=== PATIENT | male | born 1935 | race Hispanic/Latino ===

== ENCOUNTER 2018-12-02 20:23 | Emergency (ER) | payer OTHER ==
[~2018-12-02] VITALS: Ht 172.7 cm; Wt 72.6 kg
[~2018-12-02 20:23] MED LIST: Z.0.FINASTERIDE5 MG PO; Z.0.HYDROCHLOROTHIA2 PO; Z.0.LISINOPRIL20 MG PO; Z.0.LOVASTATIN20 MG PO; Z.0.OMEPRAZOLE20 M1 PO; Z.0.TAMSULOSIN HCL0. PO; Z.2.METFORMIN HCL500 PO
[2018-12-02 21:39] LABS: BASOPHILS % 0.4 % (0.0-1.0); EOSINOPHILS % 0.4 % (0.0-6.0); HEMOGLOBIN 8.7 g/dL (14.0-18.0); LYMPHOCYTES # (AUTO) 0.9 (1.0-3.2); LYMPHOCYTES % 16.1 % (18.0-39.1); MEAN CORPUSCULAR HEMOGLOBIN 31.1 pg (28-32); MEAN CORPUSCULAR HGB CONC 33.5 g/dL (31-35); MEAN CORPUSCULAR VOLUME 92.9 fL (81-99); MONOCYTES # (AUTO) 0.8 (0.2-0.8); MONOCYTES % 15.7 % (4.4-11.3); NEUTROPHILS # (AUTO) 3.5 (2.1-6.9); NEUTROPHILS % 66.5 % (38.7-80.0); PLATELET COUNT 117 x10e3/uL (140-360); RED CELL DISTRIBUTION WIDTH 13.6 % (11.7-14.4)
[2018-12-02 21:40] LABS: BILIRUBIN,URINE NEGATIVE (NEGATIVE); CLARITY,URINE CLOUDY (CLEAR); COLOR,URINE RED (YELLOW); KETONES,URINE NEGATIVE (NEGATIVE); LEUKOCYTE ESTERASE ,URINE TRACE (NEGATIVE); NITRITE,URINE NEGATIVE (NEGATIVE); PROTEIN,URINE DIPSTICK 2+ (NEGATIVE); URINE UROBILINOGEN 0.2 mg/dL (0.2 - 1)
[2018-12-02 21:51] LABS: BACTERIA,URINE FEW /HPF; EPITHELIAL CELLS,URINE RARE /LPF; RBC,URINE >50 /HPF (0-5); WBC,URINE (MAN) 0-5 /HPF (0-5)
[2018-12-02 21:56] LABS: ALBUMIN 3.8 g/dL (3.5-5.0); ALBUMIN/GLOBULIN RATIO 1.5 (0.8-2.0); ANION GAP 14.9 mmol/L (8-16); CALCIUM 8.4 mg/dL (8.4-10.2); CREATININE, SERUM 1.64 mg/dL (0.72-1.25); POTASSIUM 3.9 mmol/L (3.5-5.1)
[2018-12-02] MEDS ORDERED: SODIUM CHLORIDE 0.9% 1000ML 1,000 ML IV STA (22:19)
[2018-12-02] MEDS ORDERED: SODIUM CHLORIDE 0.9% 50ML 50 ML ONE (23:06)
[2018-12-02] MEDS ORDERED: IOPAMIDOL 370 MG/ML 200 ML INFUS..BTL INJ ONE (23:06)
[2018-12-03] MEDS ORDERED: SODIUM CHLORIDE 0.9% 100 ML ONE (00:44)
[2018-12-03] MEDS ORDERED: IOPAMIDOL 370 MG/ML 200 ML INFUS..BTL INJ ONE (00:45)
--- NOTE | 2018-12-03 00:49 | Diagnostic Imaging Report ---
EXAM: CT Abdomen and Pelvis WITHOUT and WITH contrast INDICATION: painless hematuria COMPARISON: None. TECHNIQUE: Abdomen and pelvis were scanned utilizing a multidetector helical scanner from the lung base to the pubic symphysis before and after administration of IV contrast. Coronal and sagittal reformations were obtained. CT Urogram protocol was performed. Scan was performed pre- and nephrogenic/excretory phase with a 10 minute split bolus in prone position. Excretory phase CT was repeated with patient in prone position to delineate anterior bladder wall. IV CONTRAST: 100 mL of Isovue 370 ORAL CONTRAST: Water COMPLICATIONS: None RADIATION DOSE: Total DLP: 1349 mGy*cm Estimated effective dose: (DLP x 0.015 x size factor) mSv CTDIvol has been reviewed. It is below the limits set by the Radiation Protocol Committee (RPC). Dose modulation, iterative reconstruction, and/or weight based adjustment of the mA/kV was utilized to reduce the radiation dose to as low as reasonably achievable. FINDINGS: LINES and TUBES: None. LOWER THORAX: Mild cardiomegaly with coronary artery calcifications/stones. Mild bronchial wall thickening in the lower lungs with some mucus plugging. HEPATOBILIARY: No focal hepatic lesions. No biliary ductal dilation. GALLBLADDER: Cholecystectomy clips in the gallbladder fossa. SPLEEN: No splenomegaly. PANCREAS: No focal masses or ductal dilatation. ADRENALS: No adrenal nodules KIDNEYS/URETERS: Mild bilateral perinephric fat stranding can be seen in the setting of renal insufficiency or senescence. Kidneys enhance symmetrically. No hydronephrosis. Small bilateral simple renal cysts. No solid mass lesions. No stones. GI TRACT: No abnormal distention, wall thickening, or evidence of bowel obstruction. Appendix is normal. PELVIC ORGANS/BLADDER: A 3.2 x 2 x 2.4 cm lobular endoluminal mucosal based nonmobile mass arising from/adherent to the right posterior urinary bladder wall. No obvious perivesicular extension. Enlarged lobular prostate measures up to 5.1 cm and indents the bladder floor. Fatty spermatic cords. LYMPH NODES: No lymphadenopathy. VESSELS: There is moderate atherosclerotic disease in the aorta and major arterial branches. PERITONEUM / RETROPERITONEUM: No free air or fluid. BONES: Right partial laminectomy at L5. Advanced degenerative changes in the spine with the anchylosis of the lower lumbar spine facets. Scalloped well-circumscribed sclerotic irregularity of the left iliac consistent with bone harvesting donor site SOFT TISSUES: Unremarkable. IMPRESSION: A 3.2 cm nonmobile nodular mucosal-based endoluminal mass along the right posterior bladder wall is concerning for malignancy. Recommend urology referral. Enlarged prostate indents the bladder floor. Findings in the lower lungs may reflect bronchitis. Signed by: Emiliano Maier DO on 12/03/2018 12:45 AM
[2018-12-03 02:18] VITALS: BP 136/56
== END 2018-12-03 01:53 | disposition home or self-care (01) ==
LOC: ER 20:23
DX: N30.01 Acute cystitis with hematuria (principal); N42.9 Disorder of prostate, unspecified
CPT/HCPCS: 36415; 74178; 80053; 81001; 85025; 87086; 99283; J7030; J7050; Q9967 ×2

== ENCOUNTER → 2019-09-13 | Outpatient (CLI) | payer OTHER ==
--- NOTE | 2019-09-13 12:53 | Diagnostic Imaging Report ---
EXAM: Renal Ultrasound INDICATION: ^[id number] ^1201 ^CYST OF KIDNEY COMPARISON: CT abdomen and pelvis of 12/07/2018 TECHNIQUE: Transverse and longitudinal images of the kidneys and bladder were obtained. FINDINGS: Right Kidney: Length: 10.9 cm Appearance: Normal echogenicity. Collecting system: No hydronephrosis Stones: None Cyst/Mass: None Left Kidney: Length: 12.2 cm Appearance: Normal echogenicity. Collecting system: No hydronephrosis Stones: None Cyst/Mass: Lower pole 1.5 x 1.1 x 1.2 cm anechoic simple cyst. Bladder: No mass or calculi. Bilateral ureteral jets visualized. Prevoid volume estimate of 306 cc. The prostate measures up to 5.1 x 4.1 x 4.8 cm with volume estimate of 53 cc. IMPRESSION: No hydronephrosis or renal calculus. Left lower pole simple cyst. Prostatomegaly. Signed by: Ray Watts MD on 09/13/2019 12:50 PM
== END ==
LOC: US 11:35
PROVIDERS: ATTEND Urology
DX: N28.1 Cyst of kidney, acquired (principal)
CPT/HCPCS: 76770

== ENCOUNTER → 2019-11-13 | Day surgery (SDC) | payer OTHER ==
[2019-11-08 14:50] LABS: BASOPHILS % 0.4 % (0.0-1.0); EOSINOPHILS # (AUTO) 0.1 (0.0-0.4); HEMATOCRIT 27.5 % (38.2-49.6); HEMOGLOBIN 9.2 g/dL (14.0-18.0); LYMPHOCYTES # (AUTO) 0.8 (1.0-3.2); MEAN CORPUSCULAR HEMOGLOBIN 31.8 pg (28-32); MEAN CORPUSCULAR HGB CONC 33.5 g/dL (31-35); MEAN CORPUSCULAR VOLUME 95.2 fL (81-99); MONOCYTES # (AUTO) 1.3 (0.2-0.8); MONOCYTES % 18.1 % (4.4-11.3); NEUTROPHILS % 68.4 % (38.7-80.0); PLATELET COUNT 131 x10e3/uL (140-360); RED BLOOD COUNT 2.89 x10e6/uL (4.3-5.7); RED CELL DISTRIBUTION WIDTH 14.4 % (11.7-14.4)
[2019-11-08 15:06] LABS: ANION GAP 12.5 mmol/L (8-16); CREATININE, SERUM 1.54 mg/dL (0.72-1.25); POTASSIUM 3.5 mmol/L (3.5-5.1)
[~2019-11-13] MED LIST changes: +AMLODIPINE BESYL5 MG PO; +ARTIFICIAL TEAR15 ML OU; +ASPIRIN81 MG PO; +AZITHROMYCIN250 MG PO; +B&O 60MG R/S 60 MG SUPP PR ONE; +BACITRACIN-POL3.5 GM OD; +BENEFIBER1 EAC1 PO; +CEFDINIR300 MG PO; +CEFTRIAXONE SOD 1 GM/NS 50 ML 50 ML IV ONE; +CENTRUM SILVER1 EAC3 PO; +FENOFIBRATE145 MG PO; +FENOFIBRATE160 MG PO; +GENTLE TEARS OU; +HYDRALAZINE HCL25 MG PO; +IOPAMIDOL 300MG/ML 50ML INFUS..BTL IV ONE; +LASIX20 MG PO; +LATANOPROST2.5 ML OS; +LIDOCAINE HCL 2% LOCAL INJ 5 ML SDV VIAL INJ ONE; +METOPROLOL TART25 MG PO; +ONDANSETRON HCL INJ 2MG/ML 2ML 2 MG/ML VIAL ONE; +OXYBUTYNIN CHLOR5 MG PO; +PROPOFOL IV EMULSION 10 MG/ML 20 ML VIAL ONE; +SEVOFLURANE INHAL SOLN 250 ML PEN BTL ONE
[2019-11-13 14:30] VITALS: BP 150/57
== END | disposition home or self-care (01) ==
LOC: OR 09:51
PROVIDERS: ATTEND Urology
DX: C67.1 Malignant neoplasm of dome of bladder (principal); E11.22 Type 2 diabetes mellitus with diabetic chronic kidney disease; I12.9 Hypertensive chronic kidney disease with stage 1 through stage 4 chronic kidney disease, or unspecified chronic kidney disease; N18.9 Chronic kidney disease, unspecified; N39.0 Urinary tract infection, site not specified; N13.70 Vesicoureteral-reflux, unspecified; N40.1 Benign prostatic hyperplasia with lower urinary tract symptoms; R39.14 Feeling of incomplete bladder emptying; R35.1 Nocturia; R80.9 Proteinuria, unspecified; N45.1 Epididymitis; H91.90 Unspecified hearing loss, unspecified ear; K21.9 Gastro-esophageal reflux disease without esophagitis; I44.4 Left anterior fascicular block; I45.10 Unspecified right bundle-branch block; Z01.810 Encounter for preprocedural cardiovascular examination; Z01.812 Encounter for preprocedural laboratory examination; Z11.59 Encounter for screening for other viral diseases
CPT/HCPCS: 36415; 71046; 74420; 80048; 82948; 85025; 88304; 88307; 93005; C1758; J0696; J2001; J2405; U0002

== ENCOUNTER 2019-11-16 21:17 | Emergency (ER) | payer OTHER ==
[~2019-11-16] VITALS: Ht 170.2 cm; Wt 70.3 kg
[~2019-11-16 21:17] MED LIST changes: -ARTIFICIAL TEAR15 ML OU; -ASPIRIN81 MG PO; -B&O 60MG R/S 60 MG SUPP PR ONE; -CEFDINIR300 MG PO; -CEFTRIAXONE SOD 1 GM/NS 50 ML 50 ML IV ONE; -FENOFIBRATE160 MG PO; -IOPAMIDOL 300MG/ML 50ML INFUS..BTL IV ONE; -LASIX20 MG PO; -LIDOCAINE HCL 2% LOCAL INJ 5 ML SDV VIAL INJ ONE; -ONDANSETRON HCL INJ 2MG/ML 2ML 2 MG/ML VIAL ONE; -OXYBUTYNIN CHLOR5 MG PO; -PROPOFOL IV EMULSION 10 MG/ML 20 ML VIAL ONE; -SEVOFLURANE INHAL SOLN 250 ML PEN BTL ONE
[2019-11-16] MEDS ORDERED: LIDOCAINE JELLY 2% 10ML URO-JET TOP ONE (21:45)
[2019-11-16] MEDS ORDERED: LIDOCAINE JELLY 2% 10ML URO-JET ONE (21:46)
[2019-11-16 22:27] VITALS: BP 149/57
== END 2019-11-16 22:41 | disposition home or self-care (01) ==
LOC: ER 21:22
DX: T83.091A Other mechanical complication of indwelling urethral catheter, initial encounter (principal); I10 Essential (primary) hypertension; E11.9 Type 2 diabetes mellitus without complications; E78.5 Hyperlipidemia, unspecified; K21.9 Gastro-esophageal reflux disease without esophagitis
CPT/HCPCS: 51700; 87086; 99283

== ENCOUNTER → 2019-12-26 | Outpatient (CLI) | payer OTHER ==
[~2019-12-26] MED LIST changes: +ARTIFICIAL TEAR15 ML OU; +FENOFIBRATE160 MG PO; +IOPAMIDOL 370 MG/ML 200 ML INFUS..BTL INJ ONE; +OXYBUTYNIN CHLOR5 MG PO; +SODIUM CHLORIDE 0.9% 50ML 50 ML ONE
[2019-12-26 08:22] LABS: CREATININE, SERUM 1.41 mg/dL (0.72-1.25)
--- NOTE | 2019-12-26 09:34 | Diagnostic Imaging Report ---
CT of the abdomen and pelvis with contrast TECHNIQUE: CT of the abdomen and pelvis WITH intravenous contrast and WITHOUT oral contrast. Dose modulation, iterative reconstruction, and/or weight-based adjustment of the mA/kV was utilized to reduce the radiation dose to as low as reasonably achievable. IV CONTRAST: 100 mL of Isovue 370 ORAL CONTRAST: None RADIATION DOSE: Total DLP: 324 mGy*cm COMPLICATIONS: None INDICATION: ^[id number] ^0820 ^MALIG NEOP OF BLADDER. COMPARISON: 12/07/2018. FINDINGS: LOWER THORAX: Moderate bilateral pleural effusions are noted. HEPATOBILIARY: Liver is diffusely hypoattenuating. No suspicious mass. Gallbladder is surgically absent. No biliary ductal dilatation. SPLEEN: No splenomegaly. PANCREAS: No focal masses or ductal dilatation. ADRENALS: No adrenal nodules. KIDNEYS/URETERS: Symmetric enhancement without hydronephrosis or suspicious mass. Ureters are not dilated. Left inferior pole hyperdense cyst is stable. PELVIC ORGANS/BLADDER: Previously identified enhancing mass in the posterior right urinary bladder is not well visualized on today's examination. Prostate measures 4.5 x 4.2 x 23.0 with a volume of 30 cc. PERITONEUM/RETROPERITONEUM: No free air or fluid. LYMPH NODES: No lymphadenopathy. VESSELS: Mild ectasia of the infrarenal abdominal aorta is noted measuring up to 2.8 cm in AP diameter. GI TRACT: Bowel loops are not dilated. Stomach and portions of colon are decompressed limiting evaluation. Normal appendix is noted. Mild retained stool burden is noted throughout the colon. No surrounding inflammatory changes are noted. BONES AND SOFT TISSUES: No acute osseous abnormality. Advanced degenerative changes of the lumbar spine are noted from L3 through S1 with significant posterior fusion and multilevel disc space narrowing. No suspicious blastic lesion is identified. Soft tissues are unremarkable IMPRESSION: 1. Previously identified bladder mass is not well visualized on this examination. No suspicious renal mass. Negative for hydronephrosis. 2. Stable hepatic steatosis and prostatomegaly. 3. Moderate bilateral pleural effusions. 4. Mildly ectatic infrarenal abdominal aorta measuring up to 2.8 cm. Signed by: Teodoro Silva MD on 12/26/2019 9:31 AM
== END ==
LOC: CT 07:33
PROVIDERS: ATTEND Urology
DX: C67.9 Malignant neoplasm of bladder, unspecified (principal)
CPT/HCPCS: 36415; 74177; 82565; 84520; Q9967

== ENCOUNTER 2019-12-27 11:37 | Observation (INO) | payer OTHER ==
[~2019-12-27] VITALS: Ht 170.2 cm; Wt 70.8 kg
[~2019-12-27 11:37] MED LIST changes: -ARTIFICIAL TEAR15 ML OU; -FENOFIBRATE160 MG PO; -IOPAMIDOL 370 MG/ML 200 ML INFUS..BTL INJ ONE; -OXYBUTYNIN CHLOR5 MG PO; -SODIUM CHLORIDE 0.9% 50ML 50 ML ONE
[2019-12-27] MEDS ORDERED: ASPIRIN 81 MG CHEW TAB PO ONE (12:15)
[2019-12-27 12:16] LABS: BASOPHILS % 0.4 % (0.0-1.0); EOSINOPHILS # (AUTO) 0.1 (0.0-0.4); EOSINOPHILS % 1.1 % (0.0-6.0); HEMOGLOBIN 9.4 g/dL (14.0-18.0); LYMPHOCYTES # (AUTO) 0.5 (1.0-3.2); LYMPHOCYTES % 9.2 % (18.0-39.1); MEAN CORPUSCULAR HEMOGLOBIN 30.4 pg (28-32); MEAN CORPUSCULAR HGB CONC 33.6 g/dL (31-35); MEAN CORPUSCULAR VOLUME 90.6 fL (81-99); MONOCYTES # (AUTO) 0.9 (0.2-0.8); MONOCYTES % 17.4 % (4.4-11.3); NEUTROPHILS # (AUTO) 3.7 (2.1-6.9); PLATELET COUNT 143 x10e3/uL (140-360); RED BLOOD COUNT 3.09 x10e6/uL (4.3-5.7); RED CELL DISTRIBUTION WIDTH 14.4 % (11.7-14.4)
[2019-12-27 12:29] LABS: ALBUMIN 3.8 g/dL (3.5-5.0); ALBUMIN/GLOBULIN RATIO 1.4 (0.8-2.0); ANION GAP 10.1 mmol/L (8-16); CALCIUM 8.6 mg/dL (8.4-10.2); CREATININE, SERUM 1.38 mg/dL (0.72-1.25); MAGNESIUM 1.7 MG/DL (1.3-2.1); POTASSIUM 3.1 mmol/L (3.5-5.1)
--- NOTE | 2019-12-27 12:29 | Diagnostic Imaging Report ---
X-ray chest frontal view History: Chest pressure Comparison: 11/08/2019 Findings: Lines and tubes: Not applicable Central airways: Unremarkable Cardiac silhouette: Likely cardiomegaly Mediastinal silhouettes: Atherosclerotic aorta Pleura: No pleural effusion, pneumothorax or thickening Diaphragms: Unremarkable Lungs: Opacity in both lower lung zones left more than right that could represent atelectasis/pneumonia. Skeletal structures: Unremarkable Extrathoracic soft tissues: Unremarkable Impression: Bilateral lower lobe opacities suggestive of atelectasis/pneumonia. Clinical correlation is requested. Signed by: Peewee Wei MD on 12/27/2019 12:25 PM
[2019-12-27] MEDS ORDERED: PANTOPRAZOLE 40 MG 10ML VIAL IV ONE (12:30)
[2019-12-27 12:31] LABS: INR 1.09; PROTHROMBIN TIME 14.7 seconds (11.9-14.5)
[2019-12-27 12:32] LABS: PARTIAL THROMBOPLASTIN TIME 37.3 seconds (23.8-35.5)
[2019-12-27 12:36] LABS: CREATINE KINASE MB 1.5 ng/mL (0-5.0)
[2019-12-27] MEDS ORDERED: POTASSIUM CHLORIDE 20 MEQ TAB CR PO STA (12:36)
--- NOTE | 2019-12-27 12:43 | Emergency Department Note ---
History of Present Illnes History of Present Illness Chief Complaint: Chest Pain History of Present Illness This is a 84 year old male Patient in from home with complaints of chest pressure and pain that woke him up last night at about 0300. Patient denies pain at this time but states that the pain when it was there was r adiating from his mid sternum to the left side of his chest. Patient reports that he was sweating when the pain started as well. Denies previous heart attack and denies previous stenting. No distress at this time. IV placed to left AC and blood drawn for lab analysis. EKG obtained. distress at this time. IV placed to left AC and blood drawn for lab analysis. EKG obtained. Historian: Patient Arrival Mode: Car Front Desk Admin Required: No Onset (how long ago): hour(s) Location: [facility] Quality: PRESSURE Radiation: Reports extremity (LEFT SHOULDER/ARM) Severity: moderate Onset quality: sudden Timing of current episode: intermittent Progression: waxing and waning Chronicity: new Context: Denies recent illness Relieving factors: none Exacerbating factors: none Associated symptoms: Reports chest pain, Reports diaphoresis, Reports shortness of breath (WITH CP); Denies cough, Denies fever/chills Past Medical/Family History Physician Review I have reviewed the patient's past medical and family history. Any updates have been documented here. Past Medical History Recent Fever: No Clinical Suspicion of Infectio: No New/Unexplained Change in Ment: No Past Medical History: Hypertension, Diabetes, GERD, Hyperlipedemia Other Medical History: BPH Past Surgical History: Back Surgery Other Surgery: TURP Social History Smoking Cessation: Never Smoker Counseling Performed: No Alcohol Use: None Any Illegal Drug Use: No TB Exposure/Symptoms: No Physically hurt or threatened: No Family History Family history of heart diseas: No Other Last Tetanus: UTD Any Pre-Existing Lines (PICC,: No Review of Systems Review of Systems Constitutional: Reports no symptoms EENTM: Reports no symptoms Cardiovascular: Reports as per HPI Respiratory: Reports no symptoms Gastrointestinal: Reports no symptoms Genitourinary: Reports no symptoms Musculoskeletal: Reports no symptoms Integumentary: Reports no symptoms Neurological: Reports no symptoms Psychological: Reports no symptoms Endocrine: Reports no symptoms Hematological/Lymphatic: Reports no symptoms Physical Exam Related Data Allergies: Coded Allergies: No Known Allergies (Unverified , 10/02/10) Triage Vital Signs Vital Signs Date Time Temp Pulse Resp B/P (MAP) Pulse Ox O2 Delivery O2 Flow Rate FiO2 12/27/19 11:53 98.2 76 24 178/68 97 Room Air Vital signs reviewed: Yes Physical Exam CONSTITUTIONAL Constitutional: Present well-developed, Present well-nourished HENT HENT: Present normocephalic, Present atraumatic, Present oropharynx clear/moist, Present nose normal HENT L/R: Present left ext ear normal, Present right ext ear normal EYES Eyes: Reports PERRL, Reports conjunctivae normal NECK Neck: Present ROM normal PULMONARY Pulmonary: Present effort normal, Present breath sounds normal CARDIOVASCULAR Cardiovascular: Present regular rhythm, Present heart sounds normal, Present capillary refill normal, Present normal rate GASTROINTESTINAL Abdominal: Present soft, Present nontender, Present bowel sounds normal GENITOURINARY Genitourinary: Present exam deferred SKIN Skin: Present warm, Present dry MUSCULOSKELETAL Musculoskeletal: Present ROM normal NEUROLOGICAL Neurological: Present alert, Present oriented x 3, Present no gross motor or sensory deficits PSYCHOLOGICAL Psychological: Present mood/affect normal, Present judgement normal Results Laboratory Result Diagram: 12/27/19 1200 12/27/19 1200 Laboratory Laboratory Tests Test 12/27/19 12:00 White Blood Count 5.30 x10e3/uL (4.8-10.8) Red Blood Count 3.09 x10e6/uL (4.3-5.7) Hemoglobin 9.4 g/dL (14.0-18.0) Hematocrit 28.0 % (38.2-49.6) Mean Corpuscular Volume 90.6 fL (81-99) Mean Corpuscular Hemoglobin 30.4 pg (28-32) Mean Corpuscular Hemoglobin Concent 33.6 g/dL (31-35) Red Cell Distribution Width 14.4 % (11.7-14.4) Platelet Count 143 x10e3/uL (140-360) Neutrophils (%) (Auto) 70.0 % (38.7-80.0) Lymphocytes (%) (Auto) 9.2 % (18.0-39.1) Monocytes (%) (Auto) 17.4 % (4.4-11.3) Eosinophils (%) (Auto) 1.1 % (0.0-6.0) Basophils (%) (Auto) 0.4 % (0.0-1.0) Neutrophils # (Auto) 3.7 (2.1-6.9) Lymphocytes # (Auto) 0.5 (1.0-3.2) Monocytes # (Auto) 0.9 (0.2-0.8) Eosinophils # (Auto) 0.1 (0.0-0.4) Basophils # (Auto) 0.0 (0.0-0.1) Absolute Immature Granulocyte (auto 0.10 x10e3/uL (0-0.1) Prothrombin Time 14.7 seconds (11.9-14.5) Prothromb Time International Ratio 1.09 Activated Partial Thromboplast Time 37.3 seconds (23.8-35.5) Sodium Level 137 mmol/L (136-145) Potassium Level 3.1 mmol/L (3.5-5.1) Chloride Level 102 mmol/L (98-107) Carbon Dioxide Level 28 mmol/L (22-29) Anion Gap 10.1 mmol/L (8-16) Blood Urea Nitrogen 26 mg/dL (7-26) Creatinine 1.38 mg/dL (0.72-1.25) Estimat Glomerular Filtration Rate 49 ML/MIN (60-) BUN/Creatinine Ratio 19 (6-25) Glucose Level 168 mg/dL (74-118) Calcium Level 8.6 mg/dL (8.4-10.2) Magnesium Level 1.7 MG/DL (1.3-2.1) Total Bilirubin 0.7 mg/dL (0.2-1.2) Aspartate Amino Transf (AST/SGOT) 19 IU/L (5-34) Alanine Aminotransferase (ALT/SGPT) 12 IU/L (0-55) Alkaline Phosphatase 30 IU/L (40-150) Creatine Kinase 41 IU/L (30-200) Total Protein 6.5 g/dL (6.5-8.1) Albumin 3.8 g/dL (3.5-5.0) Globulin 2.7 g/dL (2.3-3.5) Albumin/Globulin Ratio 1.4 (0.8-2.0) Lipase 38 U/L (8-78) Lab results reviewed: Yes Imaging Imaging results reviewed: Yes Impressions X-ray chest frontal view History: Chest pressure Comparison: 11/08/2019 Findings: Lines and tubes: Not applicable Central airways: Unremarkable Cardiac silhouette: Likely cardiomegaly Mediastinal silhouettes: Atherosclerotic aorta Pleura: No pleural effusion, pneumothorax or thickening Diaphragms: Unremarkable Lungs: Opacity in both lower lung zones left more than right that could represent atelectasis/pneumonia. Skeletal structures: Unremarkable Extrathoracic soft tissues: Unremarkable Impression: Bilateral lower lobe opacities suggestive of atelectasis/pneumonia. Clinical correlation is requested. Signed by: Peewee Wei MD on 12/27/2019 12:25 PM Procedures 12 Lead ECG Interpretation ECG Interpretation : ECG: ECG 1 Front Desk Admin: Interpreted by ED physician Date: Dec 27, 2019 Time: 12:00 Prior ECG tracings: reviewed Rhythm: sinus rhythm (WITH 1ST DEGREE AVB) Rate: normal BPM: 76 Conduction: bifascicular block (RBBB & LAFB) T wave inversion: aVR, aVL, V1, V2, V3 Other findings: LVH with strain Clinical Impression: abnormal ECG Assessment & Plan Medical Decision Making MDM CP WITH TYPICAL SX'S, NONE CURRENTLY - CBC, CHEM, ECG, CARDIACS, CXR - R/O STEMI/NSTEMI, ADMIT R/O ACS Reassessment Reassessment ADMIT TO DR BUNN (COVERING FOR Ya DEL CASTILLO) Assessment & Plan Final Impression: (1) Chest pain Depart Disposition: ADMITTED Last Vital Signs Date Time Temp Pulse Resp B/P (MAP) Pulse Ox O2 Delivery O2 Flow Rate FiO2 12/27/19 11:53 98.2 76 24 178/68 97 Room Air Home Meds Reported Medications Wheat Dextrin (BENEFIBER) 1 Each Powd.pack, 1 TAB PO DAILY 11/12/19 Bacitracin/Polymyxin B Sulfate (BACITRACIN-POLYMYXIN EYE OINT) 3.5 Gm Oint...g., 1 PUMP OD TID 11/12/19 Latanoprost (LATANOPROST) 2.5 Ml Drops, 1 DROP OS HS, BOTTLE 11/12/19 [Gentle Tears] No Conflict Check, 1 DROP OU DAILY 11/12/19 Azithromycin (Z-ISIAH) 250 Mg Tablet, 250 MG PO UD, #1 UDPKT Z-Pack 11/12/19 Metoprolol Tartrate (METOPROLOL TARTRATE) 25 Mg Tablet, 25 MG PO BID, TAB 10/6/20 Amlodipine Besylate (AMLODIPINE BESYLATE) 5 Mg Tablet, 5 MG PO DAILY, #30 TAB 11/12/19 Hydralazine Hcl (HYDRALAZINE HCL) 25 Mg Tab, 25 MG PO TID, TAB 11/12/19 Fenofibrate Nanocrystallized (FENOFIBRATE) 145 Mg Tablet, 160 MG PO DAILY 11/12/19 Mu-Vits-Min Th/Lycopene/Lutein (CENTRUM SILVER TABLET) 1 Each Tablet, 1 TAB PO DAILY 11/12/19 Omeprazole (Omeprazole) 20 Mg Tablet.dr, 20 MG PO DAILY 09/26/11 Lovastatin (Lovastatin) 20 Mg Tablet, 20 MG PO DAILY 09/26/11 Lisinopril (Lisinopril) 20 Mg Tablet, 40 MG PO DAILY 09/26/11 Hydrochlorothiazide (Hydrochlorothiazide) 25 Mg Tablet, 12.5 MG PO DAILY 09/26/11 Medications in the ED Pantoprazole Sodium 40 mg ONCE ONCE IV Last administered on 12/27/19at 12:14; Admin Dose 40 MG; Start 12/27/19 at 12:30; Stop 12/27/19 at 12:31; Status DC Aspirin 324 mg ONCE ONCE PO Last administered on 12/27/19at 12:14; Admin Dose 324 MG; Start 12/27/19 at 12:15; Stop 12/27/19 at 12:16; Status DC JIM MOREIRA MD Dec 27, 2019 12:43
[2019-12-27] MEDS ORDERED: MORPHINE SULFATE 2 MG/ML SYR 1ML IV PRN (14:15)
[2019-12-27] MEDS ORDERED: ONDANSETRON HCL INJ 2MG/ML 2ML 2 MG/ML VIAL IV PRN ×2 (14:15→21:45)
[2019-12-27] MEDS ORDERED: FENOFIBRATE160 MG PO (14:58)
[2019-12-27] MEDS ORDERED: OXYBUTYNIN CHLOR5 MG PO (14:59)
[2019-12-27] MEDS ORDERED: ARTIFICIAL TEAR15 ML OU (15:44)
[2019-12-27 15:51] VITALS: BP 166/70
[2019-12-27 15:54] VITALS: BP 166/70
[2019-12-27 16:23] VITALS: BP 166/70
[2019-12-27] MEDS: FAMOTIDINE 20 MG/2 ML VIAL IV SCH ×2 (16:23→21:03)
[2019-12-27 19:21] LABS: CREATINE KINASE MB 1.6 ng/mL (0-5.0)
[2019-12-27 20:00] VITALS: BP 173/53
[2019-12-27 20:53] VITALS: BP 173/53
[2019-12-27] MEDS ORDERED: DEXTROSE 50% SYRINGE 50 ML IV PRN (21:45)
[2019-12-27] MEDS ORDERED: POTASSIUM CHLORIDE 20 MEQ TAB CR PO PRN (21:45)
[2019-12-27] MEDS ORDERED: TRAMADOL HCL 50 MG TAB PO PRN (21:45)
[2019-12-27] MEDS ORDERED: HYDRALAZINE HCL 20 MG/ML VIAL IV PRN (21:45)
[2019-12-27] MEDS ORDERED: ACETAMINOPHEN 325 MG TAB PO PRN (21:45)
[2019-12-27] MEDS ORDERED: POLYETHYLENE GLYCOL 3350 17 GM PACK PO PRN (21:45)
[2019-12-27] MEDS ORDERED: BENZONATATE 100 MG CAP PO PRN (21:45)
[2019-12-27] MEDS ORDERED: ALBUTEROL/IPRATROPIUM 3 ML NEB NEB PRN (21:45)
[2019-12-27] MEDS ORDERED: DOCUSATE SODIUM 100 MG CAP PO PRN (21:45)
[2019-12-27] MEDS ORDERED: MELATONIN 5 MG TABLET PO PRN (21:45)
[2019-12-27] MEDS ORDERED: HYDRALAZINE HCL 25 MG TAB PO ONE (22:00)
[2019-12-27 23:40] LABS: CREATINE KINASE MB 1.6 ng/mL (0-5.0)
[2019-12-28] VITALS: BP 165/62
--- NOTE | 2019-12-28 00:35 | Consultation ---
DATE OF CONSULTATION: 12/27/2019 Cardiology Consultation Note REASON FOR THE CONSULTATION: Chest pain and shortness of breath. HISTORY OF PRESENT ILLNESS: The patient is an 84-year-old man with history of hypertension, diabetes mellitus type 2, hyperlipidemia, anemia, myelodysplastic syndrome (MDS) admitted with a 4-week history of fatigue, leg edema, and decreased appetite. The patient also gives a 3-day history of dry cough and shortness of breath. The patient's noticed he was wheezing at night the last three days. hot dipper on the day of admission, the patient developed retrosternal chest pressure/pain with radiation to the left arm and shoulder and associated with shortness of breath and diaphoresis. The patient denies palpitations, presyncope, syncope, or PND. The patient has stable one-pillow orthopnea. He denies fever, chills, sputum production, abdominal pain, nausea, vomiting or bleeding. His symptoms lasted about 1 to 2 hours and resolved spontaneously. When I saw the patient, he denied chest pain or shortness of breath. The patient has no history of coronary artery disease, VA, congestive heart failure, arrhythmias. He has history of myelodysplastic syndrome with severe anemia. He has received blood transfusion; most recently, 2 units of packed red blood cells on 12/04/2019 at [facility]. The patient's daughter told me that his pretransfusion hemoglobin was 7.5, and posttransfusion hemoglobin was 10.5 g. His hemoglobin on admission was 9 g. The patient also has history of bladder cancer and has had two surgical procedures to resect the tumors. Last surgery was September 2019; he had Resendiz catheter for two weeks after surgery. Subsequently, he developed an urinary tract infection that was treated. MEDICAL HISTORY: 1. Hypertension. 2. Diabetes type 2, controlled with diet. 3. Hyperlipidemia. 4. Bladder cancer. 5. Myelodysplastic syndrome. 6. Anemia. SURGICAL HISTORY: 1. Bladder tumor resection. 2. Back surgery. Home medications reviewed. REVIEW OF SYSTEMS: As noted above and hearing loss, otherwise 12- organ review of system was negative. PHYSICAL EXAMINATION: GENERAL: The patient is awake, alert, oriented to self and place. He is able to give some of the history. The patient is hard of hearing, so it is difficult for him to hear the questions. VITAL SIGNS: His blood pressure was 166/70, with a heart rate of 72, his oxygen saturation was 98% at room air and he was afebrile with a temperature of 98.2. HEAD AND NECK: Anicteric conjunctiva, supple neck; unable to assess jugular venous pressure. LUNGS: Mild crackles at both bases. CARDIAC: Regular rate, normal S1, S2, S3. No S4 heard. Very soft systolic murmur in the aortic area without radiation to the carotids. He has a soft bruit in the left carotid area. ABDOMEN: Soft, obese, nontender. EXTREMITIES: 1+ edema, left leg; trace edema, right leg. Electrocardiogram showed normal sinus rhythm with a 1st degree AV block, right bundle-branch block, left anterior fascicular block, voltage criteria for LVH and mild repolarization abnormalities; septal VA cannot be excluded. His chest x-ray showed infiltrates in both lung bases. LABORATORY DATA: Show a white blood cell count of 5.3, hemoglobin 9, hematocrit 28, platelet count 143,000. His basic metabolic profile shows a sodium of 137, potassium 3.1, chloride 102, bicarb 28, BUN is 26, creatinine 1.38, glucose 168, calcium 8.6, albumin of 3.8. His magnesium is 1.7; troponin level not elevated. His BNP is elevated at 885. ASSESSMENT AND PLAN: 1. Retrosternal chest pressure and shortness of breath with findings suggestive of congestive heart failure: Control blood pressure; echocardiogram ordered. Adjust medications after review of echocardiogram. 2. Abnormal CXR: Findings not suggestive of CHF; may represent atelectasis or infection. 3. Hypertension: Resume metoprolol tartrate 25 mg two times a day. The patient was taking lisinopril 40 mg a day at home. I have decreased it to 20 mg a day because of mildly elevated creatinine.; baseline creatinine is not known. Hydralazine 50 mg BID also ordered, first dose tonight. Add low dose furosemide (20 mg) daily and discontinue hydrochlorothiazide. Monitor blood pressure and heart rate closely and adjust medications based on level of blood pressure and echocardiographic findings. 4. Acute ischemia: There is no significant ST elevation or depression. First set of troponin is within reference range; monitor troponin levels. Continue aspirin, statin, BB. 5. Hyperlipidemia: Atorvastatin 20 mg at bedtime ordered. 6. 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 7. CKD vs DARRYL: Mildly elevated creatinine, may be his baseline; monitor creatinine and renal function closely. 8. DM2: Diet-controlled as outpatient; ADA diet; monitor POC glucose. 9. Mild hypokalemia: Potassium chloride 40 mEq x1 dose given. AM labs. Thank you for this consultation. MD VENTURA Cazares/MODL /[id number] MTDD
[2019-12-28 04:00] VITALS: BP 168/58
[2019-12-28 06:36] LABS: BASOPHILS % 0.4 % (0.0-1.0); EOSINOPHILS # (AUTO) 0.1 (0.0-0.4); EOSINOPHILS % 1.1 % (0.0-6.0); HEMATOCRIT 24.9 % (38.2-49.6); HEMOGLOBIN 8.4 g/dL (14.0-18.0); LYMPHOCYTES # (AUTO) 0.6 (1.0-3.2); LYMPHOCYTES % 11.1 % (18.0-39.1); MEAN CORPUSCULAR HEMOGLOBIN 30.9 pg (28-32); MEAN CORPUSCULAR HGB CONC 33.7 g/dL (31-35); MEAN CORPUSCULAR VOLUME 91.5 fL (81-99); MONOCYTES # (AUTO) 1.1 (0.2-0.8); MONOCYTES % 19.1 % (4.4-11.3); NEUTROPHILS # (AUTO) 3.7 (2.1-6.9); NEUTROPHILS % 66.9 % (38.7-80.0); PLATELET COUNT 120 x10e3/uL (140-360); RED BLOOD COUNT 2.72 x10e6/uL (4.3-5.7); RED CELL DISTRIBUTION WIDTH 14.5 % (11.7-14.4)
[2019-12-28 06:56] LABS: MAGNESIUM 1.7 MG/DL (1.3-2.1); PHOSPHORUS 3.2 MG/DL (2.3-4.7)
[2019-12-28 07:08] LABS: ALBUMIN 3.3 g/dL (3.5-5.0); ALBUMIN/GLOBULIN RATIO 1.4 (0.8-2.0); ANION GAP 10.2 mmol/L (8-16); CALCIUM 8.2 mg/dL (8.4-10.2); CHOL/HDL RATIO 3.4 (3.9-4.7); CREATININE, SERUM 1.19 mg/dL (0.72-1.25); POTASSIUM 3.2 mmol/L (3.5-5.1)
[2019-12-28 07:17] LABS: THYROID STIMULATING HORMONE 0.7 uIU/mL (0.350-4.940)
[2019-12-28 07:24] LABS: CREATINE KINASE MB 1.6 ng/mL (0-5.0)
--- NOTE | 2019-12-28 07:55 | NUR ---
RECEIVED PT RESTING IN BED. PT IN STABLE CONDITION. TELE APPLIED. NON-SKID SOCKS APPLIED. PT IS HARD OF HEARING. CALL LIGHT WITHIN REACH. WILL CONTINUE TO MONITOR.
[2019-12-28 08:40] VITALS: BP 166/58
[2019-12-28 08:46] VITALS: BP 166/58
[2019-12-28] MEDS: HYDRALAZINE HCL 25 MG TAB PO SCH ×2 (08:47→15:41)
[2019-12-28] MEDS: FAMOTIDINE 20 MG/2 ML VIAL IV SCH (08:51)
[2019-12-28] MEDS ORDERED: HYDRALAZINE HCL 25 MG TAB PO SCH (09:00)
[2019-12-28] MEDS ORDERED: ISOSORBIDE MONONITRATE 30 MG TAB CR PO SCH (09:00)
[2019-12-28] MEDS ORDERED: LISINOPRIL 20 MG TAB PO SCH ×2 (09:00)
[2019-12-28] MEDS ORDERED: ASPIRIN 81 MG ENTERIC COATED PO SCH (09:00)
[2019-12-28] MEDS ORDERED: AMLODIPINE BESYLATE 5 MG TAB PO SCH (09:00)
[2019-12-28] MEDS ORDERED: METOPROLOL TARTRATE 25 MG TAB PO SCH ×3 (09:00→17:00)
[2019-12-28] MEDS ORDERED: FUROSEMIDE 20 MG TAB PO SCH (09:00)
--- OUTSIDE RECORDS SUMMARY | 2019-12-28 10:04 | XMS REPORT | Continuity of Care Document ---
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 Name Role Phone mPowa Information Datical Unavailable Un available Problems Problem Status Onset Date Classification Date Reported Comments Source Thrombocytopenia, unspecified 11/24/2017 06/05/2018 [facility] ANEMIA Active 11/03/2017 [facility] R19.5 - OTHER FECAL ABNORMALITIES Active 06/08/2017 [facility] [place] Anemia, unspecified 06/05/2018 [facility] Hypertensive chronic kidney disease with stage 1 through stage 4 chronic kidney disease, or unspecified chronic kidney disease 06/05/2018 [facility] Chronic kidney disease, unspecified 06/05/2018 [facility] Type 2 diabetes mellitus with diabetic c hronic kidney disease 06/05/2018 [facility] Alzheimer's disease, unspecified 06/05/2018 [facility] 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 without behavioral disturbance 06/05/2018 [facility] Medications Medication Details Route Status Patient Instructions Ordering Provider Order Date Source Fenofibrate 160 MG Oral Tablet 160 mg = 1 tab, PO, Daily, # 90 tab, 0 Refill(s) Active 11/16/2017 [facility] amLODIPine 10 mg oral tablet 1 0 mg = 1 tab, PO, Daily, # 90 tab, 0 Refill(s) Active 11/16/2017 [facility] glimepiride 2 mg oral tablet 3 mg = 1.5 tab, PO, Breakfast, # 30 tab, 0 Refill(s) Active 11/16/2017 [facility] lovastatin 40 mg oral tablet 4 0 mg = 1 tab, PO, Bedtime, # 30 tab, 0 Refill(s) Active 11/16/2017 [facility] Allergies, Adverse Reactions, Alerts Substance Category Reaction Severity Reaction type Status Date Reported Comments Source No Known Medication Allergies Assertion Drug aller gy [facility] Immunizations No Data Provided for This Section Results Order Name Results Value Reference Range Date Interpretation Comments Source HEMATOLOGY MPV 11.7 7.4 - 10.4 11/16/2017 [facility] HEMATOLOGY RDW 14.2 11.5 - 14.5 11/16/2017 [facility] MCHC 34.5 32.0 - 36.0 11/16/2017 [facility] HEMATOLOGY WBC 4.9 3.7 - 10.4 11/16/2017 [facility] HEMATOLOGY Hgb 10.5 14.0 - 18.0 11/16/2017 [facility] RBC 3.29 4.70 - 6.10 11/16/2017 [facility] HEMATOLOGY Hct 30.4 42.0 - 54.0 11/16/2017 [facility] HEMATOLOGY MCV 92.4 80.0 - 94.0 11/16/2017 [facility] MCH 31.9 27.0 - 31.0 11/16/2017 [facility] Platelet 112 133 - 450 11/16/2017 [facility] Macrocyte 1+ *ABN* (11/16/17 10:18 AM) None Seen 11/16/2017 [facility] Bands 2.0 0.0 - 11.0 11/16/2017 [facility] Lymphocytes 31.0 20.0 - 40.0 11/16/2017 [facility] Monocytes 0.0 2.0 - 12.0 11/16/2017 [facility] Eosinophils 1.0 0.0 - 4.0 11/16/2017 [facility] Basophils 1.0 0.0 - 1.0 11/16/2017 [facility] RBC Morph Opal l (11/16/17 10:18 AM) 11/16/2017 [facility] Atypical Lymphs 0.0 <=0.0 % 11/16/2017 [facility] Monocytes # 0.0 0.0 - 0.8 11/16/2017 [facility] Lymphocytes # 1.5 1.0 - 5.5 11/16/2017 [facility] Eosinophils # 0.0 0.0 - 0.5 11/16/2017 [facility] Basophils # 0.0 0.0 - 0.2 11/16/2017 [facility] Segs 65.0 45.0 - 75.0 11/16/2017 [facility] Anisocyte 1+ *ABN* (11/16/17 10:18 AM) None Seen 11/16/2017 [facility] Tot Cell Ct 100 11/16/2017 [facility] Plt Morph Opal l (11/16/17 10:18 AM) 11/16/2017 [facility] Neutrophils # 3.3 1.5 - 8.1 11/16/2017 [facility] HEMATOLOGY Retic Auto 2.1 0.5 - 1.5 11/16/2017 [facility] REFERENCE LAB RESULTS Misc Lab See Comment 11/16/2017 Result Comment: Reference lab results sc anned in [facility]. Results displayed in [id number] Lab Documents (Imaged) under date/time results were scanned. Report sent for scanning on 01/01/2018 16:03. [facility] REFERENCE LAB RESULTS Test Name Chrom BM Genoptix 11/16/2017 [facility] Pathology Reports No Data Provided for This Section Diagnostic Reports Report Value Date Source Bone Marrow Biopsy or Trocar (VR) Patient Name: BRIAN COLBERT : 1935; Age: 82 years y/o Male MR: [id number] Study: Bone Marrow Biopsy or Trocar (VR) 11/16/2017 9:42 AM CDT Ordering Physician: Andrei Canales MD Clinical Indication: - thrombocytopenia; Comparison: None Timeout performed prior to the procedure. Total fluoroscopy time 25 seconds. Fluoroscopy dose 8mGy air kerma Patient prepped and draped in a sterile fashion. Lidocaine was used for local anesthesia. Versed and fentanyl used for conscious sedation. Total physician- patient [id number] sedation monitoring was 5 minutes. 11-gauge needle was advanced left shirt trimmer ior iliac crest marrow space. Hard copy fluoroscopic image recorded in PACS. 10 mL of marrow were aspirated. 11-gauge left iliac bone core biopsy obtained. Procedure well-tolerated clinically. SL: [id number] 11/16/2017 [facility] Upper GI w small bowel series DX Exam: Upper GI swallow exam with small bowel follow-through Reason for Exam: Positive fecal matter chemical test (R 19.5) Comparison Exam: CT scan 03/01/2007 Discussion: Crime Data Specialist view is unremarkable without evidence for dilated loops of bowel or abnormal air-fluid level patterns. Degenerative changes seen within the lumbar spine. Patient ingested barium and air crystals without incident. The esophagus is normal in appearance without evidence for mucosal irregularities or abnormal filling defects. No tertiary contraction waves or hiatal hernia. During the exam, there was no evidence seen for gastroesophageal reflux. The stomach and duodenum are unremarkable in appearance. After approximately 60 minutes, oral contrast material is seen within the ascending colon. The distribution of small bowel is unremarkable. The mucosal pattern of the small bowel is also unremarkable. There are no fixed intraluminal filling defects. No obstructing or constricting lesions. Fluoro time 1 minute, 57 seconds. Total exam DLP = 2713 mGy-cm. Impression: 1. Unremarkable upper GI swallow exam a nd small bowel follow-through. 07/11/2017 [facility] [place] Barium enema air contrast DX E xam: Barium enema with air contrast Reason for Exam: Z12.11 Encounter for screening for malignant neoplasm of colon - R19.5 Other fecal abnormalities Comparison Exam: CT scan 03/01/2007 Discussion: On digital designer view, there are no dilated loops of bowel or abnormal air-fluid level patterns. Multiple abraham are seen overlying the right upper quadrant of the abdomen. Air and barium were instilled into the rectum in a retrograde fashion up to the level of the cecum. No obstructing or constricting lesions identified. No fixed intraluminal masses can be identified. Fluoro time: 2 minutes, 30 seconds. Total exam DLP = 2632 mGy-cm. Impression: 1. Unremarkable barium enema with air contrast exam. 06/23/2017 [facility] [place] Consultation Notes No Data Provided for This Section Discharge Summaries No Data Provided for This Section History and Physicals No Data Provided for This Section Vital Signs Vital Sign Value Date Comments Source Height 172.72 cm 11/16/2017 [facility] BMI Calculated 25.6 11/16/2017 [facility] Weight 76.364 11/16/2017 [facility] Encounters Location Location Details Encounter Type Encounter Number Reason For Visit Attending Provider ADM Date DC Date Status Source [facility] [place] [facility] [id number] Devang Segovia 06/23/2017 06/24/2017 [facility] [place] [facility] [place] [facility] [id number] 00 Devang Vallecathalia 07/11/2017 07/12/2017 [facility] [place] [facility] Outpatient [id number] Andrei Canales 11/16/2017 11/17/2017 [facility] Procedures Procedure Code Date Perfomer Comments Source Bone marrow biopsy [id number] 02/06/2010 [facility] Cholecystectomy [id number] 02/06/1969 [facility] Lumbar discectomy<sup>1</sup> [id number] 02/06/1969 lumbar surgery [facility] Assessment and Plan No Data Provided for This Section Plan of Care No Data Provided for This Section Social History Social History Date Source Social History TypeResponse Alcohol Past, Type Beer. Last use: quit 1999. Previous treatment: None. Alcohol use interferes with work or home: No. Drinks more than intended: No. Others hurt by drinking: No. Ready to change: No. Household alcohol concerns: No. Smoking Status Former smoker; Type: Cigarettes; Previous treatment: None; Ready to change: No; Concerns about tobacco use in household: No; Exposure to Tobacco Smoke None; Cigarette Smoking Last 365 Days No; Reg Smoking Cessation Counseling No; Started at age: 20.0; Stopped at age: 40; Other Tobacco Frequency quit 1959's; entered on: 11/16/17 11/16/2017 [facility] No data available for this section 07/12/2017 [facility] [place] Family History No Data Provided for This Section Advance Directives No Data Provided for This Section Functional Status No Data Provided for This Section
--- OUTSIDE RECORDS SUMMARY | 2019-12-28 10:04 | XMS REPORT | Continuity of Care Document ---
Author Author [facility] t Organization [facility] Address [address] [place] [address] Phone Unavailable Care Team Providers Care Ham Pumper Name Role Phone MD JONES CALLE PCP Catalina MOREIRA Attphys Unavailable NGOC NAVARRETE Attphys Unavailable ANNIA DEL CASTILLO Attphys Unavailable Fernando ARRIAGA Attphys Unavailable Andrei Canales Attphys Devang Segovia Attphys ABNER DEL CASTILLO Admphys Unavailable Payers Payer Name Policy Type Policy Number Effective Date Expiration Date Fernando Santoro [id number] 2018 00:00:00 [facility] Problems Condition Name Condition Details Condition Category Status Onset Date Resolution Date Last Treatment Date Treating Clinician Comments Source ANEMIA ANEM IA Active 11/03/2017 [facility] Active 2017-11-03 00:00:00 2017-11-16 08:39:00 Titus Wan R19.5 - OTHER FECAL ABNORMALITIES R19.5 - OTHER FECAL ABNORMALITIES Active 06/08/2017 [facility] [place] [facility] Active 2017-06-08 00:01:00 2017-06-23 08:24:00 Titus Wan Malfunction of Resendiz catheter Problem Active [facility] Anemia, unspecified Anem ia, unspecified 06/05/2018 [facility] Problem 2018-06-05 12:09:58 Me agustin Wan Hypertensive chronic kidney disease with stage 1 through stage 4 chronic kidney disease, or unspecified chronic kidney disease Hypertensive chronic kidney disease with stage 1 through stage 4 chronic kidney disease, or unspecified chronic kidney disease 06/05/2018 [facility] Problem 2018-06-05 12:09:58 Malachisharon brown [place] Chronic kidney disease, unspecified Chronic kidney disease, unspecified 06/05/2018 [facility] Problem 2018-06-05 12:09:58 Titus Wan Type 2 diabetes mellitus with diabetic chronic kidney disease Type 2 diabetes mellitus with diabetic chronic kidney disease 06/05/2018 [facility] Problem 2018-06-05 12:09:58 agustin Wan Alzheimer's disease, unspecified Alzheimer's disease, unspecified 06/05/2018 [facility] Problem 2018-06-05 1 2:09:58 Titus Wan 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sewhere withou t behavioral disturbance 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sewhere without behavioral disturbance 06/05/2018 [facility] Problem 2018-06-05 12:09:58 Titus Wan Thrombocytopenia, unspecified Thrombocytopenia, unspecified 11/24/2017 06/05/2018 [facility] Problem 23-11-18 03:52:43 2018-06-05 12:09:58 2018-06-05 12:09:58 Titus Wan Allergies, Adverse Reactions, Alerts Allergy Name Allergy Type Status Severity Reaction(s) Onset Date Inacti ve Date Treating Clinician Comments Source No Known Allergies DA Active U 2019-12-04 00:00:00 [facility] No Known Allergies DA Active U 2013-04-12 00:00:00 [facility] No Known Medication Allergies No Known Medication Allergies Active Titus Wan Social History Social Habit Start Date Stop Date Quantity Comments Source Social History 2017-07-12 04:59:00 2017-07-12 04:59:00 Titus Wan Sex Assigned At 1935 00:00:00 1935 00:00:00 Male [facility] Medications Ordered Medication Name Filled Medication Name Start Date Stop Da te Current Medication? Ordering Clinician Indication Dosage Frequency Signature (SIG) Comments Components Source Fenofibrate 160 MG Oral Tablet 2017-11-16 13:59:00 Yes 160 mg = 1 tab, PO, Daily, # 90 tab, 0 Refill(s) Me agustin Wan amLODIPine 10 mg oral tablet 2017-11-16 13:59:00 Yes 10 mg = 1 tab, PO, Daily, # 90 tab, 0 Refill(s) Albina Wan glimepiride 2 mg oral tablet 2017-11-16 13:59:00 Yes 3 mg = 1.5 tab, PO, Breakfast, # 30 tab, 0 Refill(s) Malachi Wan lovastatin 40 mg oral tablet 2017-11-16 13:59:00 Yes 40 mg = 1 tab, PO, Bedtime, # 30 tab, 0 Refill(s) Leydi Wan Amlodipine Besylate Amlodipine Besylate Yes 5 Daily [facility] Azithromycin (Z-Burt) 250 Mg TABLET Azithromycin (Z-Burt) 250 Mg TABLET Yes 250 Use As Directed [facility] Bacitracin/Polymyxin B Sulfate (Bacitracin-Polymyxin E ye Oint) 3.5 Gm OINT...G. Bacitracin/Polymyxin B Sulfate (Bacitracin-Polymyxin Eye Oint) 3.5 Gm OINT...G. Yes 1 Three Times A Day [facility] Fenofibrate Nanocrystallized (Fenofibrate) 145 Mg TABL ET Fenofibrate Nanocrystallized (Fenofibrate) 145 Mg TABLET Yes 160 Daily [facility] Gentle Tears Gentle Tears Yes 1 Daily [facility] Hydralazine Hcl Hydralazine Hcl Yes 25 Three Ti mes A Day [facility] Hydrochlorothiazide Hydrochlorothiazide Yes 12.5 Daily [facility] Latanoprost Latanoprost Yes 1 Bedtime [facility] Lisinopril Lisinopril Yes 40 Daily [facility] Lovastatin Lovastatin Yes 20 Daily [facility] Metoprolol Tartrate Metoprolol Tartrate Yes 25 Twice A Day [facility] Mu-Vits-Min Th/Lycopene/Lutein (Centrum Silver Tablet) 1 Each TABLET Mu-Vits-Min Th/Lycopene/Lutein (Centrum Silver Tablet) 1 Each TABLET Yes 1 Daily [facility] Omeprazole Omeprazole Yes 20 Daily [facility] Wheat Dextrin (Benefiber) 1 Each POWD.PACK Wheat Dextr in (Benefiber) 1 Each POWD.PACK Yes 1 Daily [facility] Finasteride Finasteride 2019-11-12 00:00:00 No 5 D aily [facility] Metformin Hcl Metformin Hcl 2019-11-12 00:00:00 No 500 Daily [facility] Tamsulosin Hcl Tamsulosin Hcl 2019-11-12 00:00:00 No .4 Daily [facility] Vital Signs Vital Name Observation Time Observation Value Comments Source Weight 2019-11-16 21:32:00 155 [lb_av] [facility] BMI (Body Mass Index) 2019-11-16 21:32:00 24.3 kg/m2 [facility] Body Temperature 2019-11-13 13:28:00 99.2 [degF] [facility] Height 2017-11-16 13:57:00 172.72 cm [facility] BMI Calculated 2017-11-16 13:57:00 [place] Weight 2017-11-16 13:57:00 [facility] Procedures Procedure Date / Time Performed Performing Clinician [facility] e X-ray of chest, two views 2019-11-08 00:00:00 [facility] Ultrasound, renal 2019-09-13 00:00:00 [facility] Bone marrow biopsy 2010-02-06 06:00:00 [facility] Cholecystectomy 1969-02-06 06:00:00 [facility] Lumbar discectomy<sup>1</sup> 1969-02-06 06:00:00 [facility] Plan of Care Planned Activity Planned Date Details Comments Source Instructions Resendiz Catheter Care [facility] Encounters Start Date/Time End Date/Time Encounter Type Admission Type Attendi [facility] Facility Care Department Encounter ID Source 2019-11-16 21:22:00 2019-11-16 22:41:00 Departed Emergency Room [id number] [facility] 2019-11-13 09:51:00 2019-11-13 09:51:00 Registered Surgical Day Car e 3 ROSALBA, [facility] [id number] [facility] 2019-09-13 11:35:00 2019-09-13 11:35:00 Registered Clinic 3 DESI GONZALEZ, [facility] [id number] [facility] 2018-12-07 14:35:00 2018-12-11 13:45:00 Discharged Inpatient 1 ANNIA DEL CASTILLO [facility] [id number] [facility] 2018-12-02 20:23:00 2018-12-03 01:53:00 Departed Emergency Room 1 HERMINIO ARRIAGA [facility] [id number] [facility] 2017-11-16 08:39:00 2017-11-16 23:59:00 Outpatient Andrei Canales [facility] [id number] 2017-07-11 08:00:00 2017-07-11 23:59:00 Outpatient Selena Segovia [facility] [id number] 2017-06-23 08:09:00 2017-06-23 23:59:00 Outpatient Selena Segovia [facility] M[facility] [id number] Results Test Description Test Time Test Comments Results Result Comments Source CHEST SINGLE (PORTABLE) 2019-12-27 12:22:00 [facility] 1935 Sex: [place] [address] Patient Name: BRIAN COLBERT MR #: [id number] : 1935 Age/Sex: 84/M Req #: [id number] Adm Physician: Ordered by: JIM MOREIRA MD Report #: [id number] Location: ER Room/Bed: Procedure: [id number] DX/CHEST SINGLE (PORTABLE) Exam Date: 12/27/19 Exam Time: 1200 REPORT STATUS: Signed X-ray chest frontal view History: Chest pressure Comparison: 11/08/2019 Findings: Lines and tubes: Not applicable Central airways: Unremarkable Cardiac silhouette: Likely cardiomegaly Mediastinal silhouettes: Atherosclerotic aorta Pleura: No pleural effusion, pneumothorax or thickening Diaphragms: Unremarkable Lungs: Opacity in both lower lung zones left more than right that could represent atelectasis/pneumonia. Skeletal structures: Unremarkable Extrathoracic soft tissues: Unremarkable Impression: Bilateral lower lobe opacities suggestive of atelectasis/pneumonia. Clinical correlation is requested. Signed by: Peewee Asencio MD on 12/27/2019 12:25 PM Dictated By: PEEWEE ASENCIO MD Transcribed By: ELKE on 12/27/195 COPY TO: JIM MOREIRA MD CT ABDOMEN/PELVIS W 2019-12-26 09:21:00 [facility] 1935 Sex: M [facility] [address] [address] Patient Name: BRIAN COLBERT MR #: [id number] : 1935 Age/Sex: 84/M Req #: [id number] [facility] Physician: Ordered by: NGOC NAVARRETE MD Report #: [id number] Location: CT Room/Bed: Procedure: [id number] CT/CT ABDOMEN/PELVIS W Exam Date: 12/26/19 Exam Time: 0820 REPORT STATUS: Signed CT of the abdomen and pelvis with contrast TECHNIQUE: CT of the abdomen and pelvis WITH intravenous contrast and WITHOUT oral contrast. Dose modulation, iterative reconstruction, and/or weight-based adjustment of the mA/kV was utilized to reduce the radiation dose to as low as reasonably achievable. IV CONTRAST: 100 mL of Isovue 370 ORAL CONTRAST: None RADIATION DOSE: Total DLP: 324 mGy*cm COMPLICATIONS: None INDICATION: 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 COMPARISON: 12/07/2018. FINDINGS: LOWER THORAX: Moderate bilateral pleural effusions are noted. HEPATOBILIARY: Liver is diffusely hypoattenuating. No suspicious mass. Gallbladder is surgically absent. No biliary ductal dilatation. SPLEEN: No splenomegaly. PANCREAS: No focal masses or ductal dilatation. ADRENALS: No adrenal nodules. KIDNEYS/URETERS: Symmetric enhancement without hydronephrosis or suspicious mass. Ureters are not dilated. Left inferior pole hyperdense cyst is stable. PELVIC ORGANS/BLADDER: Previously identified enhancing mass in the posterior right urinary bladder is not well visualized on today's examination. Prostate measures 4.5 x 4.2 x 23.0 with a volume of 30 cc. PERITONEUM/RETROPERITONEUM: No free air or fluid. LYMPH NODES: No lymphadenopathy. VESSELS: Mild ectasia of the infrarenal abdominal aorta is noted measuring up to 2.8 cm in AP diameter. GI TRACT: Bowel loops are not dilated. Stomach and portions of colon are decompressed limiting evaluation. Normal appendix is noted. Mild retained stool burden is noted throughout the colon. No surrounding inflammatory changes are noted. BONES AND SOFT TISSUES: No acute osseous abnormality. Advanced degenerative changes of the lumbar spine are noted from L3 through S1 with significant posterior fusion and multilevel disc space narrowing. No suspicious blastic lesion is identified. Soft tissues are unremarkable IMPRESSION: 1. Previously identified bladder mass is not well visualized on this examination. No suspicious renal mass. Negative for hydronephrosis. 2. Stable hepatic steatosis and prostatomegaly. 3. Moderate bilateral pleural effusions. 4. Mildly ectatic infrarenal abdominal aorta measuring up to 2.8 cm. Signed by: Danielle Silva MD on 12/26/2019 9:31 AM Dictated By: DANIELLE SILVA MD 0 Transcribed By: ELKE on 12/26/19930 COPY TO: NGOC NAVARRETE MD CBC W/AUTO DIFF 2019-12-04 14:37:00 Test Item WHITE BLOOD CELL (test code = WBC) 7.9 K/mm3 4.5-12.5 N RED BLOOD CELL (test code = RBC) 3.40 mill/mm3 4.0-5.8 L HEMOGLOBIN (test code = HGB) 10.5 gram/dL 13.0-17.5 L HEMATOCRIT (test code = HCT) 32.0 % 42.0-52.0 L MEAN CELL VOLUME (test code = MCV) 94.1 fL 80-98 N MEAN CELL HGB (test code = MCH) 30.9 picogram 27.0-33.0 N MEAN CELL HGB CONCETRATION (test code = MCHC) 32.8 gram/dL 33.0-36. 0 L RED CELL DISTRIBUTION WIDTH (test code = RDW) 15.1 % 11.6-16. 2 N RED CELL DISTRIBUTION WIDTH SD (test code = RDW-SD) 50.4 fL 37 .0-51.0 N PLATELET COUNT (test code = PLT) 125 K/mm3 150-450 L MEAN PLATELET VOLUME (test code = MPV) 12.5 fL 6.7-11.0 H NEUTROPHIL % (test code = NT%) 73.8 % 39.0-69.0 H IMMATURE GRANULOCYTE % (test code = IG%) 1.3 % 0.0-5.0 N LYMPHOCYTE % (test code = LY%) 7.9 % 25.0-55.0 L MONOCYTE % (test code = MO%) 14.7 % 0.0-10.0 H EOSINOPHIL % (test code = EO%) 1.9 % 0.0-5.0 N BASOPHIL % (test code = BA%) 0.4 % 0.0-1.0 N NUCLEATED RBC % (test code = NRBC%) 0.0 % 0-0 N NEUTROPHIL # (test code = NT#) 5.86 K/mm3 1.8-7.7 N IMMATURE GRANULOCYTE # (test code = IG#) 0.10 x10 3/uL 0-0.03 H LYMPHOCYTE # (test code = LY#) 0.63 K/mm3 1.0-5.0 L MONOCYTE # (test code = MO#) 1.17 K/mm3 0-0.8 H EOSINOPHIL # (test code = EO#) 0.15 K/mm3 0.0-0.5 N BASOPHIL # (test code = BA#) 0.03 K/mm3 0.0-0.2 N NUCLEATED RBC # (test code = NRBC#) 0.00 K/mm3 0.0-0.1 N Capillary blood glucose measurement by glucometer (mass/volume)2019-11-13 10:06:00* Test Item Value Reference Range Interpretation Comments Bedside Glucose (test code = 67008-7) 128 70-120 Meter ID: [id number] [facility] 2019-11-08 15:09:00 [place] [address] Patient Name: BRIAN COLBERT MR #: [id number] : 1935 Age/Sex: 84/M Req #: [id number] Adm Physician: Ordered by: NGOC NAVARRETE MD Report #: [id number] Location: OR Room/Bed: Procedure: [id number] DX/CHEST 2 EWS Exam Date: 11/08/19 Exam Time: 1350 REPORT STATUS: Signed EXAMINATION: CHEST 2 VIEWS INDICATION: Pre-operative COMPARISON: None FINDING S: LINES/TUBES:None LUNGS:The lungs are well-inflated. No focal consol idation or pulmonary edema. PLEURA:No pleural effusion or pneumothorax. MEDIASTINUM:The cardiomediastinal silhouette appears normal in size and shape. BONES/SOFT TISSUES:No acute osseous injury. ABDOMEN:No free air under the diaphragm. IMPRESSION: No focal pneumonia or pulmonary edema. Signed by: Carroll Samaniego MD on 11/08/2019 3:09 PM Dictated By: CARROLL SAMANIEGO MD 1509 Transcribed By: Rayo BRAUN on 11/08/19 1509 COPY TO: NGOC NAVARRETE MD Fluoroscopic procedure less than one hour [id number] 14:57:00* Test Item Value Reference Range Interpretation Comments Coronavirus (PCR) (test code = Coronavirus (PCR)) NOT DETECTED NOTD ETECTED SARS-CoV-2 PCRHologic Aptima SARS-CoV-2 assay is a nucleic amplification test in tended for the qualitative detection of RNA from SARS-CoV-2 from nasopharyngeal (TRAUMA MANAGER) specimens. It is used under Emergency Use Authorization (EUA) by FDA.A posi tive result is indicative of the presence of SARS-CoV-2 RNA. Clinical correlatio n with patient history and other diagnostic information is necessary to determin e patient infection status.A negative (Not Detected) result does not preclude SA RS-CoV-2 infection. Clinical Correlation with patient history and other diagnost ic information should be used in patient management decisions.Invalid: Unable to generate a valid result on this specimen. Please submit a new specimen for repr at testing oc clinically indicated.Tesing performed by:[facility] Laboratory Services[address] [place] [address] [id number], Fabian borrego MD, PhDMemorial [facility]ann [facility] HospitalBl[facility] leukocytes automated count (number/volume)2019-11-08 14:16:00* Test Item Value Reference Range Interpretation Comments White Blood Count (test code = 6690-2) 7.29 4.8-10.8 [facility] erythrocytes automated count (number/volume)2019-11-08 14:16:00* Test Item Value Reference Range Interpretation Comments Red Blood Count (test code = 789-8) 2.89 4.3-5.7 [facility] Hospital[facility] hemoglobin measurement (moles/volume)2019-11-08 14:16:00* Test Item Value Reference Range Interpretation Comments Hemoglobin (test code = 71286-2) 9.2 14.0-18.0 [facility] HospitalAutomated blood hematocrit (volume fraction)2019-11-08 14:16:00* Test Item Value Reference Range Interpretation Comments Hematocrit (test code = 4544-3) 27.5 38.2-49.6 [facility] HospitalAutomated erythrocyte mean corpuscular [id number] 14:16:00* Test Item Value Reference Range Interpretation Comments Mean Corpuscular Volume (test code = 787-2) 95.2 81-99 [facility] HospitalAutomated erythrocyte mean corpuscular hemoglobin (mass per erythrocyte)2019-11-08 14:16:00* Test Item Value Reference Range Interpretation Comments Mean Corpuscular Hemoglobin (test code = 785-6) 31.8 28-32 [facility] HospitalAutom[facility] erythrocyte mean corpuscular hemoglobin concentration measurement (mass/volume)2019-11-08 14:16:00* Test Item Value Reference Range Interpretation Comments Mean Corpuscular Hemoglobin Concent (test code = 786-4) 33.5 31-35 [facility] HospitalRDW [id number]-[id number] 14:16:00* Test Item Value Reference Range Interpretation Comments Red Cell Distribution Width (test code = 35688-2) 14.4 11.7 -14.4 [facility] HospitalAutomated blood platelet count (count/volume)2019-11-08 14:16:00* Test Item Value Reference Range Interpretation Comments Platelet Count (test code = 777-3) 131 140-360 [facility] HospitalAutomated blood segmented neutrophil count as percentage of total zxnvsdadfe5818-09-07 14:16:00* Test Item Value Reference Range Interpretation Comments Neutrophils (%) (Auto) (test code = 76508-0) 68.4 38.7-80.0 [facility] HospitalAutomated blood lymphocyte count as percentage ot total [id number] 14:16:00* Test Item Value Reference Range Interpretation Comments Lymphocytes (%) (Auto) (test code = 736-9) 11.0 18.0-39.1 [facility] HospitalAutomated blood monocyte count as percentage of total livbeqmxqg9051-98-52 14:16:00* Test Item Value Reference Range Interpretation Comments Monocytes (%) (Auto) (test code = 5905-5) 18.1 4.4-11.3 [facility] HospitalAutomated blood eosinophil count as percentage of total cxwuawbcmc3681-06-84 14:16:00* Test Item Value Reference Range Interpretation Comments Eosinophils (%) (Auto) (test code = 713-8) 1.0 0.0-6.0 [facility] HospitalAutomated blood basophil count as percentage of total bxfwbsxqcq5760-52-52 14:16:00* Test Item Value Reference Range Interpretation Comments Basophils (%) (Auto) (test code = 706-2) 0.4 0.0-1.0 [facility] HospitalFluoroscopic procedure less than one hour qjygowez5951-65-60 14:16:00* Test Item Value Reference Range Interpretation Comments IM GRANULOCYTES % (test code = IM GRANULOCYTES %) 1.1 0.0- 1.0 [facility] HospitalAutomated blood neutrophil count 2019-11-08 14:16:00* Test Item Value Reference Range Interpretation Comments Neutrophils # (Auto) (test code = 751-8) 5.0 2.1-6.9 [facility] HospitalBlood lymphocytes count (number/volume) 2019-11-08 14:16:00* Test Item Value Reference Range Interpretation Comments Lymphocytes # (Auto) (test code = 34755-8) 0.8 1.0-3.2 [facility]Bl[facility] monocytes automated count (number/volume)2019-11-08 14:16:00* Test Item Value Reference Range Interpretation Comments Monocytes # (Auto) (test code = 742-7) 1.3 0.2-0.8 [facility] HospitalAutomated blood eosinophil count 2019-11-08 14:16:00* Test Item Value Reference Range Interpretation Comments Eosinophils # (Auto) (test code = 711-2) 0.1 0.0-0.4 [facility] HospitalAutomated blood basophil count (count/volume)2019-11-08 14:16:00* Test Item Value Reference Range Interpretation Comments Basophils # (Auto) (test code = 704-7) 0.0 0.0-0.1 [facility] HospitalFluoroscopic procedure less than one hour ohopxvrb7450-44-09 14:16:00* Test Item Value Reference Range Interpretation Comments Absolute Immature Granulocyte (auto (nic t code = Absolute Immature Granulocyte (auto) 0.08 0-0.1 [facility] sodium [facility] (moles/volume)2019-11-08 14:16:00* Test Item Value Reference Range Interpretation Comments Sodium Level (test code = 2951-2) 138 136-145 [facility] potassium measurement (moles/volume)2019-11-08 14:16:00* Test Item Value Reference Range Interpretation Comments Potassium Level (test code = 2823-3) 3.5 3.5-5.1 [facility] chloride measurement (moles/volume)2019-11-08 14:16:00* Test Item Value Reference Range Interpretation Comments Chloride Level (test code = 2075-0) 103 98-107 [facility] carbon dioxide, total measurement (moles/volume)2019-11-08 14:16:00* Test Item Value Reference Range Interpretation Comments Carbon Dioxide Level (test code = 2028-9) 26 22-29 [facility] plasma anion [id number] 14:16:00* Test Item Value Reference Range Interpretation Comments Anion Gap (test code = 99813-1) 12.5 8-16 [facility] urea nitrogen measurement (mass/volume)2019-11-08 14:16:00* Test Item Value Reference Range Interpretation Comments Blood Urea Nitrogen (test code = 3094-0) 27 7-26 [facility] creatinine measurement (mass/volume)2019-11-08 14:16:00* Test Item Value Reference Range Interpretation Comments Creatinine (test code = 2160-0) 1.54 0.72-1.25 [facility] urea nitrogen/creatinine mass hatct6805-03-19 14:16:00* Test Item Value Reference Range Interpretation Comments BUN/Creatinine Ratio (test code = 3097-3) 18 6-25 [facility] HospitalEstimated glomerular filtration rate (GFR) lwphcsnlmjqul8164-25-69 14:16:00* Test Item Value Reference Range Interpretation Comments Estimat Glomerular Filtration Rate (test code = 410074437) 43 >60 Ranges were taken from the National Kidney Disease Education Program and the [facility] literature.Reference ranges:60 or greater: Ymmxhb30-63 ( for 3 consecutive months): Chronic kidney disease 15 or less: Kidney failureMemorial Hermann Southwest HospitalGlucose bimwglplrjo9523-62-96 14:16:00* Test Item Value Reference Range Interpretation Comments Glucose Level (test code = BYP1345) 112 74-118 [facility] calcium measurement (mass/volume)2019-11-08 14:16:00* Test Item Value Reference Range Interpretation Comments Calcium Level (test code = 68173-0) 9.0 8.4-10.2 [facility] RETROPERIT[facility]AL [id number] 12:48:00 [facility] [address] [address] Patient Name: BRIAN COLBERT MR #: [id number] : 1935 Age/Sex: 84/M Req #: [id number] Adm Physician: Ordered by: NGOC NAVARRETE MD Report #: [id number] Location: Room/Bed: Procedure: [id number] US/US RENAL R ETROPERITONEAL COMP Exam Date: 09/13/19 Exam Time: 1 201 REPORT STATUS: Signed EXAM: Renal Ultrasound INDICATION: [id number] CYST OF KIDNEY COMPARISON: CT abdomen and pelvis of 12/07/2018 TECHNIQUE: Transverse and marilyn gitudinal images of the kidneys and bladder were obtained. FINDINGS: Right Kidney: Length: 10.9 cm Appearance: Normal echogenicity. Collecting system: No hydronephrosis Stones: None Cyst/Mass: None Left Kidney: Length: 12.2 cm Appearance: Normal echogenicity. Collecting sys tem: No hydronephrosis Stones: None Cyst/Mass: Lower pole 1.5 x 1.1 x 1.2 cm anechoic simple cyst. Bladder: No mass or calculi. Bilateral ureteral j ets visualized. Prevoid volume estimate of 306 cc. The prostate measures up to 5.1 x 4.1 x 4.8 cm with volume estimate of 53 cc. IMPRESSION: No hydronephrosis or renal calculus. Left lower pole simple cyst. Prosta tomegaly. Signed by: Carroll Samaniego MD on 09/13/2019 12:50 PM Dictated By : CARROLL SAMANIEGO MD 1250 Trans cribed By: ELKE on 09/13/19 1250 COPY TO: NGOC NAVARRETE MD CBC W/MANUAL [id number] 16:05:00* Test Item Value Reference Range Interpretation Comments WHITE BLOOD CELL (test code = WBC) 4.02 x10 3/uL 4.5-11.0 L RED BLOOD CELL (test code = RBC) 3.38 x10 6/uL 4.00-5.60 L HEMOGLOBIN (test code = HGB) 10.3 g/dL 12.5-16.9 L HEMATOCRIT (test code = HCT) 31.2 % 37.5-50.7 L MEAN CELL VOLUME (test code = MCV) 92.3 fL 81.0-99.0 N MEAN CELL HGB (test code = MCH) 30.5 pg 27.0-33.0 N MEAN CELL HGB CONCETRATION (test code = MCHC) 33.0 g/dL 33.0-37. 0 N RED CELL DISTRIBUTION WIDTH CV (test code = RDW) 15.2 % 11.5- 14.5 H RED CELL DISTRIBUTION WIDTH SD (test code = RDW-SD) 52.1 fL 37 .0-54.0 N PLATELET COUNT (test code = PLT) 82 x10 3/uL 150-400 L MEAN PLATELET VOLUME (test code = MPV) 13.0 fL 7.0-9.0 H SEGMENTED NEUTROPHILS (test code = SEG) 62.9 % 37-69 N LYMPHOCYTE (test code = LYMPH) 9.9 % 23-55 L MONOCYTE (test code = MON) 22.2 % 0-10 H EOSINOPHIL (test code = EOS) 2.5 % 0.0-4.0 N METAMYELOCYTE (test code = META) 2.5 % 0.0-0.0 H ANISOCYTOSIS (test code = ANISO) 1+ MICROCYTOSIS (test code = MICR) 1+ PLATELET ESTIMATE (test code = PLTEST) 104-130 THOUSAND ADEQUATE PLATELET MORPHOLOGY (test code = PLTMORPH) LARGE PLATELETS RARE GIANT PLATELETS CBC W/MANUAL [id number] 16:05:00* Test Item Value Reference Range Interpretation Comments WHITE BLOOD CELL (test code = WBC) 4.02 x10 3/uL 4.5-11.0 L RED BLOOD CELL (test code = RBC) 3.38 x10 6/uL 4.00-5.60 L HEMOGLOBIN (test code = HGB) 10.3 g/dL 12.5-16.9 L HEMATOCRIT (test code = HCT) 31.2 % 37.5-50.7 L MEAN CELL VOLUME (test code = MCV) 92.3 fL 81.0-99.0 N MEAN CELL HGB (test code = MCH) 30.5 pg 27.0-33.0 N MEAN CELL HGB CONCETRATION (test code = MCHC) 33.0 g/dL 33.0-37. 0 N RED CELL DISTRIBUTION WIDTH CV (test code = RDW) 15.2 % 11.5- 14.5 H RED CELL DISTRIBUTION WIDTH SD (test code = RDW-SD) 52.1 fL 37 .0-54.0 N PLATELET COUNT (test code = PLT) x10 3/uL 150-400 SEE PLATELET ESTIMATE BELOWPreviously reported result: 82 x10\S\3/uLEdited by: [email or web address] on 02/05/19:967659 1605: PLT previously reported as: 82 L x10\S\3/uL MEAN PLATELET VOLUME (test code = MPV) 13.0 fL 7.0-9.0 H SEGMENTED NEUTROPHILS (test code = SEG) 62.9 % 37-69 N LYMPHOCYTE (test code = LYMPH) 9.9 % 23-55 L MONOCYTE (test code = MON) 22.2 % 0-10 H EOSINOPHIL (test code = EOS) 2.5 % 0.0-4.0 N METAMYELOCYTE (test code = META) 2.5 % 0.0-0.0 H ANISOCYTOSIS (test code = ANISO) 1+ MICROCYTOSIS (test code = MICR) 1+ PLATELET ESTIMATE (test code = PLTEST) 104-130 THOUSAND ADEQUATE PLATELET MORPHOLOGY (test code = PLTMORPH) LARGE PLATELETS RARE GIANT PLATELETS CBC W/MANUAL [id number] 15:19:00* Test Item Value Reference Range Interpretation Comments WHITE BLOOD CELL (test code = WBC) 4.02 x10 3/uL 4.5-11.0 L RED BLOOD CELL (test code = RBC) 3.38 x10 6/uL 4.00-5.60 L HEMOGLOBIN (test code = HGB) 10.3 g/dL 12.5-16.9 L HEMATOCRIT (test code = HCT) 31.2 % 37.5-50.7 L MEAN CELL VOLUME (test code = MCV) 92.3 fL 81.0-99.0 N MEAN CELL HGB (test code = MCH) 30.5 pg 27.0-33.0 N MEAN CELL HGB CONCETRATION (test code = MCHC) 33.0 g/dL 33.0-37. 0 N RED CELL DISTRIBUTION WIDTH CV (test code = RDW) 15.2 % 11.5- 14.5 H RED CELL DISTRIBUTION WIDTH SD (test code = RDW-SD) 52.1 fL 37 .0-54.0 N PLATELET COUNT (test code = PLT) 82 x10 3/uL 150-400 L MEAN PLATELET VOLUME (test code = MPV) 13.0 fL 7.0-9.0 H ANISOCYTOSIS (test code = ANISO) PLATELET ESTIMATE (test code = PLTEST) THOUSAND ADEQUATE Bedside [id number] 10:54:00* Test Item Value Reference Range Interpretation Comments Bedside Glucose (test code = 56791-5) 169 70-120 H Meter ID: [id number] HospitalWhite Blood Count 2018-12-11 05:28:00* Test Item Value Reference Range Interpretation Comments White Blood Count (test code = 6690-2) 6.11 4.8-10.8 [facility] HospitalRed Blood [id number] 05:28:00* Test Item Value Reference Range Interpretation Comments Red Blood Count (test code = 789-8) 2.36 4.3-5.7 L [facility] HospitalHemoglobin2019-11-05 05:28:00* Test Item Value Reference Range Interpretation Comments Hemoglobin (test code = 79639-2) 7.3 14.0-18.0 L [facility] HospitalHematocrit2019-11-05 05:28:00* Test Item Value Reference Range Interpretation Comments Hematocrit (test code = 4544-3) 22.2 38.2-49.6 L [facility] HospitalMean Corpuscular Emgeak2342-90-55 05:28:00* Test Item Value Reference Range Interpretation Comments Mean Corpuscular Volume (test code = 787-2) 94.1 81-99 [facility] HospitalMean Corpuscular Fdopkzyklj4429-55-17 05:28:00* Test Item Value Reference Range Interpretation Comments Mean Corpuscular Hemoglobin (test code = 785-6) 30.9 28-32 [facility] HospitalMean Corpuscular Hemoglobin Concent 2018-12-11 05:28:00* Test Item Value Reference Range Interpretation Comments Mean Corpuscular Hemoglobin Concent (test code = 786-4) 32.9 31-35 [facility] HospitalRed Cell Distribution Pwytk4099-78-43 05:28:00* Test Item Value Reference Range Interpretation Comments Red Cell Distribution Width (test code = 87138-8) 13.6 11.7 -14.4 [facility] HospitalPlatelet Pvygd7121-10-83 05:28:00* Test Item Value Reference Range Interpretation Comments Platelet Count (test code = 777-3) 114 140-360 L [facility] HospitalNeutrophils (%) (Auto)2018-12-11 05:28:00 * Test Item Value Reference Range Interpretation Comments Neutrophils (%) (Auto) (test code = 84704-2) 66.8 38.7-80.0 [facility] HospitalLymphocytes (%) (Auto)2018-12-11 05:28:00 * Test Item Value Reference Range Interpretation Comments Lymphocytes (%) (Auto) (test code = 736-9) 12.4 18.0-39.1 L [facility] HospitalMonocytes (%) (Auto)2018-12-11 05:28:00* Test Item Value Reference Range Interpretation Comments Monocytes (%) (Auto) (test code = 5905-5) 18.8 4.4-11.3 H [facility] HospitalEosinophils (%) (Auto)2018-12-11 05:28:00 * Test Item Value Reference Range Interpretation Comments Eosinophils (%) (Auto) (test code = 713-8) 0.7 0.0-6.0 [facility] HospitalBasophils (%) (Auto)2018-12-11 05:28:00* Test Item Value Reference Range Interpretation Comments Basophils (%) (Auto) (test code = 706-2) 0.2 0.0-1.0 [facility] HospitalIM GRANULOCYTES %2018-12-11 05:28:00* Test Item Value Reference Range Interpretation Comments IM GRANULOCYTES % (test code = IM GRANULOCYTES %) 1.1 0.0- 1.0 H [facility] HospitalNeutrophils # (Auto)2018-12-11 05:28:00* Test Item Value Reference Range Interpretation Comments Neutrophils # (Auto) (test code = 751-8) 4.1 2.1-6.9 [facility] HospitalLymphocytes # (Auto)2018-12-11 05:28:00* Test Item Value Reference Range Interpretation Comments Lymphocytes # (Auto) (test code = 34950-3) 0.8 1.0-3.2 L [facility] HospitalMonocytes # (Auto)2018-12-11 05:28:00* Test Item Value Reference Range Interpretation Comments Monocytes # (Auto) (test code = 742-7) 1.2 0.2-0.8 H [facility] HospitalEosinophils # (Auto)2018-12-11 05:28:00* Test Item Value Reference Range Interpretation Comments Eosinophils # (Auto) (test code = 711-2) 0.0 0.0-0.4 [facility] HospitalBasophils # (Auto)2018-12-11 05:28:00* Test Item Value Reference Range Interpretation Comments Basophils # (Auto) (test code = 704-7) 0.0 0.0-0.1 [facility] HospitalAbsolute Immature Granulocyte (auto 2018-12-11 05:28:00* Test Item Value Reference Range Interpretation Comments Absolute Immature Granulocyte (auto (nic t code = Absolute Immature Granulocyte (auto) 0.07 0-0.1 [facility] HospitalIR [id number] 11:11:00 [facility] [address] [address] Patient Name: BRIAN COLBERT MR #: [id number] : 02/1935 Age/Sex: 83/M Req #: [id number] Adm Physician: ABNER DEL CASTILLO DO Ordered by: NGOC NAVARRETE MD Report #: [id number] Location: MED/SURG Room/Bed: [facility] Procedure: [id number] DX /IR CONSULT Exam Date: Exam Time: REPORT STATUS: Signed PROCEDURE: Antegrade nephr ostogram, removal of right nephrostomy catheter. Procedural Personnel Att ending physician(s): Carroll Samaniego MD Fellow physician(s): None Resident physi eloise(s): None Advanced practice provider(s): None Pre-procedure diagnosis : Bladder tumor Post-procedure diagnosis: Same Indication: Safety nephrostom y no longer needed. Patent internal nephroureteral stent. Additional clinica l history: None Complications: No immediate complications. IMPRESSION: Antegrade nephrostogram showing patent flow of contrast through the contracts intern al nephroureteral stent. Successful removal of right percutaneous nephros saúl catheter. Plan: Clinical followup per urology service. PROCEDURE SUMMARY - Target organ: Right [place] kidney - Antegrade nephrostogram(s) via the existi ng access - Removal of indwelling right PCN. - Additional procedure(s): None PROCEDURE DETAILS: Pre-procedure Consent: Informed consent for the procedure including risks, benefits and alternatives was obtained and time-out was performed prior to the procedure. Preparation: The site was prepared and draped using maximal sterile barrier technique including cutaneous antisepsis. Anesthesia/sedation Level of anesthesia/sedation: No sedation Right antegrade nephrostogram, PCN removal Local anesthesia was administered. Initi al nephrostogram was performed. A wire was placed through the existing nephros saúl tube and it was removed. Findings: Patent flow of contrast through inter nal double J stent. Additional genitourinary system intervention Genitour inary intervention: None Location of intervention: Not applicable Device use d: Not applicable Description of intervention: Not applicable Post-intervent ion findings: Not applicable Contrast Contrast agent: Isovue [address] volume (mL): 10cc Radiation Dose Fluoroscopy time (minutes): 0.8 R eference air kerma (mGy): 8.3 Additional Details Additional description of procedure: None Equipment details: None Specimens removed: None Estimat ed blood loss (mL): Less than 10 Standardized report: SIR_GUCatheterExchange_v 3 Attestation Signer name: Carroll Samaniego MD I attest that I was present f or the entire procedure. I reviewed the stored images and agree with the repor t as written. Signed by: Carroll Samaniego MD on 12/10/2018 11:16 AM Dictated By: CARROLL SAMANIEGO MD 1440 COPY TO: NGOC NAVARRETE MD NEPH TUBE REMOVAL W/FL [id number] 11:11:[address] [address] Patient Name: BRIAN COLBERT MR #: [id number] : 1935 Age/Sex: 83/M Req #: [id number] Adm Physician: ABNER DEL CASTILLO DO Ordered by: NGOC NAVARRETE MD Report #: [id number] Location: MED/SURG Room/Bed: [facility] Procedure: [id number] IR /NEPH TUBE REMOVAL W/FL RIGHT Exam Date: Exam Time: REPORT STATUS: Signed PROCEDUR E: Antegrade nephrostogram, removal of right nephrostomy catheter. Procedur al Personnel Attending physician(s): Carroll Samaniego MD Fellow physician(s): Melony hardy Resident physician(s): Kendall Advanced practice provider(s): None Pre-p rocedure diagnosis: Bladder tumor Post-procedure diagnosis: Same Indication: Safety nephrostomy no longer needed. Patent internal nephroureteral stent. Additional clinical history: None Complications: No immediate complications . IMPRESSION: Antegrade nephrostogram showing patent flow of contrast through the internal nephroureteral stent. Successful removal of right pe rcutaneous nephrostomy catheter. Plan: Clinical followup per urology ser vice. PRO CEDURE SUMMARY - Target organ: Right [place] kidney - Antegrade nephrostogram (s) via the existing access - Removal of indwelling right PCN. - Additional procedure(s): None PROCEDURE DETAILS: Pre-procedure Consent: Informe d consent for the procedure including risks, benefits and alternatives was obt ained and time-out was performed prior to the procedure. Preparation: The site was prepared and draped using maximal sterile barrier technique including cut aneous antisepsis. Anesthesia/sedation Level of anesthesia/sedation: No s edation Right antegrade nephrostogram, PCN removal Local anesthesia was a dministered. Initial nephrostogram was performed. A wire was placed through th e existing nephrostomy tube and it was removed. Findings: Patent flow of cont rast through internal double J stent. Additional genitourinary system inter vention Genitourinary intervention: None Location of intervention: Not appli cable Device used: Not applicable Description of intervention: Not applicabl e Post-intervention findings: Not applicable Contrast Contrast agent: I sovue 370 Contrast volume (mL): 10cc Radiation Dose Fluoroscopy time (m inutes): 0.8 Reference air kerma (mGy): 8.3 Additional Details Addit ional description of procedure: None Equipment details: None Specimens remov ed: None Estimated blood loss (mL): Less than 10 Standardized report: SIR_GU CatheterExchange_v3 Attestation Signer name: Carroll Samaniego MD I attest th at I was present for the entire procedure. I reviewed the stored images and ag ree with the report as written. Signed by: Carroll Samaniego MD on 2018 11:16 AM Dictated By: CARROLL SAMANIEGO MD 1440 Transcribed By: ELKE on 12/18/18 1440 COPY T O: NGOC NAVARRETE MD Differential Total Cells Rspjkid7655-95-46 08:08:00* Test Item Value Reference Range Interpretation Comments Differential Total Cells Counted (test code = Differangel tial Total Cells Counted) 100 [facility] HospitalNeutrophils % (Manual)2018-12-10 08:08:00 * Test Item Value Reference Range Interpretation Comments Neutrophils % (Manual) (test code = 63935-1) 73 40-74 [facility] HospitalBand Neutrophils %2018-12-10 08:08:00* Test Item Value Reference Range Interpretation Comments Band Neutrophils % (test code = 764-1) 1 [facility] HospitalLymphocytes % (Manual)2018-12-10 08:08:00 * Test Item Value Reference Range Interpretation Comments Lymphocytes % (Manual) (test code = 737-7) 11 19-48 L [facility] HospitalMonocytes % (Manual)2018-12-10 08:08:00* Test Item Value Reference Range Interpretation Comments Monocytes % (Manual) (test code = 744-3) 13 3.4-9.0 H [facility] HospitalBasophils % (Manual)2018-12-10 08:08:00* Test Item Value Reference Range Interpretation Comments Basophils % (Manual) (test code = 59743-6) 2 0-1.5 H [facility] HospitalPlatelet Pcaetsfa3096-17-83 08:08:00* Test Item Value Reference Range Interpretation Comments Platelet Estimate (test code = 09538-1) SLIGHTLY DECREASED [facility] HospitalPlatelet Morphology Jndnlja5492-50-13 08:08:00* Test Item Value Reference Range Interpretation Comments Platelet Morphology Comment (test code = 16018-9) FEW LARGE [facility] HospitalPolychromasia2019-11-04 08:08:00* Test Item Value Reference Range Interpretation Comments Polychromasia (test code = 49355-5) FEW [facility] HospitalPoikilocytosis2019-11-04 08:08:00* Test Item Value Reference Range Interpretation Comments Poikilocytosis (test code = 779-9) SLIGHT [facility] HospitalAnisocytosis2019-11-04 08:08:00* Test Item Value Reference Range Interpretation Comments Anisocytosis (test code = 702-1) SLIGHT [facility] HospitalMacrocytosis2019-11-04 08:08:00* Test Item Value Reference Range Interpretation Comments Macrocytosis (test code = 738-5) SLIGHT [facility] HospitalTear Drop Uwlyi4606-93-15 08:08:00* Test Item Value Reference Range Interpretation Comments Tear Drop Cells (test code = 7791-7) FEW [facility] HospitalHelmet Wmwww8005-75-28 08:08:00* Test Item Value Reference Range Interpretation Comments Helmet Cells (test code = 98416-3) SLIGHT [facility] HospitalAcanthocytes2019-11-04 08:08:00* Test Item Value Reference Range Interpretation Comments Acanthocytes (test code = 7789-1) FEW [facility] HospitalRed Cell Morphology Wpbwmke5911-52-67 08:08:00* Test Item Value Reference Range Interpretation Comments Red Cell Morphology Comment (test code = 6742-1) [facility]NORMAL [facility] Uwdse1569-48-75 06:19:00* Test Item Value Reference Range Interpretation Comments Sodium Level (test code = 2951-2) 137 136-145 [facility] HospitalPotassium Gbhqb0270-40-37 06:19:00* Test Item Value Reference Range Interpretation Comments Potassium Level (test code = 2823-3) 4.1 3.5-5.1 [facility] HospitalChloride Gykzh7560-42-78 06:19:00* Test Item Value Reference Range Interpretation Comments Chloride Level (test code = 2075-0) 106 98-107 [facility] HospitalCarbon Dioxide Hcajp1775-69-66 06:19:00* Test Item Value Reference Range Interpretation Comments Carbon Dioxide Level (test code = 2028-9) 23 22-29 [facility] HospitalAnion Qfa2583-22-70 06:19:00* Test Item Value Reference Range Interpretation Comments Anion Gap (test code = 03717-5) 12.1 8-16 [facility] HospitalBlood Urea Efbmplof1480-26-99 06:19:00* Test Item Value Reference Range Interpretation Comments Blood Urea Nitrogen (test code = 3094-0) 14 7-26 [facility] HospitalCreatinine2019-11-04 06:19:00* Test Item Value Reference Range Interpretation Comments Creatinine (test code = 2160-0) 1.09 0.72-1.25 [facility] HospitalBUN/Creatinine Uhddc5063-30-06 06:19:00* Test Item Value Reference Range Interpretation Comments BUN/Creatinine Ratio (test code = 3097-3) 13 6-25 [facility] HospitalEstimat Glomerular Filtration Rate 2018-12-10 06:19:00* Test Item Value Reference Range Interpretation Comments Estimat Glomerular Filtration Rate (test code = 047031494) > 60 >60 Ranges were taken from the National Kidney Disease Education Program and the [facility] literature.Reference ranges:60 or greater: Ymekuu18-06 ( for 3 consecutive months): Chronic kidney disease 15 or less: Kidney failureMemorial Hermann Southwest HospitalGlucose Egicx2165-67-68 06:19:00* Test Item Value Reference Range Interpretation Comments Glucose Level (test code = ESC3337) 107 74-118 [facility] HospitalCalcium Kntxd6214-12-66 06:19:00* Test Item Value Reference Range Interpretation Comments Calcium Level (test code = 09222-1) 8.1 8.4-10.2 L [facility] MXI8435-86-96 20:57:00 [facility] [address] [address] Patient Name: BRIAN COLBERT MR #: [id number] : 1935 Age/Sex: 83/M Req #: [id number] Adm Physician: ABNER DEL CASTILLO DO Ordered by: NGOC NAVARRETE MD Report #: [id number] Location: MED/SURG Room/Bed: [facility] Procedure: [id number] IR /SPECIAL PROCEDURE IN [employer] Exam Date: Exam Time : REPORT STATUS: Signed Date an d Time: 12/07/2018 Procedure: Right percutaneous nephrostogram with antegrad e ureteral stent placement and nephrostomy catheter placement Primary ope rator: Dr. Grissom Pre-operative diagnosis: Bladder mass near the right urete ral orifice status post biopsy/excision with failed retrograde stent Post-op erative diagnosis: Bladder mass near the right ureteral orifice status post an tegrade stent and percutaneous nephrostomy Conscious Sedation: Versed 1 mg and Fentanyl 50 mcg. The patient's heart rate and pulse oximetry were continuo usly monitored by the interventional radiology nurse. Blood pressure was barry tored at 5 minute intervals. Monitored sedation time: 45 minutes Additiona l Medications: Lidocaine 1% for local anesthesia. Ceftriaxone 1 g intravenous was given at approximately 12:00 PM prior to urological procedure Fluoroscopy time: 4 minutes Dose-area Product: 321.7 cGycm2. Contrast used: 20 cc I sovue-300 Estimated blood loss: Less than 10 cc Specimens: None Implants: 8.5 Barbadian, 24 cm internal ureteral stent; 8 Barbadian percutaneous nephrostomy DISCUSSION: Informed consent was obtained and documented in the medical record after discussion of risks and benefits. The patient was placed in the supine position on the fluoroscopic table. The right flank was prepped an d draped in standard sterile fashion. Preliminary sonographic evaluation of th e right retroperitoneum showed presence of mild hydronephrosis. A suitable per cutaneous approach to a mildly dilated posterior lower pole calyx of the right kidney was identified and 1% lidocaine was infiltrated into the skin and subc utaneous tissues for local anesthesia. Then under continuous sonographic g uidance, a 21-gauge, 15 cm needle was advanced into the posterior lower pole c renetta. A permanent sonographic image was stored in the medical record. Return o f clear urine followed by injection of dilute contrast material confirmed appr opriate positioning. A 0.0 1 8-in. wire was then advanced through the needle a nd into the proximal ureter. The needle was exchanged for a 6 Barbadian coaxial s sandra which was advanced to the level of the renal pelvis. The wire was remove d and a 0.0 3 5-in. Roadrunner wire and 4 Barbadian hydrophilic catheter were adv anced through the sheath, down the ureter, and into the urinary bladder, with appropriate positioning confirmed by injection of dilute contrast material. A 0.0 3 5-in. Amplatz wire was then advanced through the catheter and coiled within the urinary bladder. The catheter and sheath were removed. An 8.5 Carlos nch, 24 cm interloop length ureteral stent was then advanced over the wire. Th e cannula of the stent was removed and the distal locking loop was formed with in the urinary bladder. The wire was then removed, with the proximal locking l oop formed within the renal pelvis. The wire was reintroduced through the depl oyment catheter and coiled within the renal pelvis. The deployment catheter wa s then exchanged over the wire for an 8 Barbadian nephrostomy catheter. The wire was removed and the locking loop of the nephrostomy was formed in the renal pe lvis along side the proximal locking loop of the ureteral stent. Injection of dilute contrast material confirmed appropriate positioning. The catheter w as flushed copiously with sterile saline, secured to the skin with monofilamen t nylon suture, and connected to gravity drainage. A sterile dressing was appl ied. The patient tolerated the procedure well without immediate consultation. FINDINGS: 1. Mild right hydroureteronephrosis. 2. No evide nce of contrast extravasation along the distal right ureter or ureterovesical junction. IMPRESSION: Successful percutaneous placement of an antegrad e right-sided double-J ureteral stent (8.5 Barbadian, 24 cm interloop length) cou pled with an 8 Barbadian percutaneous nephrostomy catheter. Signed by: Dr Elizabeth Grissom M.D. on 12/07/2018 9:05 PM Dictated By: HELEN GRISSOM MD 1440 Transcribed By: MANSOOR BORJAS on 12/18/18 1440 COPY TO: NGOC NAVARRETE MD IR CONSULT 2018-12-07 20:57:00 [address] [address] Patient Name: BRIAN COLBERT MR #: [id number] : 1935 Age/Sex: 83/M Req #: [id number] Adm Physician: ABNER DEL CASTILLO DO Ordered by: NGOC NAVARRETE MD Report #: [id number] Location: MED/SURG Room/Bed: [facility] Procedure: [id number] DX /IR CONSULT Exam Date: Exam Time: REPORT STATUS: Signed Date and Time: 12/07/2018 Procedure: Right percutaneous nephrostogram with antegrade ureteral stent placement and nephrostomy catheter placement extractor operator: Dr. Grissom Pre-operative diagnosis: Bladder mass near the right ureteral orifice status post biopsy/excision with failed retrograde stent Post-operative diagnosis: Bladder mass near the right ureteral orifice status post antegrade stent and p ercutaneous nephrostomy Conscious Sedation: Versed 1 mg and Fentanyl 50 mcg . The patient's heart rate and pulse oximetry were continuously monitored by oziel powers interventional radiology nurse. Blood pressure was monitored at 5 minute intervals. Monitored sedation time: 45 minutes Additional Medications: Lido herbert 1% for local anesthesia. Ceftriaxone 1 g intravenous was given at approx imately 12:00 PM prior to urological procedure Fluoroscopy time: 4 minutes Dose-area Product: 321.7 cGycm2. Contrast used: 20 cc Isovue-300 Estimat ed blood loss: Less than 10 cc Specimens: None Implants: 8.5 Barbadian, 24 cm i nternal ureteral stent; 8 Barbadian percutaneous nephrostomy DISCUSSION: Informed consent was obtained and documented in the medical record after dis cussion of risks and benefits. The patient was placed in the supine positio n on the fluoroscopic table. The right flank was prepped and draped in standar d sterile fashion. Preliminary sonographic evaluation of the right retroperito neum showed presence of mild hydronephrosis. A suitable percutaneous approach to a mildly dilated posterior lower pole calyx of the right kidney was identif ied and 1% lidocaine was infiltrated into the skin and subcutaneous tissues fo r local anesthesia. Then under continuous sonographic guidance, a 21-gauge , 15 cm needle was advanced into the posterior lower pole calyx. A permanent s onographic image was stored in the medical record. Return of clear urine follo wed by injection of dilute contrast material confirmed appropriate positioning . A 0.0 1 8-in. wire was then advanced through the needle and into the proxima l ureter. The needle was exchanged for a 6 Barbadian coaxial sheath which was adv anced to the level of the renal pelvis. The wire was removed and a 0.0 3 5-in. Roadrunner wire and 4 Barbadian hydrophilic catheter were advanced through the s sandra, down the ureter, and into the urinary bladder, with appropriate positio dave confirmed by injection of dilute contrast material. A 0.0 3 5-in. Am kurt wire was then advanced through the catheter and coiled within the urinar y bladder. The catheter and sheath were removed. An 8.5 Barbadian, 24 cm interloo p length ureteral stent was then advanced over the wire. The cannula of the st ent was removed and the distal locking loop was formed within the urinary blad trish. The wire was then removed, with the proximal locking loop formed within t he renal pelvis. The wire was reintroduced through the deployment catheter and coiled within the renal pelvis. The deployment catheter was then exchanged ov er the wire for an 8 Barbadian nephrostomy catheter. The wire was removed and the locking loop of the nephrostomy was formed in the renal pelvis along side the proximal locking loop of the ureteral stent. Injection of dilute contrast mat erial confirmed appropriate positioning. The catheter was flushed copiousl y with sterile saline, secured to the skin with monofilament nylon suture, and connected to gravity drainage. A sterile dressing was applied. The patient to lerated the procedure well without immediate consultation. FINDINGS: 1. Mild right hydroureteronephrosis. 2. No evidence of contrast ext ravasation along the distal right ureter or ureterovesical junction. I MPRESSION: Successful percutaneous placement of an antegrade right-sided doubl e-J ureteral stent (8.5 Barbadian, 24 cm interloop length) coupled with an 8 Fren ch percutaneous nephrostomy catheter. Signed by: Kavita Torres on 12/07/2018 9:05 PM Dictated By: HELEN GRISSOM MD Electronically Sig coby By: HELEN GRISSOM MD on 12/18/18 1440 Transcribed By: ELKE on 12/18/18 1 440 COPY TO: NGOC NAVARRETE MD [facility] URETER STNT PERC NEW w [place] 2018-12-07 20:57:00 [place] [address] Patient Name: BRIAN COLBERT MR #: [id number] : 1935 Age/Sex: 83/M Req #: [id number] Adm Physician: ABNER DEL CASTILLO DO Ordered by: NGOC NAVARERTE MD Report #: [id number] Location: MED/SURG Room/Bed: [facility] Procedure: [id number] IR /PLMT URETER STNT PERC NEW w [place] Exam Date: Exam Evert e: REPORT STATUS: Signed Date a nd Time: 12/07/2018 Procedure: Right percutaneous nephrostogram with antegra de ureteral stent placement and nephrostomy catheter placement Primary op erator: Dr. Grissom Pre-operative diagnosis: Bladder mass near the right uret eral orifice status post biopsy/excision with failed retrograde stent Post-o perative diagnosis: Bladder mass near the right ureteral orifice status post a ntegrade stent and percutaneous nephrostomy Conscious Sedation: Versed 1 mg and Fentanyl 50 mcg. The patient's heart rate and pulse oximetry were continu ously monitored by the interventional radiology nurse. Blood pressure was mon itored at 5 minute intervals. Monitored sedation time: 45 minutes Addition al Medications: Lidocaine 1% for local anesthesia. Ceftriaxone 1 g intravenous was given at approximately 12:00 PM prior to urological procedure Fluoroscopy time: 4 minutes Dose-area Product: 321.7 cGycm2. Contrast used: 20 cc Isovue-300 Estimated blood loss: Less than 10 cc Specimens: None Implants: 8.5 Barbadian, 24 cm internal ureteral stent; 8 Barbadian percutaneous nephrostomy DISCUSSION: Informed consent was obtained and documented in the medica l record after discussion of risks and benefits. The patient was placed i n the supine position on the fluoroscopic table. The right flank was prepped a nd draped in standard sterile fashion. Preliminary sonographic evaluation of t he right retroperitoneum showed presence of mild hydronephrosis. A suitable pe rcutaneous approach to a mildly dilated posterior lower pole calyx of the righ t kidney was identified and 1% lidocaine was infiltrated into the skin and sub cutaneous tissues for local anesthesia. Then under continuous sonographic guidance, a 21-gauge, 15 cm needle was advanced into the posterior lower pole calyx. A permanent sonographic image was stored in the medical record. Return of clear urine followed by injection of dilute contrast material confirmed iván ropriate positioning. A 0.0 1 8-in. wire was then advanced through the needle and into the proximal ureter. The needle was exchanged for a 6 Barbadian coaxial sheath which was advanced to the level of the renal pelvis. The wire was remov ed and a 0.0 3 5-in. Roadrunner wire and 4 Barbadian hydrophilic catheter were ad vanced through the sheath, down the ureter, and into the urinary bladder, with appropriate positioning confirmed by injection of dilute contrast material. A 0.0 3 5-in. Amplatz wire was then advanced through the catheter and coiled within the urinary bladder. The catheter and sheath were removed. An 8.5 Fr ench, 24 cm interloop length ureteral stent was then advanced over the wire. T he cannula of the stent was removed and the distal locking loop was formed wit hin the urinary bladder. The wire was then removed, with the proximal locking loop formed within the renal pelvis. The wire was reintroduced through the dep loyment catheter and coiled within the renal pelvis. The deployment catheter w as then exchanged over the wire for an 8 Barbadian nephrostomy catheter. The wire was removed and the locking loop of the nephrostomy was formed in the renal p rachna along side the proximal locking loop of the ureteral stent. Injection of dilute contrast material confirmed appropriate positioning. The catheter was flushed copiously with sterile saline, secured to the skin with monofilame nt nylon suture, and connected to gravity drainage. A sterile dressing was iván lied. The patient tolerated the procedure well without immediate consultation. FINDINGS: 1. Mild right hydroureteronephrosis. 2. No evid ence of contrast extravasation along the distal right ureter or ureterovesical junction. IMPRESSION: Successful percutaneous placement of an antegra de right-sided double-J ureteral stent (8.5 Barbadian, 24 cm interloop length) co upled with an 8 Barbadian percutaneous nephrostomy catheter. Signed by: Fatimah Grsisom M.D. on 12/07/2018 9:05 PM Dictated By: HELEN GRISSOM MD 144 Transcribed By: Rayo BRAUN on 12/18/18 1440 COPY TO: NGOC NAVARRETE MD Eosinophils % (Manual)2018-12-07 11:24:00* Test Item Value Reference Range Interpretation Comments Eosinophils % (Manual) (test code = 714-6) 3 0-7 [facility]2019-[facility] 11:24:00* Test Item Value Reference Range Interpretation Comments Ovalocytes (test code = 774-0) FEW [facility] HospitalElliptocytes2019-11-01 11:24:00* Test Item Value Reference Range Interpretation Comments Elliptocytes (test code = 90306-9) SLIGHT [facility]IS [id number] 10:43:00 [facility] [address] [place] [address] Patient Name: BRIAN COLBERT MR #: [id number] : 02/1935 Age/Sex: 83/M Req #: [id number] Adm Physician: ANNIA DEL CASTILLO MD Ordered by: ABNER DEL CASTILLO DO Report #: [id number] Location: [facility] Room/Bed: [place] [address] Procedure: [id number] CT/CT ABDOMEN/PELVIS W Exam Date: 12/07/18 Exam Time : 1000 REPORT STATUS: Signed EXA M: CT Abdomen and Pelvis WITH intravenous contrast INDICATION: Bladder ma ss COMPARISON: CT abdomen and pelvis hematuria protocol of 12/02/2018 TECHNIQUE: Abdomen and pelvis were scanned utilizing a multidetector helical s canner from the lung base to the pubic symphysis after administration of IV co ntrast. Coronal and sagittal reformations were obtained. Routine protocol was performed. Scan was performed during portal venous phase. IV CONTRAST: 100mL of Isovue 370 ORAL CONTRAST: Water RADIATION DOSE: Total DLP: 3 48.2 mGy*cm Dose modulation, iterative reconstruction, and/or weight based adjustment of the mA/kV was utilized to reduce the radiation dose to as low as reasonably achievable. FINDINGS: LOWER THORAX: Mild scattered coronar y artery atherosclerotic calcifications. Bibasilar dependent subsegmental atel ectasis. HEPATOBILIARY: Diffuse hepatic steatosis. No focal liver lesion. N o biliary ductal dilation. Status post cholecystectomy. SPLEEN: No spleno megaly. PANCREAS: No focal masses or ductal dilatation. ADRENALS: No a drenal nodules. KIDNEYS/URETERS: No hydronephrosis, stones, or solid mass lesi ons. PELVIC ORGANS/BLADDER: Unchanged approximately 2.5 x 2.5 x 2.4 cm soft ti ssue mass at the right posterior bladder in the vicinity of the right ureterov esical junction. Prostatomegaly to 5.0 cm. PERITONEUM / RETROPERITONEUM: No free air or fluid. LYMPH NODES: No lymphadenopathy. VESSELS: Diffuse athe rosclerotic calcifications of the nonaneurysmal abdominal aorta and major bran ches. Ectatic bilateral common iliac arteries. GI TRACT: No abnormal bowel thickening. No bowel obstruction. Normal appendix. BONES AND SOFT TISSUES: No acute osseous injury. No suspicious lytic or blastic lesions. Degenerative changes of the visualized spine. Mild diffuse osteopenia. IMPRESSION: Re demonstration of right posterior bladder mass concerning for malignancy. Recom mend urology consultation for further evaluation. Diffuse hepatic steatosis . Prostatomegaly Signed by: Carroll Samaniego MD on 12/07/2018 11:28 AM Dictated By: CARROLL SAMANIEGO MD 1128 COPY TO: ABNER DEL CASTILLO DO Prothrombin [id number] 08:56:00* Test Item Value Reference Range Interpretation Comments Prothrombin Time (test code = 5902-2) 13.7 11.9-14.5 [facility] International Ratio 2018-12-07 08:56:00* Test Item Value Reference Range Interpretation Comments Prothromb Time International Ratio (test code = 6301-6) 1.00 Oral Anticoagulant Therapy INR Values:1. Low Intensity Therapy 1.5 - 2.02 . Moderate Intensity Therapy 2.0 - 3.03. High Intensity Therapy(1) 2.5 - 3. 54. High Intensity Therapy(2) 3.0 - 4.05. Panic Value INR > 5.0 [facility] [id number] 08:53:00* Test Item Value Reference Range Interpretation Comments Urine WBC (test code = 5821-4) 11-20 0-5 H [facility] [id number] 08:53:00* Test Item Value Reference Range Interpretation Comments Urine RBC (test code = 06701-4) >50 0-5 H [facility] Oepxeitm2507-33-29 08:53:00* Test Item Value Reference Range Interpretation Comments Urine Bacteria (test code = 62217-5) MANY NONE [facility] Epithelial Mixaw3047-68-79 08:53:00 * Test Item Value Reference Range Interpretation Comments Urine Epithelial Cells (test code = 21272-7) MODERATE NONE [facility] Amorphous Mskobwvz3495-15-26 08:53:00* Test Item Value Reference Range Interpretation Comments Urine Amorphous Sediment (test code = 8246-1) MODERATE FEW H [facility] Lueyd4970-04-56 08:49:00* Test Item Value Reference Range Interpretation Comments Urine Color (test code = 5778-6) RED YELLOW [facility] Wzjttrl7574-86-97 08:49:00* Test Item Value Reference Range Interpretation Comments Urine Clarity (test code = 32656-1) TURBID CLEAR [facility] Specific Oiurwsm1864-14-30 08:49:00 * Test Item Value Reference Range Interpretation Comments Urine Specific [place] (test code = 5811-5) 1.020 1.010-1.02 5 [facility] [id number] 08:49:00* Test Item Value Reference Range Interpretation Comments Urine pH (test code = 00675-5) 5 5-7 [facility] Leukocyte Qxlivrfb1067-98-72 08:49:00* Test Item Value Reference Range Interpretation Comments Urine Leukocyte Esterase (test code = 02247-8) TRACE NEGATIV E [facility] Wulgdnd6956-16-12 08:49:00* Test Item Value Reference Range Interpretation Comments Urine Nitrite (test code = 24515-8) POSITIVE NEGATIVE [facility] Jpgymyn6251-87-12 08:49:00* Test Item Value Reference Range Interpretation Comments Urine Protein (test code = 35930-8) 2+ NEGATIVE H [facility] Glucose (UA)2018-12-07 08:49:00* Test Item Value Reference Range Interpretation Comments Urine Glucose (UA) (test code = 90613-9) NEGATIVE NEGATIVE [facility] Ewitanp9330-00-50 08:49:00* Test Item Value Reference Range Interpretation Comments Urine Ketones (test code = 40363-9) NEGATIVE NEGATIVE [facility] Noeevhfwfcbl7584-90-00 08:49:00* Test Item Value Reference Range Interpretation Comments Urine Urobilinogen (test code = 60047-8) 1 0.2-1 [facility] Dpenajlnz5930-79-06 08:49:00* Test Item Value Reference Range Interpretation Comments Urine Bilirubin (test code = 1977-8) NEGATIVE NEGATIVE [facility] Fagxl9310-28-01 08:49:00* Test Item Value Reference Range Interpretation Comments Urine Blood (test code = 99539-9) 3+ NEGATIVE [facility]PELVIS [id number] 00:24:00 [facility] [address] [place] [address] Patient Name: BRIAN COLBERT MR #: [id number] : 02/1935 Age/Sex: 83/M Req #: [id number] Adm Physician: Ordered by: HERMINIO ARRIAGA MD Report #: [id number] Location: ER Room/Bed: Procedure: 1027-[address]/CT ABDOMEN/PELVIS WOW Exam Date: 12/02/18 Deyanira grant Time: 2329 REPORT STATUS: Signed EXAM: CT Abdomen and Pelvis WITHOUT and WITH contrast INDICATION: painles s hematuria COMPARISON: None. TECHNIQUE: Abdomen and pelvis were scanned u tilizing a multidetector helical scanner from the lung base to the pubic symph ysis before and after administration of IV contrast. Coronal and sagittal refo rmations were obtained. CT Urogram protocol was performed. Scan was performed pre- and nephrogenic/excretory phase with a 10 minute split bolus in prone pos ition. Excretory phase CT was repeated with patient in prone position to delin eate anterior bladder wall. IV CONTRAST: 100 mL of Isovue 370 OR AL CONTRAST: Water COMPLICATIONS: None RADIATION DOSE: Total DLP: 1349 mGy*cm Estimated effective dose: (DLP x 0.015 x size factor) mSv CTDIvol has been reviewed. It is below the limits set by the Radiation Protocol Committee (RPC). Dose modulation, iterative reconstr uction, and/or weight based adjustment of the mA/kV was utilized to reduce the radiation dose to as low as reasonably achievable. FINDINGS: LINES and TUBES: None. LOWER THORAX: Mild cardiomegaly with coronary artery naomi cifications/stones. Mild bronchial wall thickening in the lower lungs with nicolasa e mucus plugging. HEPATOBILIARY: No focal hepatic lesions. No biliary ductal dilation. GALLBLADDER: Cholecystectomy clips in the gallbladder fos sa. SPLEEN: No splenomegaly. PANCREAS: No focal masses or ductal d ilatation. ADRENALS: No adrenal nodules KIDNEYS/URETERS: Mild bi lateral perinephric fat stranding can be seen in the setting of renal insuffic iency or senescence. Kidneys enhance symmetrically. No hydronephrosis. Small bilateral simple renal cysts. No solid mass lesions. No stones. GI TRACT : No abnormal distention, wall thickening, or evidence of bowel obstruction. Appendix is normal. PELVIC ORGANS/BLADDER: A 3.2 x 2 x 2.4 cm lobul ar endoluminal mucosal based nonmobile mass arising from/adherent to the right posterior urinary bladder wall. No obvious perivesicular extension. Enlarged lobular prostate measures up to 5.1 cm and indents the bladder floor. Fatty s permatic cords. LYMPH NODES: No lymphadenopathy. VESSELS: There is mod erate atherosclerotic disease in the aorta and major arterial branches. P ERITONEUM / RETROPERITONEUM: No free air or fluid. BONES: Right partial chinchilla inectomy at L5. Advanced degenerative changes in the spine with the anchylosis of the lower lumbar spine facets. Scalloped well-circumscribed sclerotic irre gularity of the left iliac consistent with bone harvesting donor site SOF T TISSUES: Unremarkable. IMPRESSION: A 3.2 cm nonmobile n odular mucosal-based endoluminal mass along the right posterior bladder wall i s concerning for malignancy. Recommend urology referral. Enlarged prostate i ndents the bladder floor. Findings in the lower lungs may reflect bronchitis. Signed by: Emiliano Duarte DO on 12/03/2018 12:45 AM Dictated By: PETRA DUARTE DO 004 5 Transcribed By: ELKE on 12/03/185 COPY TO: HERMINIO ARRIAGA MD Sodium Qyvvb8655-68-25 21:57:00* Test Item Value Reference Range Interpretation Comments Sodium Level (test code = 2951-2) 136 136-145 [facility] HospitalPotassium Vkcwp8944-81-27 21:57:00* Test Item Value Reference Range Interpretation Comments Potassium Level (test code = 2823-3) 3.9 3.5-5.1 [facility] HospitalChloride Wmpmq6590-69-57 21:57:00* Test Item Value Reference Range Interpretation Comments Chloride Level (test code = 2075-0) 102 98-107 [facility] HospitalCarbon Dioxide Xpvfz6327-15-32 21:57:00* Test Item Value Reference Range Interpretation Comments Carbon Dioxide Level (test code = 8-9) 23 22-29 [facility] HospitalAnion Tvp1746-80-59 21:57:00* Test Item Value Reference Range Interpretation Comments Anion Gap (test code = 28849-0) 14.9 8-16 [facility] HospitalBlood Urea Wzgtdwyt1564-42-43 21:57:00* Test Item Value Reference Range Interpretation Comments Blood Urea Nitrogen (test code = 3094-0) 37 7-26 H [facility] HospitalCreatinine2019-10-27 21:57:00* Test Item Value Reference Range Interpretation Comments Creatinine (test code = 2160-0) 1.64 0.72-1.25 H [facility] HospitalBUN/Creatinine Ntqhn4680-00-87 21:57:00* Test Item Value Reference Range Interpretation Comments BUN/Creatinine Ratio (test code = 3097-3) 23 6-25 [facility] HospitalEstimat Glomerular Filtration Rate 2018-12-02 21:57:00* Test Item Value Reference Range Interpretation Comments Estimat Glomerular Filtration Rate (test code = 449203136) 40 >60 L Ranges were taken from the National Kidney Disease Education Program and the [facility] literature.Reference ranges:60 or greater: Jmnzyw35-44 ( for 3 consecutive months): Chronic kidney disease 15 or less: Kidney failureMemorial Hermann Southwest HospitalGlucose Oyaxy8589-69-96 21:57:00* Test Item Value Reference Range Interpretation Comments Glucose Level (test code = FDG3343) 165 74-118 H [facility] HospitalCalcium Hwncw8912-64-86 21:57:00* Test Item Value Reference Range Interpretation Comments Calcium Level (test code = 51407-5) 8.4 8.4-10.2 [facility] HospitalTotal Tfysufwey0210-05-40 21:57:00* Test Item Value Reference Range Interpretation Comments Total Bilirubin (test code = 1975-2) 0.3 0.2-1.2 [facility] HospitalAspartate Amino Transf (AST/SGOT) 2018-12-02 21:57:00* Test Item Value Reference Range Interpretation Comments Aspartate Amino Transf (AST/SGOT) (test code = Aspartate Amino Transf (AST/SGOT)) 16 5-34 [facility] HospitalAlanine Aminotransferase (ALT/SGPT) 2018-12-02 21:57:00* Test Item Value Reference Range Interpretation Comments Alanine Aminotransferase (ALT/SGPT) (test code = 1742-6) 11 0-55 [facility] HospitalTotal Grsmnge1318-84-36 21:57:00* Test Item Value Reference Range Interpretation Comments Total Protein (test code = 2885-2) 6.3 6.5-8.1 L [facility] HospitalAlbumin2019-10-27 21:57:00* Test Item Value Reference Range Interpretation Comments Albumin (test code = 1751-7) 3.8 3.5-5.0 [facility] HospitalGlobulin2019-10-27 21:57:00* Test Item Value Reference Range Interpretation Comments Globulin (test code = 79078-2) 2.5 2.3-3.5 [facility] HospitalAlbumin/Globulin Sdbbi7657-32-58 21:57:00 * Test Item Value Reference Range Interpretation Comments Albumin/Globulin Ratio (test code = 1759-0) 1.5 0.8-2.0 [facility] HospitalAlkaline Qvltslmtblk3846-51-03 21:57:00* Test Item Value Reference Range Interpretation Comments Alkaline Phosphatase (test code = 6768-6) 33 40-150 L [facility] HospitalTotal Tyeuemcyx8601-64-49 21:57:00* Test Item Value Reference Range Interpretation Comments Total Bilirubin (test code = 1975-2) 0.3 0.2-1.2 [facility] HospitalAspartate Amino Transf (AST/SGOT) 2018-12-02 21:57:00* Test Item Value Reference Range Interpretation Comments Aspartate Amino Transf (AST/SGOT) (test code = Aspartate Amino Transf (AST/SGOT)) 16 5-34 [facility] HospitalAlanine Aminotransferase (ALT/SGPT) 2018-12-02 21:57:00* Test Item Value Reference Range Interpretation Comments Alanine Aminotransferase (ALT/SGPT) (test code = 1742-6) 11 0-55 [facility] HospitalTotal Vzutnow7555-77-90 21:57:00* Test Item Value Reference Range Interpretation Comments Total Protein (test code = 2885-2) 6.3 6.5-8.1 L [facility] HospitalAlbumin2019-10-27 21:57:00* Test Item Value Reference Range Interpretation Comments Albumin (test code = 1751-7) 3.8 3.5-5.0 [facility] HospitalGlobulin2019-10-27 21:57:00* Test Item Value Reference Range Interpretation Comments Globulin (test code = 36412-3) 2.5 2.3-3.5 [facility] HospitalAlbumin/Globulin Stkyd4278-15-86 21:57:00 * Test Item Value Reference Range Interpretation Comments Albumin/Globulin Ratio (test code = 1759-0) 1.5 0.8-2.0 [facility] HospitalAlkaline Lvwnbcgssde1227-46-03 21:57:00* Test Item Value Reference Range Interpretation Comments Alkaline Phosphatase (test code = 6768-6) 33 40-150 L [facility] HospitalUrine HQI2467-31-12 21:52:00* Test Item Value Reference Range Interpretation Comments Urine WBC (test code = 5821-4) 0-5 0-5 [facility] HospitalUrine [id number] 21:52:00* Test Item Value Reference Range Interpretation Comments Urine RBC (test code = 23954-1) >50 0-5 H [facility] HospitalUrine Zpihszgp0417-39-20 21:52:00* Test Item Value Reference Range Interpretation Comments Urine Bacteria (test code = 26319-8) FEW NONE [facility] HospitalUrine Epithelial Yuyyq1297-04-91 21:52:00 * Test Item Value Reference Range Interpretation Comments Urine Epithelial Cells (test code = 18051-9) RARE NONE [facility] HospitalWhite Blood [id number] 21:46:00* Test Item Value Reference Range Interpretation Comments White Blood Count (test code = 6690-2) 5.27 4.8-10.8 [facility] Tidsy0328-89-97 21:46:00* Test Item Value Reference Range Interpretation Comments Red Blood Count (test code = 789-8) 2.80 4.3-5.7 L [facility]Hemoglobin2019-10-27 21:46:00* Test Item Value Reference Range Interpretation Comments Hemoglobin (test code = 24984-8) 8.7 14.0-18.0 L [facility]Hematocrit2019-10-27 21:46:00* Test Item Value Reference Range Interpretation Comments Hematocrit (test code = 4544-3) 26.0 38.2-49.6 L [facility] HospitalMean Corpuscular Nslghr0447-78-68 21:46:00* Test Item Value Reference Range Interpretation Comments Mean Corpuscular Volume (test code = 787-2) 92.9 81-99 [facility] Corp[facility] Xgcbjkxtrn1508-01-80 21:46:00* Test Item Value Reference Range Interpretation Comments Mean Corpuscular Hemoglobin (test code = 785-6) 31.1 28-32 [facility]Mean Corp[facility] Hemoglobin Concent 2018-12-02 21:46:00* Test Item Value Reference Range Interpretation Comments Mean Corpuscular Hemoglobin Concent (test code = 786-4) 33.5 31-35 [facility]Red Cell Distribution Fsmzj8523-52-96 21:46:00* Test Item Value Reference Range Interpretation Comments Red Cell Distribution Width (test code = 82880-8) 13.6 11.7 -14.4 [facility] HospitalPlatelet Qasrl3256-35-48 21:46:00* Test Item Value Reference Range Interpretation Comments Platelet Count (test code = 777-3) 117 140-360 L [facility] HospitalNeutrophils (%) (Auto)2018-12-02 21:46:00 * Test Item Value Reference Range Interpretation Comments Neutrophils (%) (Auto) (test code = 98593-6) 66.5 38.7-80.0 [facility] HospitalLymphocytes (%) (Auto)2018-12-02 21:46:00 * Test Item Value Reference Range Interpretation Comments Lymphocytes (%) (Auto) (test code = 736-9) 16.1 18.0-39.1 L [facility] HospitalMonocytes (%) (Auto)2018-12-02 21:46:00* Test Item Value Reference Range Interpretation Comments Monocytes (%) (Auto) (test code = 5905-5) 15.7 4.4-11.3 H [facility] HospitalEosinophils (%) (Auto)2018-12-02 21:46:00 * Test Item Value Reference Range Interpretation Comments Eosinophils (%) (Auto) (test code = 713-8) 0.4 0.0-6.0 [facility] HospitalBasophils (%) (Auto)2018-12-02 21:46:00* Test Item Value Reference Range Interpretation Comments Basophils (%) (Auto) (test code = 706-2) 0.4 0.0-1.0 [facility] HospitalIM GRANULOCYTES %2018-12-02 21:46:00* Test Item Value Reference Range Interpretation Comments IM GRANULOCYTES % (test code = IM GRANULOCYTES %) 0.9 0.0- 1.0 [facility] HospitalNeutrophils # (Auto)2018-12-02 21:46:00* Test Item Value Reference Range Interpretation Comments Neutrophils # (Auto) (test code = 751-8) 3.5 2.1-6.9 [facility] HospitalLymphocytes # (Auto)2018-12-02 21:46:00* Test Item Value Reference Range Interpretation Comments Lymphocytes # (Auto) (test code = 77951-0) 0.9 1.0-3.2 L [facility] HospitalMonocytes # (Auto)2018-12-02 21:46:00* Test Item Value Reference Range Interpretation Comments Monocytes # (Auto) (test code = 742-7) 0.8 0.2-0.8 [facility] HospitalEosinophils # (Auto)2018-12-02 21:46:00* Test Item Value Reference Range Interpretation Comments Eosinophils # (Auto) (test code = 711-2) 0.0 0.0-0.4 [facility] HospitalBasophils # (Auto)2018-12-02 21:46:00* Test Item Value Reference Range Interpretation Comments Basophils # (Auto) (test code = 704-7) 0.0 0.0-0.1 [facility] HospitalAbsolute Immature Granulocyte (auto 2018-12-02 21:46:00* Test Item Value Reference Range Interpretation Comments Absolute Immature Granulocyte (auto (nic t code = Absolute Immature Granulocyte (auto) 0.05 0-0.1 [facility] HospitalUrine Kshnf2024-99-56 21:45:00* Test Item Value Reference Range Interpretation Comments Urine Color (test code = 5778-6) RED YELLOW H [facility] HospitalUrine Zorytps2004-74-59 21:45:00* Test Item Value Reference Range Interpretation Comments Urine Clarity (test code = 86140-5) CLOUDY CLEAR H [facility] HospitalUrine Specific Wdgsjbo3232-08-13 21:45:00 * Test Item Value Reference Range Interpretation Comments Urine Specific [place] (test code = 5811-5) 1.010 1.010-1.02 5 [facility] HospitalUrine jR1455-65-22 21:45:00* Test Item Value Reference Range Interpretation Comments Urine pH (test code = 40279-5) 6 5-7 [facility] Leukocyte Jgnochgh3133-70-36 21:45:00* Test Item Value Reference Range Interpretation Comments Urine Leukocyte Esterase (test code = 12371-8) TRACE NEGATIV E H [facility] HospitalUrine Pyjrtlv3820-17-93 21:45:00* Test Item Value Reference Range Interpretation Comments Urine Nitrite (test code = 98913-7) NEGATIVE NEGATIVE [facility] HospitalU[facility] Trdwvoe5225-60-25 21:45:00* Test Item Value Reference Range Interpretation Comments Urine Protein (test code = 88181-0) 2+ NEGATIVE H [facility] HospitalUrine Glucose (UA)2018-12-02 21:45:00* Test Item Value Reference Range Interpretation Comments Urine Glucose (UA) (test code = 45540-5) NEGATIVE NEGATIVE [facility] HospitalU[facility] Eslfpqm0417-43-88 21:45:00* Test Item Value Reference Range Interpretation Comments Urine Ketones (test code = 63429-7) NEGATIVE NEGATIVE [facility] HospitalU[facility] Llrxbcueofgm9213-36-47 21:45:00* Test Item Value Reference Range Interpretation Comments Urine Urobilinogen (test code = 14458-5) 0.2 0.2-1 [facility] HospitalU[facility] Wogofefco0714-76-73 21:45:00* Test Item Value Reference Range Interpretation Comments Urine Bilirubin (test code = 1977-8) NEGATIVE NEGATIVE [facility] HospitalU[facility] Qyael1920-78-40 21:45:00* Test Item Value Reference Range Interpretation Comments Urine Blood (test code = 33077-0) 3+ NEGATIVE [facility] HospitalHEMATOLOGY2018-10-11 15:18:0011.7[facility] WrkjhckTYTILNXRGX9976-90-54 15:18:0014.2[facility] RioiyprJKVYKQDAZK7730-46-42 15:18:0034.5[facility] OhxbsuuGSVCFFKMJO3392-71-93 15:18:004.9[facility] [place] LQQRXZGBAN7650-49-11 15:18:0010.5[facility] EymtctqWYPBHCTFQY8066-33-81 15:18:00 3.29[facility] YxigqniLUWAXNLMYQ2064-18-78 15:18:0030.4[facility] 2017-11-16 15:18:0092.4[facility] JckffalIVHLKTWPDD9237-06-97 15:18:00* Test Item Value Reference Range Interpretation Comments MCH (test code = MCH) 31.9 pg 27.0-31.0 [facility] UpqezcuSSMASJLCKF2223-58-83 15:18:46278Mqtkkyve HermannHEMATOLOGY 2017-11-16 15:18:001+ *ABN*(11/16/17 10:18 AM)[facility] HermannHEMATOLOGY 2017-11-16 15:18:002.0[facility] JforyyoZMRAVUQWBM2253-77-26 15:18:0031.0[facility] ZjjhkelUTWJLLQYWT0370-86-97 15:18:000.0[facility] TsrqomcBPDZMOMXVK7766-44-56 15:18:001.0[facility] QvpvzbmSWTTFYKXCZ1445-66-55 15:18:001.0[facility] YKZFKLUVJS5966-74-17 15:18:00Normal (11/16/17 10:18 AM)[facility] GZNUVCDVJG0879-27-66 15:18:000.0[facility] VhxahzjSYNNENVXDU2738-51-44 15:18:000.0 [facility] UqfpfnuJVQVSULULY0180-61-59 15:18:001.5[facility]annHEMATOLOGY 2017-11-16 15:18:000.0[facility] NtkhxtyOXECQYRRBG9647-00-77 15:18:000.0[facility] BtplqvoQLKWLHQYPS0150-01-13 15:18:0065.0[facility] CjjwfgvFNTWEOUEQR8660-80-95 15:18:001+ *ABN*(11/16/17 10:18 AM)[facility] LwuwxpsEONVRIRNSJ1960-24-57 15:18:00 * Test Item Value Reference Range Interpretation Comments Tot Cell Ct (test code = Tot Cell Ct) 100 1 [facility] GdyvetfKMMOARVFWL0969-55-85 15:18:00Normal (11/16/17 10:18 AM)[facility] PzkyltxIYRQCXXOYT7402-80-92 15:18:003.3[facility] IrliyocXIYMMOJYJF5916-50-17 15:18:002.1[facility]
--- OUTSIDE RECORDS SUMMARY | 2019-12-28 10:05 | XMS REPORT | Continuity of Care Document ---
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 Role Phone [employer] Unavailable Un available Problems Problem Status Onset Date Classification Date Reported Comments Source Thrombocytopenia, unspecified 11/24/2017 06/05/2018 [facility] ANEMIA Active 11/03/2017 [facility] R19.5 - OTHER FECAL ABNORMALITIES Active 06/08/2017 [facility] Anemia, unspecified 06/05/2018 [facility] Hypertensive chronic kidney disease with stage 1 through stage 4 chronic kidney disease, or unspecified chronic kidney disease 06/05/2018 [facility] Chronic kidney disease, unspecified 06/05/2018 [facility] Type 2 diabetes mellitus with diabetic c hronic kidney disease 06/05/2018 [facility] Alzheimer's disease, unspecified 06/05/2018 [facility] 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 without behavioral disturbance 06/05/2018 [facility] Medications Medication Details Route Status Patient Instructions Ordering Provider Order Date Source Fenofibrate 160 MG Oral Tablet 160 mg = 1 tab, PO, Daily, # 90 tab, 0 Refill(s) Active 11/16/2017 [facility] amLODIPine 10 mg oral tablet 1 0 mg = 1 tab, PO, Daily, # 90 tab, 0 Refill(s) Active 11/16/2017 [facility] glimepiride 2 mg oral tablet 3 mg = 1.5 tab, PO, Breakfast, # 30 tab, 0 Refill(s) Active 11/16/2017 [facility] lovastatin 40 mg oral tablet 4 0 mg = 1 tab, PO, Bedtime, # 30 tab, 0 Refill(s) Active 11/16/2017 [facility] Allergies, Adverse Reactions, Alerts Substance Category Reaction Severity Reaction type Status Date Reported Comments Source No Known Medication Allergies Assertion Drug aller gy [facility] Immunizations No Data Provided for This Section Results Order Name Results Value Reference Range Date Interpretation Comments Source HEMATOLOGY MPV 11.7 7.4 - 10.4 11/16/2017 [facility] HEMATOLOGY RDW 14.2 11.5 - 14.5 11/16/2017 [facility] MCHC 34.5 32.0 - 36.0 11/16/2017 [facility] HEMATOLOGY WBC 4.9 3.7 - 10.4 11/16/2017 [facility] HEMATOLOGY Hgb 10.5 14.0 - 18.0 11/16/2017 [facility] RBC 3.29 4.70 - 6.10 11/16/2017 [facility] HEMATOLOGY Hct 30.4 42.0 - 54.0 11/16/2017 [facility] HEMATOLOGY MCV 92.4 80.0 - 94.0 11/16/2017 [facility] MCH 31.9 27.0 - 31.0 11/16/2017 [facility] Platelet 112 133 - 450 11/16/2017 [facility] Macrocyte 1+ *ABN* (11/16/17 10:18 AM) None Seen 11/16/2017 [facility] Bands 2.0 0.0 - 11.0 11/16/2017 [facility] Lymphocytes 31.0 20.0 - 40.0 11/16/2017 [facility] Monocytes 0.0 2.0 - 12.0 11/16/2017 [facility] Eosinophils 1.0 0.0 - 4.0 11/16/2017 [facility] Basophils 1.0 0.0 - 1.0 11/16/2017 [facility] RBC Morph Opal l (11/16/17 10:18 AM) 11/16/2017 [facility] Atypical Lymphs 0.0 <=0.0 % 11/16/2017 [facility] Monocytes # 0.0 0.0 - 0.8 11/16/2017 [facility] Lymphocytes # 1.5 1.0 - 5.5 11/16/2017 [facility] Eosinophils # 0.0 0.0 - 0.5 11/16/2017 [facility] Basophils # 0.0 0.0 - 0.2 11/16/2017 [facility] Segs 65.0 45.0 - 75.0 11/16/2017 [facility] Anisocyte 1+ *ABN* (11/16/17 10:18 AM) None Seen 11/16/2017 [facility] Tot Cell Ct 100 11/16/2017 [facility] Plt Morph Opal l (11/16/17 10:18 AM) 11/16/2017 [facility] Neutrophils # 3.3 1.5 - 8.1 11/16/2017 [facility] HEMATOLOGY Retic Auto 2.1 0.5 - 1.5 11/16/2017 [facility] REFERENCE LAB RESULTS Misc Lab See Comment 11/16/2017 Result Comment: Reference lab results sc anned in [facility]. Results displayed in [facility]-Outside Lab Documents (Imaged) under date/time results were scanned. Report sent for scanning on 01/01/2018 16:03. [facility] REFERENCE LAB RESULTS Test Name Chrom BM Genoptix 11/16/2017 [facility] Pathology Reports No Data Provided for This Section Diagnostic Reports Report Value Date Source Bone Marrow Biopsy or Trocar (VR) Patient Name: BRIAN COLBERT : 1935; Age: 82 years y/o Male MR: [id number] Study: Bone Marrow Biopsy or Trocar (VR) 11/16/2017 9:42 AM CDT Ordering Physician: Andrei Canales MD Clinical Indication: - thrombocytopenia; Comparison: None Timeout performed prior to the procedure. Total fluoroscopy time 25 seconds. Fluoroscopy dose 8mGy air kerma Patient prepped and draped in a sterile fashion. Lidocaine was used for local anesthesia. Versed and fentanyl used for conscious sedation. Total physician- patient qpvu-xd-bbov sedation monitoring was 5 minutes. 11-gauge needle was advanced left school age program teacher ior iliac crest marrow space. Hard copy fluoroscopic image recorded in PACS. 10 mL of marrow were aspirated. 11-gauge left iliac bone core biopsy obtained. Procedure well-tolerated clinically. 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 And Boring Machine Feeder view is unremarkable without evidence for dilated [...] Comparison Exam: CT scan 03/01/2007 Discussion: On art studio teacher view, there are no dilated loops of [...] Date Comments Source Height 172.72 cm 11/16/2017 [facility] BMI Calculated 25.6 11/16/2017 [facility] Weight 76.364 11/16/2017 [facility] Encounters Location Location Details Encounter Type Encounter Number Reason For Visit Attending Provider ADM Date DC Date Status Source [facility] [place] [facility] [id number] Devang Segovia 06/23/2017 06/24/2017 SHAZIA [place] [facility] [place] [facility] [id number] Devang Vallecathalia 07/11/2017 07/12/2017 SHAZIA [place] [facility] Outpatient [id number] Andrei Canales 11/16/2017 11/17/2017 [facility] Procedures Procedure Code Date Perfomer Comments Source Bone marrow biopsy [id number] 02/06/2010 [facility] Cholecystectomy [id number] 02/06/1969 [facility] Lumbar discectomy<sup>1</sup> [id number] 02/06/1969 lumbar surgery [facility] Assessment and Plan No Data Provided for [...]
--- OUTSIDE RECORDS SUMMARY | 2019-12-28 10:05 | XMS REPORT | Continuity of Care Document ---
Author Author 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 Name Role Phone MD JONES CALLE PCP Catalina MOREIRA Attphys Unavailable NGOC NAVARRETE Attphys Unavailable ANNIA DEL CASTILLO Attphys Unavailable Fernando ARRIAGA Attphys Unavailable Andrei Canales Attphys Devang Segovia Attphys ABNER DEL CASTILLO Admphys Unavailable Payers Payer Name Policy Type Policy Number Effective Date Expiration Date Fernando Santoro [id number] 2018 00:00:00 [facility] Problems Condition Name Condition Details Condition Category Status Onset Date Resolution Date Last Treatment Date Treating Clinician Comments Source ANEMIA ANEM IA Active 11/03/2017 [facility] Active 2017-11-03 00:00:00 2017-11-16 08:39:00 Titus Wan R19.5 - OTHER FECAL ABNORMALITIES R19.5 - OTHER FECAL ABNORMALITIES Active 06/08/2017 [facility] [place] Diagnosis Active 2017-06-08 00:01:00 2017-06-23 08:24:00 Titus Wan Malfunction of Resendiz catheter Problem Active [facility] Anemia, unspecified Anem ia, unspecified 06/05/2018 [facility] Problem 2018-06-05 12:09:58 Me agustin Wan Hypertensive chronic kidney disease with stage 1 through stage 4 chronic kidney disease, or unspecified chronic kidney disease Hypertensive chronic kidney disease with stage 1 through stage 4 chronic kidney disease, or unspecified chronic kidney disease 06/05/2018 [facility] Problem 2018-06-05 12:09:58 Mal[place]ish[place] brown [place] Chronic kidney disease, unspecified Chronic kidney disease, unspecified 06/05/2018 [facility] Problem 2018-06-05 12:09:58 Titus Wan Type 2 diabetes mellitus with diabetic chronic kidney disease Type 2 diabetes mellitus with diabetic chronic kidney disease 06/05/2018 [facility] Problem 2018-06-05 12:09:58 agustin Wan Alzheimer's disease, unspecified Alzheimer's disease, unspecified 06/05/2018 [facility] Problem 2018-06-05 1 2:09:58 Titus Wan 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sewhere withou t behavioral disturbance 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sewhere without behavioral disturbance 06/05/2018 [facility] Problem 2018-06-05 12:09:58 Titus Wan Thrombocytopenia, unspecified Thrombocytopenia, unspecified 11/24/2017 06/05/2018 [facility] Problem 23-11-18 03:52:43 2018-06-05 12:09:58 2018-06-05 12:09:58 Titus Wan Allergies, Adverse Reactions, Alerts Allergy Name Allergy Type Status Severity Reaction(s) Onset Date Inacti ve Date Treating Clinician Comments Source No Known Allergies DA Active U 2019-12-04 00:00:00 [facility] No Known Allergies DA Active U 2013-04-12 00:00:00 [facility] No Known Medication Allergies No Known Medication Allergies Active Titus Wan Social History Social Habit Start Date Stop Date Quantity Comments Source Social History 2017-07-12 04:59:00 2017-07-12 04:59:00 Titus Wan Sex Assigned At 1935 00:00:00 1935 00:00:00 Male [facility] Medications Ordered Medication Name Filled Medication Name [...] Amlodipine Besylate Amlodipine Besylate Yes 5 Daily [facility] Azithromycin (Z-Burt) 250 Mg TABLET Azithromycin (Z-Burt) 250 Mg TABLET Yes 250 Use As Directed [facility] Bacitracin/Polymyxin B Sulfate (Bacitracin-Polymyxin E ye Oint) 3.5 Gm OINT...G. Bacitracin/Polymyxin B Sulfate (Bacitracin-Polymyxin Eye Oint) 3.5 Gm OINT...G. Yes 1 Three Times A Day [facility] Fenofibrate Nanocrystallized (Fenofibrate) 145 Mg TABL ET Fenofibrate Nanocrystallized (Fenofibrate) 145 Mg TABLET Yes 160 Daily [facility] Gentle Tears Gentle Tears Yes 1 Daily [facility] Hydralazine Hcl Hydralazine Hcl Yes 25 Three Ti mes A Day [facility] Hydrochlorothiazide Hydrochlorothiazide Yes 12.5 Daily [facility] Latanoprost Latanoprost Yes 1 Bedtime [facility] Lisinopril Lisinopril Yes 40 Daily [facility] Lovastatin Lovastatin Yes 20 Daily [facility] Metoprolol Tartrate Metoprolol Tartrate Yes 25 Twice A Day [facility] Mu-Vits-Min Th/Lycopene/Lutein (Centrum Silver Tablet) 1 Each TABLET Mu-Vits-Min Th/Lycopene/Lutein (Centrum Silver Tablet) 1 Each TABLET Yes 1 Daily [facility] Omeprazole Omeprazole Yes 20 Daily [facility] Wheat Dextrin (Benefiber) 1 Each POWD.PACK Wheat Dextr in (Benefiber) 1 Each POWD.PACK Yes 1 Daily [facility] Finasteride Finasteride 2019-11-12 00:00:00 No 5 D aily [facility] Metformin Hcl Metformin Hcl 2019-11-12 00:00:00 No 500 Daily [facility] Tamsulosin Hcl Tamsulosin Hcl 2019-11-12 00:00:00 No .4 Daily [facility] Vital Signs Vital Name Observation Time Observation Value Comments Source Weight 2019-11-16 21:32:00 155 [lb_av] [facility] BMI (Body Mass Index) 2019-11-16 21:32:00 24.3 kg/m2 [facility] Body Temperature 2019-11-13 13:28:00 99.2 [degF] [facility] Height 2017-11-16 13:57:00 172.72 cm [facility] BMI Calculated 2017-11-16 13:57:00 [place] Weight 2017-11-16 13:57:00 [facility] Procedures Procedure Date / Time Performed Performing Clinician [facility] e X-ray of chest, two views 2019-11-08 00:00:00 [facility] Ultrasound, renal 2019-09-13 00:00:00 [facility] Bone marrow biopsy 2010-02-06 06:00:00 [facility] Cholecystectomy 1969-02-06 06:00:00 [facility] Lumbar discectomy<sup>1</sup> 1969-02-06 06:00:00 [facility] Plan of Care Planned Activity Planned Date Details Comments Source Instructions Resendiz Catheter Care [facility] Encounters Start Date/Time End Date/Time Encounter Type Admission Type Attendi [facility] Facility Care Department Encounter ID Source 2019-11-16 21:22:00 2019-11-16 22:41:00 Departed Emergency Room [id number] [facility] 2019-11-13 09:51:00 2019-11-13 09:51:00 Registered Surgical Day Car e 3 ROSALBA, [facility] [place] [id number] [facility] 2019-09-13 11:35:00 2019-09-13 11:35:00 Registered Clinic 3 DESI GONZALEZ, [facility] [place] [id number] [facility] 2018-12-07 14:35:00 2018-12-11 13:45:00 Discharged Inpatient 1 ANNIA DEL CASTILLO [facility] [id number] [facility] 2018-12-02 20:23:00 2018-12-03 01:53:00 Departed Emergency Room 1 HERMINIO ARRIAGA [facility] [id number] [facility] 2017-11-16 08:39:00 2017-11-16 23:59:00 Outpatient Andrei Canales [facility] [id number] 2017-07-11 08:00:00 2017-07-11 23:59:00 Outpatient Selena Segovia [facility] M[facility] [id number] 2017-06-23 08:09:00 2017-06-23 23:59:00 Outpatient Selena Segovia [facility]IP M[facility]OIP [id number] Results Test Description Test Time Test Comments Results Result Comments Source CHEST SINGLE (PORTABLE) 2019-12-27 12:22:00 [facility] 1935 Sex: M [place] [address] Patient Name: BRIAN COLBERT MR #: [id number] : 1935 Age/Sex: 84/M Req #: [id number] Adm Physician: Ordered by: JIM MOREIRA MD Report #: [id number] Location: ER Room/Bed: Procedure: [id number] DX/CHEST SINGLE (PORTABLE) Exam Date: 12/27/19 Exam [...] MD CT ABDOMEN/PELVIS W 2019-12-26 09:21:00 [facility] 1935 Sex: M [facility] [address] [address] Patient Name: BRIAN COLBERT MR #: [id number] : 1935 Age/Sex: 84/M Req #: [id number] [facility] Physician: Ordered by: NGOC NAVARRETE MD Report #: [id number] Location: CT Room/Bed: Procedure: [id number] CT/CT ABDOMEN/PELVIS W Exam Date: 12/26/19 Exam [...] Total DLP: 324 mGy*cm COMPLICATIONS: None 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 COMPARISON: 12/07/2018. [...] Interpretation Comments Bedside Glucose (test code = 90750-4) 128 70-120 Meter ID: [id number] [facility] 2019-11-08 15:09:00 [place] [address] Patient Name: BRIAN COLBERT MR #: [id number] : 1935 Age/Sex: 84/M Req #: [id number] Adm Physician: Ordered by: NGOC NAVARRETE MD Report #: [id number] Location: OR Room/Bed: Procedure: [id number] DX/CHEST 2 EWS Exam Date: 11/08/19 Exam [...] MD Fluoroscopic procedure less than one hour ybuphpdg8483-59-71 14:57:00* Test Item Value Reference Range Interpretation Comments Coronavirus (PCR) (test code = Coronavirus (PCR)) NOT DETECTED NOTD ETECTED SARS-CoV-2 PCRHologic Aptima SARS-CoV-2 assay is a nucleic amplification test in tended for the qualitative detection of RNA from SARS-CoV-2 from nasopharyngeal (APPRENTICE EMBALMER) specimens. It is used under Emergency Use [...] repr at testing oc clinically indicated.Tesing performed by:[facility] Laboratory Services[address] [place] [address] [id number], Fabian borrego MD, PhDLongview Regional Medical CenterBlmayo clinic health system leukocytes automated count (number/volume)2019-11-08 14:16:00* Test Item Value Reference Range Interpretation Comments White Blood Count (test code = 6690-2) 7.29 4.8-10.8 [facility] CenterBl[facility] erythrocytes automated count (number/volume)2019-11-08 14:16:00* Test Item Value Reference Range Interpretation Comments Red Blood Count (test code = 789-8) 2.89 4.3-5.7 [facility] CenterBlood hemoglobin measurement (moles/volume)2019-11-08 14:16:00* Test Item Value Reference Range Interpretation Comments Hemoglobin (test code = 84548-4) 9.2 14.0-18.0 [facility] CenterAutomated blood hematocrit (volume fraction)2019-11-08 14:16:00* Test Item Value Reference Range Interpretation Comments Hematocrit (test code = 4544-3) 27.5 38.2-49.6 [facility] CenterAutomated erythrocyte mean corpuscular tamkoa7516-59-55 14:16:00* Test Item Value Reference Range Interpretation Comments Mean Corpuscular Volume (test code = 787-2) 95.2 81-99 [facility] CenterAutomated erythrocyte mean corpuscular hemoglobin (mass per erythrocyte)2019-11-08 14:16:00* Test Item Value Reference Range Interpretation Comments Mean Corpuscular Hemoglobin (test code = 785-6) 31.8 28-32 [facility] CenterAutomated erythrocyte mean corpuscular hemoglobin concentration measurement (mass/volume)2019-11-08 14:16:00* Test Item Value Reference Range Interpretation Comments Mean Corpuscular Hemoglobin Concent (test code = 786-4) 33.5 31-35 [facility] CenterRDW LrkKx-Qhw7584-53-02 14:16:00* Test Item Value Reference Range Interpretation Comments Red Cell Distribution Width (test code = 39072-7) 14.4 11.7 -14.4 [facility] CenterAutomated blood platelet count (count/volume)2019-11-08 14:16:00* Test Item Value Reference Range Interpretation Comments Platelet Count (test code = 777-3) 131 140-360 [facility] CenterAutomated blood segmented neutrophil count as percentage of total xnnuqpbnnm6033-42-42 14:16:00* Test Item Value Reference Range Interpretation Comments Neutrophils (%) (Auto) (test code = 17974-3) 68.4 38.7-80.0 [facility] CenterAutomated blood lymphocyte count as percentage ot total nxiabiadhd1459-77-26 14:16:00* Test Item Value Reference Range Interpretation Comments Lymphocytes (%) (Auto) (test code = 736-9) 11.0 18.0-39.1 [facility] CenterAutomated blood monocyte count as percentage of total nmeohjdnwz4287-93-19 14:16:00* Test Item Value Reference Range Interpretation Comments Monocytes (%) (Auto) (test code = 5905-5) 18.1 4.4-11.3 [facility] CenterAutomated blood eosinophil count as percentage of total qbtiyeppyx4977-84-25 14:16:00* Test Item Value Reference Range Interpretation Comments Eosinophils (%) (Auto) (test code = 713-8) 1.0 0.0-6.0 [facility] CenterAutomated blood basophil count as percentage of total oqzviuyrao8570-54-10 14:16:00* Test Item Value Reference Range Interpretation Comments Basophils (%) (Auto) (test code = 706-2) 0.4 0.0-1.0 [facility] CenterFluoroscopic procedure less than one hour ygdajzys4091-23-56 14:16:00* Test Item Value Reference Range Interpretation Comments IM GRANULOCYTES % (test code = IM GRANULOCYTES %) 1.1 0.0- 1.0 [facility] CenterAutomated blood neutrophil count 2019-11-08 14:16:00* Test Item Value Reference Range Interpretation Comments Neutrophils # (Auto) (test code = 751-8) 5.0 2.1-6.9 [facility] CenterBlood lymphocytes count (number/volume) 2019-11-08 14:16:00* Test Item Value Reference Range Interpretation Comments Lymphocytes # (Auto) (test code = 71378-0) 0.8 1.0-3.2 [facility] CenterBlmayo clinic health system monocytes automated count (number/volume)2019-11-08 14:16:00* Test Item Value Reference Range Interpretation Comments Monocytes # (Auto) (test code = 742-7) 1.3 0.2-0.8 [facility] CenterAutomated blood eosinophil count 2019-11-08 14:16:00* Test Item Value Reference Range Interpretation Comments Eosinophils # (Auto) (test code = 711-2) 0.1 0.0-0.4 [facility] CenterAutomated blood basophil count (count/volume)2019-11-08 14:16:00* Test Item Value Reference Range Interpretation Comments Basophils # (Auto) (test code = 704-7) 0.0 0.0-0.1 [facility] CenterFluoroscopic procedure less than one hour fdwsxaux6540-32-37 14:16:00* Test Item Value Reference Range Interpretation Comments Absolute Immature Granulocyte (auto (nic t code = Absolute Immature Granulocyte (auto) 0.08 0-0.1 [facility]ererum or plasma sodium measurement (moles/volume)2019-11-08 14:16:00* Test Item Value Reference Range Interpretation Comments Sodium Level (test code = 2951-2) 138 136-145 [facility] Centererum or plasma potassium measurement (moles/volume)2019-11-08 14:16:00* Test Item Value Reference Range Interpretation Comments Potassium Level (test code = 2823-3) 3.5 3.5-5.1 [facility] Centererum or plasma chloride measurement (moles/volume)2019-11-08 14:16:00* Test Item Value Reference Range Interpretation Comments Chloride Level (test code = 2075-0) 103 98-107 [facility] Centererum or plasma carbon dioxide, total measurement (moles/volume)2019-11-08 14:16:00* Test Item Value Reference Range Interpretation Comments Carbon Dioxide Level (test code = 2028-9) 26 22-29 [facility] Centererum or plasma anion wuv8037-87-95 14:16:00* Test Item Value Reference Range Interpretation Comments Anion Gap (test code = 31196-0) 12.5 8-16 [facility] Centererum or plasma urea nitrogen measurement (mass/volume)2019-11-08 14:16:00* Test Item Value Reference Range Interpretation Comments Blood Urea Nitrogen (test code = 3094-0) 27 7-26 [facility] Centererum or plasma creatinine measurement (mass/volume)2019-11-08 14:16:00* Test Item Value Reference Range Interpretation Comments Creatinine (test code = 2160-0) 1.54 0.72-1.25 [facility] Centererum or plasma urea nitrogen/creatinine mass plygv6313-40-67 14:16:00* Test Item Value Reference Range Interpretation Comments BUN/Creatinine Ratio (test code = 3097-3) 18 6-25 [facility] CenterEstimated glomerular filtration rate (GFR) ivhoowoxbxndq9615-24-01 14:16:00* Test Item Value Reference Range Interpretation Comments Estimat Glomerular Filtration Rate (test code = 548508100) 43 >60 Ranges were taken from the National Kidney Disease Education Program and the [facility], [employer] literature.Reference ranges:60 or greater: Wbbief14-62 ( for 3 consecutive months): Chronic kidney disease 15 or less: Kidney failureLongview Regional Medical CenterGlucose ndchanrfzvf3950-43-23 14:16:00* Test Item Value Reference Range Interpretation Comments Glucose Level (test code = ZVF3243) 112 74-118 [facility] Centererum or plasma calcium measurement (mass/volume)2019-11-08 14:16:00* Test Item Value Reference Range Interpretation Comments Calcium Level (test code = 72476-7) 9.0 8.4-10.2 [facility] RETROPERITONEAL TVFL8927-87-44 12:48:00 [facility] [address] [place] [address] Patient Name: BRIAN COLBERT MR #: [id number] : 1935 Age/Sex: 84/M Req #: [id number] Adm Physician: Ordered by: NGOC NAVARRETE MD Report #: [id number] Location: Room/Bed: Procedure: [id number] US/US RENAL R ETROPERITONEAL COMP Exam Date: 09/13/19 Exam Time: 1 201 REPORT STATUS: Signed EXAM: Renal Ultrasound INDICATION: [id number] CYST OF KIDNEY COMPARISON: CT abdomen [...] COPY TO: NGOC NAVARRETE MD CBC W/MANUAL [id number] 16:05:00* Test Item Value Reference Range Interpretation [...] LARGE PLATELETS RARE GIANT PLATELETS CBC W/MANUAL MBWY3610-70-83 16:05:00* Test Item Value Reference Range Interpretation [...] reported result: 82 x10\S\3/uLEdited by: [email or web address] on 02/05/19:390932 1605: PLT previously reported as: 82 L [...] LARGE PLATELETS RARE GIANT PLATELETS CBC W/MANUAL [id number] 15:19:00* Test Item Value Reference Range Interpretation [...] (test code = PLTEST) THOUSAND ADEQUATE Bedside Gffimyx4727-93-38 10:54:00* Test Item Value Reference Range Interpretation Comments Bedside Glucose (test code = 45407-8) 169 70-120 H Meter ID: [id number] Regional Medical CenterWhite Blood Count 2018-12-11 05:28:00* Test Item Value Reference Range Interpretation Comments White Blood Count (test code = 6690-2) 6.11 4.8-10.8 [facility] CenterRed Blood Zgvcj9574-44-74 05:28:00* Test Item Value Reference Range Interpretation Comments Red Blood Count (test code = 789-8) 2.36 4.3-5.7 L [facility] CenterHemoglobin2019-11-05 05:28:00* Test Item Value Reference Range Interpretation Comments Hemoglobin (test code = 64741-4) 7.3 14.0-18.0 L [facility] CenterHematocrit2019-11-05 05:28:00* Test Item Value Reference Range Interpretation Comments Hematocrit (test code = 4544-3) 22.2 38.2-49.6 L [facility] CenterMean Corpuscular Zlibag5469-78-20 05:28:00* Test Item Value Reference Range Interpretation Comments Mean Corpuscular Volume (test code = 787-2) 94.1 81-99 [facility] CenterMean Corpuscular Npmzasfldc5123-06-68 05:28:00* Test Item Value Reference Range Interpretation Comments Mean Corpuscular Hemoglobin (test code = 785-6) 30.9 28-32 [facility] CenterMean Corpuscular Hemoglobin Concent 2018-12-11 05:28:00* Test Item Value Reference Range Interpretation Comments Mean Corpuscular Hemoglobin Concent (test code = 786-4) 32.9 31-35 [facility] CenterRed Cell Distribution Pxmnm8380-68-44 05:28:00* Test Item Value Reference Range Interpretation Comments Red Cell Distribution Width (test code = 34879-1) 13.6 11.7 -14.4 [facility] CenterPlatelet Mweye8953-00-78 05:28:00* Test Item Value Reference Range Interpretation Comments Platelet Count (test code = 777-3) 114 140-360 L [facility] CenterNeutrophils (%) (Auto)2018-12-11 05:28:00 * Test Item Value Reference Range Interpretation Comments Neutrophils (%) (Auto) (test code = 73197-0) 66.8 38.7-80.0 [facility] CenterLymphocytes (%) (Auto)2018-12-11 05:28:00 * Test Item Value Reference Range Interpretation Comments Lymphocytes (%) (Auto) (test code = 736-9) 12.4 18.0-39.1 L [facility] CenterMonocytes (%) (Auto)2018-12-11 05:28:00* Test Item Value Reference Range Interpretation Comments Monocytes (%) (Auto) (test code = 5905-5) 18.8 4.4-11.3 H [facility] CenterEosinophils (%) (Auto)2018-12-11 05:28:00 * Test Item Value Reference Range Interpretation Comments Eosinophils (%) (Auto) (test code = 713-8) 0.7 0.0-6.0 [facility] CenterBasophils (%) (Auto)2018-12-11 05:28:00* Test Item Value Reference Range Interpretation Comments Basophils (%) (Auto) (test code = 706-2) 0.2 0.0-1.0 [facility] CenterIM GRANULOCYTES %2018-12-11 05:28:00* Test Item Value Reference Range Interpretation Comments IM GRANULOCYTES % (test code = IM GRANULOCYTES %) 1.1 0.0- 1.0 H [facility] CenterNeutrophils # (Auto)2018-12-11 05:28:00* Test Item Value Reference Range Interpretation Comments Neutrophils # (Auto) (test code = 751-8) 4.1 2.1-6.9 [facility] CenterLymphocytes # (Auto)2018-12-11 05:28:00* Test Item Value Reference Range Interpretation Comments Lymphocytes # (Auto) (test code = 10430-6) 0.8 1.0-3.2 L [facility] CenterMonocytes # (Auto)2018-12-11 05:28:00* Test Item Value Reference Range Interpretation Comments Monocytes # (Auto) (test code = 742-7) 1.2 0.2-0.8 H [facility] CenterEosinophils # (Auto)2018-12-11 05:28:00* Test Item Value Reference Range Interpretation Comments Eosinophils # (Auto) (test code = 711-2) 0.0 0.0-0.4 [facility] CenterBasophils # (Auto)2018-12-11 05:28:00* Test Item Value Reference Range Interpretation Comments Basophils # (Auto) (test code = 704-7) 0.0 0.0-0.1 [facility] CenterAbsolute Immature Granulocyte (auto 2018-12-11 05:28:00* Test Item Value Reference Range Interpretation Comments Absolute Immature Granulocyte (auto (nic t code = Absolute Immature Granulocyte (auto) 0.07 0-0.1 [facility] CenterIR [id number] 11:11:00 [facility] [address] [address] Patient Name: BRIAN COLBERT MR #: [id number] : 02/1935 Age/Sex: 83/M Req #: [id number] Adm Physician: ABNER DEL CASTILLO DO Ordered by: NGOC NAVARRETE MD Report #: [id number] Location: MED/SURG Room/Bed: [facility] Procedure: [id number] DX /IR CONSULT Exam Date: Exam Time: [...] patent flow of contrast through the internal carver al nephroureteral stent. Successful removal of right percutaneous nephros saúl catheter. Plan: Clinical followup per urology service. PROCEDURE SUMMARY - Target organ: Right [place] kidney - Antegrade nephrostogram(s) via the existi [...] NGOC NAVARRETE MD NEPH TUBE REMOVAL W/FL UERMK2309-67-09 11:11:00 [place] [address] Patient Name: BRIAN COLBERT MR #: [id number] : 1935 Age/Sex: 83/M Req #: [id number] Adm Physician: ABENR DEL CASTILLO DO Ordered by: NGOC NAVARRETE MD Report #: [id number] Location: MED/SURG Room/Bed: [facility] Procedure: [id number] IR /NEPH TUBE REMOVAL W/FL RIGHT Exam [...] PRO CEDURE SUMMARY - Target organ: Right [place] kidney - Antegrade nephrostogram (s) via the [...] O: NGOC NAVARRETE MD Differential Total Cells Cfosrfy4068-65-16 08:08:00* Test Item Value Reference Range Interpretation Comments Differential Total Cells Counted (test code = Differangel tial Total Cells Counted) 100 [facility] CenterNeutrophils % (Manual)2018-12-10 08:08:00 * Test Item Value Reference Range Interpretation Comments Neutrophils % (Manual) (test code = 18027-7) 73 40-74 [facility] CenterBand Neutrophils %2018-12-10 08:08:00* Test Item Value Reference Range Interpretation Comments Band Neutrophils % (test code = 764-1) 1 [facility] CenterLymphocytes % (Manual)2018-12-10 08:08:00 * Test Item Value Reference Range Interpretation Comments Lymphocytes % (Manual) (test code = 737-7) 11 19-48 L [facility] CenterMonocytes % (Manual)2018-12-10 08:08:00* Test Item Value Reference Range Interpretation Comments Monocytes % (Manual) (test code = 744-3) 13 3.4-9.0 [facility] CenterBasophils % (Manual)2018-12-10 08:08:00* Test Item Value Reference Range Interpretation Comments Basophils % (Manual) (test code = 64583-4) 2 0-1.5 H [facility] CenterPlatelet Ostynfyd8108-11-66 08:08:00* Test Item Value Reference Range Interpretation Comments Platelet Estimate (test code = 84248-9) SLIGHTLY DECREASED [facility] CenterPlatelet Morphology Wkuafcu8296-02-25 08:08:00* Test Item Value Reference Range Interpretation Comments Platelet Morphology Comment (test code = 25673-4) FEW LARGE [facility] CenterPolychromasia2019-11-04 08:08:00* Test Item Value Reference Range Interpretation Comments Polychromasia (test code = 57501-4) FEW [facility] CenterPoikilocytosis2019-11-04 08:08:00* Test Item Value Reference Range Interpretation Comments Poikilocytosis (test code = 779-9) SLIGHT [facility] CenterAnisocytosis2019-11-04 08:08:00* Test Item Value Reference Range Interpretation Comments Anisocytosis (test code = 702-1) SLIGHT [facility] CenterMacrocytosis2019-11-04 08:08:00* Test Item Value Reference Range Interpretation Comments Macrocytosis (test code = 738-5) SLIGHT [facility] CenterTear Drop Qjvju4657-72-48 08:08:00* Test Item Value Reference Range Interpretation Comments Tear Drop Cells (test code = 7791-7) FEW [facility] CenterHelmet Ntjdm0504-59-79 08:08:00* Test Item Value Reference Range Interpretation Comments Helmet Cells (test code = 62044-8) SLIGHT [facility] CenterAcanthocytes2019-11-04 08:08:00* Test Item Value Reference Range Interpretation Comments Acanthocytes (test code = 7789-1) FEW [facility] CenterRed Cell Morphology Kehvnmv2050-95-06 08:08:00* Test Item Value Reference Range Interpretation Comments Red Cell Morphology Comment (test code = 6742-1) [facility]NORMAL [facility] Cvusw0421-26-18 06:19:00* Test Item Value Reference Range Interpretation Comments Sodium Level (test code = 2951-2) 137 136-145 [facility] CenterPotassium Ybkab0766-09-45 06:19:00* Test Item Value Reference Range Interpretation Comments Potassium Level (test code = 2823-3) 4.1 3.5-5.1 [facility] CenterChloride Ixnvp9906-42-24 06:19:00* Test Item Value Reference Range Interpretation Comments Chloride Level (test code = 2075-0) 106 98-107 [facility] CenterCarbon Dioxide Abndb0317-43-35 06:19:00* Test Item Value Reference Range Interpretation Comments Carbon Dioxide Level (test code = 2028-9) 23 22-29 [facility] CenterAnion Tac6765-92-18 06:19:00* Test Item Value Reference Range Interpretation Comments Anion Gap (test code = 40368-4) 12.1 8-16 [facility] CenterBlood Urea Uuelgium3815-57-22 06:19:00* Test Item Value Reference Range Interpretation Comments Blood Urea Nitrogen (test code = 3094-0) 14 7-26 [facility] CenterCreatinine2019-11-04 06:19:00* Test Item Value Reference Range Interpretation Comments Creatinine (test code = 2160-0) 1.09 0.72-1.25 [facility] CenterBUN/Creatinine Yivwm6165-49-04 06:19:00* Test Item Value Reference Range Interpretation Comments BUN/Creatinine Ratio (test code = 3097-3) 13 6-25 [facility] CenterEstimat Glomerular Filtration Rate 2018-12-10 06:19:00* Test Item Value Reference Range Interpretation Comments Estimat Glomerular Filtration Rate (test code = 165303745) > 60 >60 Ranges were taken from the National Kidney Disease Education Program and the [facility] [employer] literature.Reference ranges:60 or greater: Gblyzr95-95 ( for 3 consecutive months): Chronic kidney disease 15 or less: Kidney failureLong[facility] Medical CenterGlucose Xkeqw9897-68-66 06:19:00* Test Item Value Reference Range Interpretation Comments Glucose Level (test code = IKV0735) 107 74-118 [facility] CenterCalcium Zygrp5448-05-55 06:19:00* Test Item Value Reference Range Interpretation Comments Calcium Level (test code = 82396-3) 8.1 8.4-10.2 L [facility] CenterPECIAL PROCEDURE IN CATH ZEA8107-13-51 20:57:00 [facility] [address] [address] Patient Name: BRIAN COLBERT MR #: [id number] : 1935 Age/Sex: 83/M Req #: [id number] Adm Physician: ABNER DEL CASTILLO DO Ordered by: NGOC NAVARRETE MD Report #: [id number] Location: MED/SURG Room/Bed: [facility] Procedure: [id number] IR /SPECIAL PROCEDURE IN HOME 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 The wire was remove d and a 0.0 3 5-in. Roadrunner wire and 4 Russian hydrophilic catheter were adv anced through the [...] exchanged over the wire for an 8 Russian nephrostomy catheter. The wire was removed and [...] antegrad e right-sided double-J ureteral stent (8.5 Russian, 24 cm interloop length) cou pled with an 8 Russian percutaneous nephrostomy catheter. Signed by: Dr Elizabeth Grissom M.D. on 12/07/2018 9:05 PM Dictated By: HELEN GRISSOM MD 1440 Transcribed By: MANSOOR BORJAS on 12/18/18 1440 COPY TO: NGOC NAVARRETE MD IR CONSULT 2018-12-07 20:57:[address] [address] Patient Name: BRIAN COLBERT MR #: [id number] : 1935 Age/Sex: 83/M Req #: [id number] Adm Physician: ABNER DEL CASTILLO DO Ordered by: NGOC NAVARRETE MD Report #: [id number] Location: MED/SURG Room/Bed: [facility] Procedure: [id number] DX /IR CONSULT Exam Date: Exam Time: REPORT STATUS: Signed Date and Time: 12/07/2018 Procedure: Right percutaneous nephrostogram with antegrade ureteral stent placement and nephrostomy catheter placement regenerator operator: Dr. Grissom Pre-operative diagnosis: Bladder mass [...] than 10 cc Specimens: None Implants: 8.5 Russian, 24 cm i nternal ureteral stent; 8 Russian percutaneous nephrostomy DISCUSSION: Informed consent was obtained [...] The needle was exchanged for a 6 Russian coaxial sheath which was adv anced to the level of the renal pelvis. The wire was removed and a 0.0 3 5-in. Roadrunner wire and 4 Russian hydrophilic catheter were advanced through the s sandra, down the ureter, and into the urinary bladder, with appropriate positio dave confirmed by injection of dilute contrast material. A 0.0 3 5-in. Am kurt wire was then advanced through the catheter and coiled within the urinar y bladder. The catheter and sheath were removed. An 8.5 Russian, 24 cm interloo p length ureteral stent [...] ov er the wire for an 8 Russian nephrostomy catheter. The wire was removed and [...] antegrade right-sided doubl e-J ureteral stent (8.5 Russian, 24 cm interloop length) coupled with an 8 Fren ch percutaneous nephrostomy catheter. Signed by: Kavita Torres on 12/07/2018 9:05 PM Dictated By: HELEN GRISSOM MD Electronically Sig coby By: HELEN GRISSOM MD on 12/18/18 1440 Transcribed By: ELKE on 12/18/18 1 440 COPY TO: NOGC NAVARRETE MD [facility] URETER STNT PERC NEW w NV 2018-12-07 20:57:00 [address] [address] Patient Name: BRIAN COLBERT MR #: [id number] : 1935 Age/Sex: 83/M Req #: [id number] Adm Physician: ABNER DEL CASTILLO DO Ordered by: NGOC NAVARRETE MD Report #: [id number] Location: MED/SURG Room/Bed: [facility] Procedure: [id number] IR /PLMT URETER STNT PERC NEW w [...] than 10 cc Specimens: None Implants: 8.5 Russian, 24 cm internal ureteral stent; 8 Russian percutaneous nephrostomy DISCUSSION: Informed consent was obtained [...] The needle was exchanged for a 6 Russian coaxial sheath which was advanced to the level of the renal pelvis. The wire was remov ed and a 0.0 3 5-in. Roadrunner wire and 4 Russian hydrophilic catheter were ad vanced through the [...] exchanged over the wire for an 8 Russian nephrostomy catheter. The wire was removed and [...] antegra de right-sided double-J ureteral stent (8.5 Russian, 24 cm interloop length) co upled with an 8 Russian percutaneous nephrostomy catheter. Signed by: Fatimah Grissom M.D. on 12/07/2018 9:05 PM Dictated By: HELEN GRISSOM MD 144 Transcribed By: Rayo BRAUN on 12/18/18 1440 COPY TO: NGOC NAVARRETE MD Eosinophils % (Manual)2018-12-07 11:24:00* Test Item Value Reference Range Interpretation Comments Eosinophils % (Manual) (test code = 714-6) 3 0-7 [facility] CenterOvalocytes2019-11-01 11:24:00* Test Item Value Reference Range Interpretation Comments Ovalocytes (test code = 774-0) FEW [facility] CenterElliptocytes2019-11-01 11:24:00* Test Item Value Reference Range Interpretation Comments Elliptocytes (test code = 82537-5) SLIGHT [facility] CenterCT ABDOMEN/PELVIS E2592-47-60 10:43:00 [facility] [address] [address] Patient Name: BRIAN COLBERT MR #: [id number] : 02/1935 Age/Sex: 83/M Req #: [id number] Adm Physician: ANNIA DEL CASTILLO MD Ordered by: ABNER DEL CASTILLO DO Report #: [id number] Location: [facility] Room/Bed: [address] [address] Procedure: [id number] CT/CT ABDOMEN/PELVIS W Exam Date: 12/07/18 Exam [...] COPY TO: ABNER DEL CASTILLO DO Prothrombin Taar6897-53-59 08:56:00* Test Item Value Reference Range Interpretation Comments Prothrombin Time (test code = 5902-2) 13.7 11.9-14.5 [facility] CenterProthromb Time International Ratio 2018-12-07 08:56:00* Test Item Value Reference Range Interpretation Comments Prothromb Time International Ratio (test code = 6301-6) 1.00 Oral Anticoagulant Therapy INR Values:1. Low Intensity Therapy 1.5 - 2.02 . Moderate Intensity Therapy 2.0 - 3.03. High Intensity Therapy(1) 2.5 - 3. 54. High Intensity Therapy(2) 3.0 - 4.05. Panic Value INR > 5.0 [facility] CenterUrine KSP8742-16-69 08:53:00* Test Item Value Reference Range Interpretation Comments Urine WBC (test code = 5821-4) 11-20 0-5 H [facility] CenterUrine BIZ7284-42-65 08:53:00* Test Item Value Reference Range Interpretation Comments Urine RBC (test code = 01188-7) >50 0-5 H [facility] CenterUrine Ghemjimu1907-07-47 08:53:00* Test Item Value Reference Range Interpretation Comments Urine Bacteria (test code = 76359-0) MANY NONE [facility] Epithelial Vecgn2253-60-87 08:53:00 * Test Item Value Reference Range Interpretation Comments Urine Epithelial Cells (test code = 71714-3) MODERATE NONE [facility] CenterUrine Amorphous Ytvjiejf0719-52-21 08:53:00* Test Item Value Reference Range Interpretation Comments Urine Amorphous Sediment (test code = 8246-1) MODERATE FEW H [facility] CenterUrine Efdxl0716-22-14 08:49:00* Test Item Value Reference Range Interpretation Comments Urine Color (test code = 5778-6) RED YELLOW [facility] CenterUrine Vrlacvs8268-06-81 08:49:00* Test Item Value Reference Range Interpretation Comments Urine Clarity (test code = 93640-7) TURBID CLEAR [facility] CenterUrine Specific Xtompfp2294-85-03 08:49:00 * Test Item Value Reference Range Interpretation Comments Urine Specific [place] (test code = 5811-5) 1.020 1.010-1.02 5 [facility] CenterUrine tP1761-25-77 08:49:00* Test Item Value Reference Range Interpretation Comments Urine pH (test code = 33592-9) 5 5-7 [facility] CenterUrine Leukocyte Wbouuecj1608-77-85 08:49:00* Test Item Value Reference Range Interpretation Comments Urine Leukocyte Esterase (test code = 13155-1) TRACE NEGATIV E [facility] CenterUrine Tgyutoz0238-99-55 08:49:00* Test Item Value Reference Range Interpretation Comments Urine Nitrite (test code = 26333-2) POSITIVE NEGATIVE [facility] CenterUrine Kymntfn0317-12-17 08:49:00* Test Item Value Reference Range Interpretation Comments Urine Protein (test code = 98954-4) 2+ NEGATIVE H [facility] CenterUrine Glucose (UA)2018-12-07 08:49:00* Test Item Value Reference Range Interpretation Comments Urine Glucose (UA) (test code = 29005-3) NEGATIVE NEGATIVE [facility] CenterUrine Urewugy1237-80-27 08:49:00* Test Item Value Reference Range Interpretation Comments Urine Ketones (test code = 92589-8) NEGATIVE NEGATIVE [facility] CenterUrine Pnrhvaalxpga5550-15-24 08:49:00* Test Item Value Reference Range Interpretation Comments Urine Urobilinogen (test code = 88393-1) 1 0.2-1 [facility] CenterUrine Ruezrjpui6073-05-46 08:49:00* Test Item Value Reference Range Interpretation Comments Urine Bilirubin (test code = 1977-8) NEGATIVE NEGATIVE [facility] CenterUrine Xpkbd3541-99-19 08:49:00* Test Item Value Reference Range Interpretation Comments Urine Blood (test code = 96728-4) 3+ NEGATIVE [facility] CenterCT ABDOMEN/PELVIS GOH8301-59-88 00:24:00 [facility] [address] [address] Patient Name: BRIAN COLBERT MR #: [id number] : 02/1935 Age/Sex: 83/M Req #: [id number] Adm Physician: Ordered by: HERMINIO ARRIAGA MD Report #: [id number] Location: ER Room/Bed: Procedure: 1027-[address]/CT [...] lower lungs may reflect bronchitis. Signed by: Eimliano Duarte DO on 12/03/2018 12:45 AM Dictated By: PETRA DUARTE DO 004 5 Transcribed By: ELKE on 12/03/185 COPY TO: HERMINIO ARRIAGA MD Sodium Zymdm5167-23-52 21:57:00* Test Item Value Reference Range Interpretation Comments Sodium Level (test code = 2951-2) 136 136-145 [facility] CenterPotassium Ulooc5201-59-37 21:57:00* Test Item Value Reference Range Interpretation Comments Potassium Level (test code = 2823-3) 3.9 3.5-5.1 [facility] CenterChloride Gniiv8071-00-14 21:57:00* Test Item Value Reference Range Interpretation Comments Chloride Level (test code = 2075-0) 102 98-107 [facility] CenterCarbon Dioxide Jmfpo4461-97-13 21:57:00* Test Item Value Reference Range Interpretation Comments Carbon Dioxide Level (test code = 8-9) 23 22-29 [facility] CenterAnion Xrm5395-40-76 21:57:00* Test Item Value Reference Range Interpretation Comments Anion Gap (test code = 09836-0) 14.9 8-16 [facility] CenterBlood Urea Oynerkyx3083-29-28 21:57:00* Test Item Value Reference Range Interpretation Comments Blood Urea Nitrogen (test code = 3094-0) 37 7-26 H [facility] CenterCreatinine2019-10-27 21:57:00* Test Item Value Reference Range Interpretation Comments Creatinine (test code = 2160-0) 1.64 0.72-1.25 H [facility] CenterBUN/Creatinine Waebr5960-69-01 21:57:00* Test Item Value Reference Range Interpretation Comments BUN/Creatinine Ratio (test code = 3097-3) 23 6-25 [facility] CenterEstimat Glomerular Filtration Rate 2018-12-02 21:57:00* Test Item Value Reference Range Interpretation Comments Estimat Glomerular Filtration Rate (test code = 892816175) 40 >60 L Ranges were taken from the National Kidney Disease Education Program and the [employer], [employer] Kidney Foundation literature.Reference ranges:60 or greater: Fgdacf49-37 ( for 3 consecutive months): Chronic kidney disease 15 or less: Kidney failureLongview Regional Medical CenterGlucose Mngqq5047-84-17 21:57:00* Test Item Value Reference Range Interpretation Comments Glucose Level (test code = WHJ3848) 165 74-118 H [facility] CenterCalcium Thzzc8581-03-11 21:57:00* Test Item Value Reference Range Interpretation Comments Calcium Level (test code = 20034-4) 8.4 8.4-10.2 [facility] CenterTotal Qyhuzfiqv4955-39-61 21:57:00* Test Item Value Reference Range Interpretation Comments Total Bilirubin (test code = 1975-2) 0.3 0.2-1.2 [facility] CenterAspartate Amino Transf (AST/SGOT) 2018-12-02 21:57:00* Test Item Value Reference Range Interpretation Comments Aspartate Amino Transf (AST/SGOT) (test code = Aspartate Amino Transf (AST/SGOT)) 16 5-34 [facility] CenterAlanine Aminotransferase (ALT/SGPT) 2018-12-02 21:57:00* Test Item Value Reference Range Interpretation Comments Alanine Aminotransferase (ALT/SGPT) (test code = 1742-6) 11 0-55 [facility] CenterTotal Vtvzime7008-12-31 21:57:00* Test Item Value Reference Range Interpretation Comments Total Protein (test code = 2885-2) 6.3 6.5-8.1 L [facility] CenterAlbumin2019-10-27 21:57:00* Test Item Value Reference Range Interpretation Comments Albumin (test code = 1751-7) 3.8 3.5-5.0 [facility] CenterGlobulin2019-10-27 21:57:00* Test Item Value Reference Range Interpretation Comments Globulin (test code = 92758-9) 2.5 2.3-3.5 [facility] CenterAlbumin/Globulin Xxhdd5687-90-08 21:57:00 * Test Item Value Reference Range Interpretation Comments Albumin/Globulin Ratio (test code = 1759-0) 1.5 0.8-2.0 [facility] CenterAlkaline Vhjfuwtawoa7112-85-84 21:57:00* Test Item Value Reference Range Interpretation Comments Alkaline Phosphatase (test code = 6768-6) 33 40-150 L [facility] CenterTotal Nukrthsdd4475-70-53 21:57:00* Test Item Value Reference Range Interpretation Comments Total Bilirubin (test code = 1975-2) 0.3 0.2-1.2 [facility] CenterAspartate Amino Transf (AST/SGOT) 2018-12-02 21:57:00* Test Item Value Reference Range Interpretation Comments Aspartate Amino Transf (AST/SGOT) (test code = Aspartate Amino Transf (AST/SGOT)) 16 5-34 [facility] CenterAlanine Aminotransferase (ALT/SGPT) 2018-12-02 21:57:00* Test Item Value Reference Range Interpretation Comments Alanine Aminotransferase (ALT/SGPT) (test code = 1742-6) 11 0-55 [facility] CenterTotal Secwbwf9460-79-58 21:57:00* Test Item Value Reference Range Interpretation Comments Total Protein (test code = 2885-2) 6.3 6.5-8.1 L [facility] CenterAlbumin2019-10-27 21:57:00* Test Item Value Reference Range Interpretation Comments Albumin (test code = 1751-7) 3.8 3.5-5.0 [facility] CenterGlobulin2019-10-27 21:57:00* Test Item Value Reference Range Interpretation Comments Globulin (test code = 95051-7) 2.5 2.3-3.5 [facility] CenterAlbumin/Globulin Phptu7674-52-37 21:57:00 * Test Item Value Reference Range Interpretation Comments Albumin/Globulin Ratio (test code = 1759-0) 1.5 0.8-2.0 [facility] CenterAlkaline Kabeohxpenz5275-48-88 21:57:00* Test Item Value Reference Range Interpretation Comments Alkaline Phosphatase (test code = 6768-6) 33 40-150 L [facility] CenterUrine IIL3611-71-38 21:52:00* Test Item Value Reference Range Interpretation Comments Urine WBC (test code = 5821-4) 0-5 0-5 [facility] CenterUrine HWJ8449-33-51 21:52:00* Test Item Value Reference Range Interpretation Comments Urine RBC (test code = 73348-9) >50 0-5 H [facility] CenterUrine Qilrqkwo8733-67-45 21:52:00* Test Item Value Reference Range Interpretation Comments Urine Bacteria (test code = 87205-2) FEW NONE [facility] CenterUrine Epithelial Fjtvo5530-99-12 21:52:00 * Test Item Value Reference Range Interpretation Comments Urine Epithelial Cells (test code = 71141-2) RARE NONE [facility] CenterWhite Blood Ehzkk2266-34-83 21:46:00* Test Item Value Reference Range Interpretation Comments White Blood Count (test code = 6690-2) 5.27 4.8-10.8 [facility] CenterRed Blood Irxnn7248-07-14 21:46:00* Test Item Value Reference Range Interpretation Comments Red Blood Count (test code = 789-8) 2.80 4.3-5.7 L [facility] CenterHemoglobin2019-10-27 21:46:00* Test Item Value Reference Range Interpretation Comments Hemoglobin (test code = 95328-1) 8.7 14.0-18.0 L [facility] CenterHematocrit2019-10-27 21:46:00* Test Item Value Reference Range Interpretation Comments Hematocrit (test code = 4544-3) 26.0 38.2-49.6 L [facility] CenterMean Corpuscular Fxlofh3520-37-88 21:46:00* Test Item Value Reference Range Interpretation Comments Mean Corpuscular Volume (test code = 787-2) 92.9 81-99 [facility] CenterMean Corpuscular Xsbsnhjrpz7876-08-57 21:46:00* Test Item Value Reference Range Interpretation Comments Mean Corpuscular Hemoglobin (test code = 785-6) 31.1 28-32 [facility] CenterMean Corpuscular Hemoglobin Concent 2018-12-02 21:46:00* Test Item Value Reference Range Interpretation Comments Mean Corpuscular Hemoglobin Concent (test code = 786-4) 33.5 31-35 [facility] CenterRed Cell Distribution Mufai9809-95-17 21:46:00* Test Item Value Reference Range Interpretation Comments Red Cell Distribution Width (test code = 48747-1) 13.6 11.7 -14.4 [facility] CenterPlatelet Ixlgf8256-57-14 21:46:00* Test Item Value Reference Range Interpretation Comments Platelet Count (test code = 777-3) 117 140-360 L [facility] CenterNeutrophils (%) (Auto)2018-12-02 21:46:00 * Test Item Value Reference Range Interpretation Comments Neutrophils (%) (Auto) (test code = 89643-1) 66.5 38.7-80.0 [facility] CenterLymphocytes (%) (Auto)2018-12-02 21:46:00 * Test Item Value Reference Range Interpretation Comments Lymphocytes (%) (Auto) (test code = 736-9) 16.1 18.0-39.1 L [facility] CenterMonocytes (%) (Auto)2018-12-02 21:46:00* Test Item Value Reference Range Interpretation Comments Monocytes (%) (Auto) (test code = 5905-5) 15.7 4.4-11.3 H [facility] CenterEosinophils (%) (Auto)2018-12-02 21:46:00 * Test Item Value Reference Range Interpretation Comments Eosinophils (%) (Auto) (test code = 713-8) 0.4 0.0-6.0 [facility] CenterBasophils (%) (Auto)2018-12-02 21:46:00* Test Item Value Reference Range Interpretation Comments Basophils (%) (Auto) (test code = 706-2) 0.4 0.0-1.0 [facility] CenterIM GRANULOCYTES %2018-12-02 21:46:00* Test Item Value Reference Range Interpretation Comments IM GRANULOCYTES % (test code = IM GRANULOCYTES %) 0.9 0.0- 1.0 [facility] CenterNeutrophils # (Auto)2018-12-02 21:46:00* Test Item Value Reference Range Interpretation Comments Neutrophils # (Auto) (test code = 751-8) 3.5 2.1-6.9 [facility] CenterLymphocytes # (Auto)2018-12-02 21:46:00* Test Item Value Reference Range Interpretation Comments Lymphocytes # (Auto) (test code = 26323-6) 0.9 1.0-3.2 L [facility] CenterMonocytes # (Auto)2018-12-02 21:46:00* Test Item Value Reference Range Interpretation Comments Monocytes # (Auto) (test code = 742-7) 0.8 0.2-0.8 [facility] CenterEosinophils # (Auto)2018-12-02 21:46:00* Test Item Value Reference Range Interpretation Comments Eosinophils # (Auto) (test code = 711-2) 0.0 0.0-0.4 [facility] CenterBasophils # (Auto)2018-12-02 21:46:00* Test Item Value Reference Range Interpretation Comments Basophils # (Auto) (test code = 704-7) 0.0 0.0-0.1 [facility] CenterAbsolute Immature Granulocyte (auto 2018-12-02 21:46:00* Test Item Value Reference Range Interpretation Comments Absolute Immature Granulocyte (auto (nic t code = Absolute Immature Granulocyte (auto) 0.05 0-0.1 [facility] CenterUrine Wbbtm1641-58-82 21:45:00* Test Item Value Reference Range Interpretation Comments Urine Color (test code = 5778-6) RED YELLOW H [facility] CenterUrine Qombgju2140-76-40 21:45:00* Test Item Value Reference Range Interpretation Comments Urine Clarity (test code = 56566-6) CLOUDY CLEAR H [facility] CenterUrine Specific Lygdwtj1556-26-03 21:45:00 * Test Item Value Reference Range Interpretation Comments Urine Specific [place] (test code = 5811-5) 1.010 1.010-1.02 5 [facility] CenterUrine jW0390-68-88 21:45:00* Test Item Value Reference Range Interpretation Comments Urine pH (test code = 46089-5) 6 5-7 [facility] CenterUrine Leukocyte Hzksvgac2957-76-83 21:45:00* Test Item Value Reference Range Interpretation Comments Urine Leukocyte Esterase (test code = 71146-8) TRACE NEGATIV E [facility] Lgxtrlr1936-55-75 21:45:00* Test Item Value Reference Range Interpretation Comments Urine Nitrite (test code = 56078-7) NEGATIVE [facility]GATIVE [facility] Fyturlj7629-76-05 21:45:00* Test Item Value Reference Range Interpretation Comments Urine Protein (test code = 55289-7) 2+ NEGATIVE H [facility] Glucose (UA)2018-12-02 21:45:00* Test Item Value Reference Range Interpretation Comments Urine Glucose (UA) (test code = 22422-8) NEGATIVE NEGATIVE [facility] Jrjpzsn3222-39-54 21:45:00* Test Item Value Reference Range Interpretation Comments Urine Ketones (test code = 68456-9) NEGATIVE NEGATIVE [facility] Khldizybnrku8994-57-78 21:45:00* Test Item Value Reference Range Interpretation Comments Urine Urobilinogen (test code = 38347-3) 0.2 0.2-1 [facility] Bihbsdeta3190-54-75 21:45:00* Test Item Value Reference Range Interpretation Comments Urine Bilirubin (test code = 1977-8) NEGATIVE NEGATIVE [facility] Yrawn7100-10-92 21:45:00* Test Item Value Reference Range Interpretation Comments Urine Blood (test code = 14193-4) 3+ NEGATIVE [facility]2018-10-11 15:18:0011.7[facility] AiszajnKQUHEQYMZJ3449-69-73 15:18:0014.2[facility] GzsbvtjKNENKMHVHQ0230-62-38 15:18:0034.5[facility] VzlxjdwHBCKFEYXRG1478-01-57 15:18:004.9[facility] PXGWXOXONS9602-18-81 15:18:0010.5[facility] XxprldeXCAWNETPLD2245-49-44 15:18:00 3.29[facility] PnpzsjiDPYBVBXREF3199-23-51 15:18:0030.4[facility] 2017-11-16 15:18:0092.4[facility] DpgfehfMZJHRQSFDC8112-97-69 15:18:00* Test Item Value Reference Range Interpretation Comments MCH (test code = MCH) 31.9 pg 27.0-31.0 [facility] EiiweshZMRCAUUGXP5585-61-77 15:18:30999Wfeknajt HermannHEMATOLOGY 2017-11-16 15:18:001+ *ABN*(11/16/17 10:18 AM)[facility]ann[facility] 2017-11-16 15:18:002.0[facility] AyuegcvYVVBNSLUKE2096-12-26 15:18:0031.0[facility] MoxluumYIYADFWYLG2012-30-24 15:18:000.0[facility] CqereggXVJLATBHOH0059-19-33 15:18:001.0[facility] TsnyuiuEVCDQNBYOI4548-06-95 15:18:001.0[facility] RUMUKIKXAT0422-30-00 15:18:00Normal (11/16/17 10:18 AM)[facility] NNEMHWUMUK7293-46-79 15:18:000.0[facility] PqvcqrgALZEDDUFDV4181-95-93 15:18:000.0 [facility] AoacmxmZZGFRYDYOD5472-04-79 15:18:001.5[facility]annHEMATOLOGY 2017-11-16 15:18:000.0[facility] CqlshowBFRTRUPFPQ4854-85-68 15:18:000.0[facility] NutwcooBVEHFYCTGP3258-24-48 15:18:0065.0[facility] XeivzbiGODXEIAUSA6236-14-43 15:18:001+ *ABN*(11/16/17 10:18 AM)[facility] MwmdgfkHPYWRPOWER4177-02-05 15:18:00 * Test Item Value Reference Range Interpretation Comments Tot Cell Ct (test code = Tot Cell Ct) 100 1 [facility] KknownkDOMCDROHEH7647-03-67 15:18:00Normal (11/16/17 10:18 AM)[facility] LqqmdxiUPWSSHWWYC3768-91-76 15:18:003.3[facility] KpxklniLEAXJUXURG9633-79-39 15:18:002.1[facility]
[2019-12-28] MEDS ORDERED: FUROSEMIDE INJ 10 MG/ML 4 ML VIAL IV ONE (11:30)
[2019-12-28 13:41] VITALS: BP 152/51
[2019-12-28 16:49] VITALS: BP 157/56
--- NOTE | 2019-12-28 17:04 | NUR ---
84 y/o male Dx with chest pain evaluated for PT services. Pt was (I) with bed mobility and transfers. Ambulated ~400ft w/o AD, Mod(I). No LOB and steady. Safe to ambulate on his own in the hallway 2-3x/week. No PT needed at this time. Addendum: 12/28/19 at 1706 by Law Short PT Amended: Links added.
[2019-12-28] MEDS ORDERED: CEFDINIR300 MG PO (17:05)
[2019-12-28] MEDS ORDERED: LASIX20 MG PO (17:06)
[2019-12-28] MEDS ORDERED: ASPIRIN81 MG PO (17:09)
--- NOTE | 2019-12-28 18:03 | NUR ---
PT DISCHARGE TO HOME @ 1743 VIA WHEELCHAIR. PT IN STABLE CONDITION. RESPIRATIONS EVEN AND BREATHING UNLABORED. PT BELONGINGS WITH PATIENT AND SPOUSE. TELE REMOVED. IV REMOVED WITH TIP INTACT. PAPERWORK AND PRESCRIPTIONS GIVEN TO PATIENT. PT QUESTIONS HAVE BEEN ANSWERED.
[2019-12-28] MEDS ORDERED: ATORVASTATIN 20 MG TAB PO SCH (21:00)
[2019-12-28] MEDS ORDERED: NON-FORMULARY MEDICATION (Lovastatin 20 MG) PO SCH (21:00)
--- NOTE | 2019-12-28 21:23 | Progress Note ---
DATE: 12/28/2019 Cardiology Progress Note SUBJECTIVE: Chest pain resolved. Shortness of breath improved. Blood pressure better. No new complaints. OBJECTIVE: VITAL SIGNS: Temperature 98.6, heart rate 77, blood pressure 166/58, respiratory rate 20, O2 saturation 95%. GENERAL: No acute distress. Alert. NECK: No JVD. CHEST: Clear to auscultation. CARDIOVASCULAR: Regular rate and rhythm. Normal S1 and S2. No S3 or S4. ABDOMEN: Soft. Bowel sounds positive. EXTREMITIES: Trace edema. CARDIOVASCULAR MEDICATIONS: Reviewed. 1. Atorvastatin 10 mg at bedtime. 2. Hydralazine 25 mg t.i.d. 3. Furosemide 20 mg daily. 4. Isosorbide mononitrate 30 mg daily. 5. Aspirin 81 mg daily. 6. Lisinopril 40 mg daily. 7. Amlodipine 5 mg daily. 8. Metoprolol tartrate 25 mg b.i.d. 9. Furosemide 20 mg p.o. daily and additional 40 mg IV x1 given this morning. STUDIES: Reviewed. Potassium will be repleted. Potassium 3.2. Sodium 138, chloride 104, bicarbonate 27, BUN 23, creatinine 1.19, glucose 114. White blood cells 5.5, hemoglobin 8.4, platelets 120. PT 14.7, PTT 37.3, INR 1.09. AST 16, ALT 10, alkaline phosphatase 27, total bilirubin 0.6. ASSESSMENT AND PLAN: An 84-year-old man with: 1. Acute on chronic diastolic heart failure. 2. Aortic insufficiency, mild. 3. Hypertension. 4. Dyslipidemia. 5. Anemia. 6. Myelodysplastic syndrome. RECOMMEND: 1. Continue diuretics. 2. Continue rest of cardiovascular medications, up titrate beta-erika dosing. 3. Outpatient followup in 2 weeks post discharge. Carloz Rosario MD AFV/MODL /[id number]
--- NOTE | 2019-12-28 22:18 | History and Physical ---
CHIEF COMPLAINT: Chest pain. HISTORY OF PRESENT ILLNESS: An 84-year-old male, with history of type 2 diabetes, hypertension, hyperlipidemia, anemia, MDS. He presented to the ED with complaints of underlying chest pain and shortness of breath. The patient was evaluated by Cardiology. The patient reports having some orthopnea and dyspnea on exertion. Imaging studies consistent with pulmonary edema and improved after giving diuretics. The patient was recently at [facility] for underlying MDS, was given blood transfusion. The patient improved with discharge to home. The patient on this presentation has some shortness of breath, but during my evaluation, it all resolved after given diuretics by Cardiology. The patient states that the chest pressure and shortness of breath all started yesterday morning on 12/27/2019. The patient was seen and evaluated at bedside on the medical floor. He is currently doing well with no other issues at this time. He reports he is doing well. He is ambulating with no issues and no evidence of any orthopnea or dyspnea on exertion. REVIEW OF SYSTEMS: Pertinent positive for shortness of breath and chest pain. The rest of 14-point review of systems are reviewed with the patient and are negative. ALLERGIES: NO KNOWN DRUG ALLERGIES. HOME MEDICATIONS: Aspirin, Lasix, hydrochlorothiazide, eyedrops, multivitamins, omeprazole, amlodipine, fenofibrate, hydralazine, lisinopril, lovastatin, and metoprolol. PAST MEDICAL HISTORY: Hypertension, hyperlipidemia, elevated triglycerides, acid reflux, history of myelodysplastic syndrome, anemia, and bladder cancer. PAST SURGICAL HISTORY: Bladder tumor resection, back surgery. PAST FAMILY HISTORY: Hypertension diabetes. SOCIAL HISTORY: No drugs. No alcohol. Does not smoke. Good social support. PHYSICAL EXAMINATION: VITAL SIGNS: Temperature is 98.1, pulse 61, respiratory rate is 18, blood pressure 157/56, and pulse ox 99% on room air. GENERAL: Not in acute distress, alert and oriented x3, cooperative on examination. HEENT: Normocephalic, atraumatic. Eyes; pupils are equal, round, and reactive to light bilaterally. Extraocular movements intact bilaterally. Throat, no evidence of erythema of exudates in the posterior pharynx. Has poor dentition. NECK: Supple. Good range of motion. PULMONARY: Clear to auscultation bilaterally. No wheezing, rales, or rhonchi. No crackles appreciated. CARDIOVASCULAR: Positive S1 and S2. No gallop. ABDOMEN: Soft, nondistended, and nontender to palpation. Bowel sounds present. MUSCULOSKELETAL: Strength 5/5 throughout. NEUROLOGIC: Alert and oriented x3 on examination. SKIN: Intact warm to touch. Good cap refill. PSYCHIATRIC: Normal affect and mood. EXTREMITIES: No edema. Good range of motion throughout. LABORATORY DATA: Labs show white count was 5.5, hemoglobin 8.4, hematocrit 24.9, and platelets of 120. Coagulation; PT 14 INR 1, and PTT 37. Chemistry sodium 138, potassium 3.2 replaced. Chloride 104, bicarb 27, anion gap of 10, BUN is 23, creatinine 1.1, glucose is 114, calcium is 8.2, phosphorus 3.2, magnesium 1.7, total bilirubin 0.6, AST 16, ALT 10, and alkaline phosphatase 27. Troponins were all negative at 0.041. Total protein 5.6, albumin 3.3, LDL 49. Lipase level is found to be 38. TSH is 0.7. BNP was 885. Serology; coronavirus not detected. MICROBIOLOGY: None. IMAGING STUDIES: Chest x-ray shows bilateral lower lobe opacities suggestive of atelectasis or pneumonia. IMPRESSION: 1. Chest pain likely atypical in nature. 2. Acute exacerbation of congestive heart failure, likely diastolic dysfunction. 3. History of myelodysplastic syndrome. 4. Type 2 diabetes. 5. Anemia. PLAN: At this time, trend cardiac enzymes so far they are found to be negative. Cardioprotective medications. Cardiology recommendations noted likely to be CHF exacerbation. Continue with anti-platelet therapy, statin, and beta-blockade. Resume same home medications for now. Await final recommendations by Cardiology for discharge planning. Given IV diuretics. BNP is elevated likely to be heart failure in nature. During my evaluation, the patient was ambulating with no issues and reports no more shortness of breath. SCDs for DVT prophylaxis. MD URSULA El/MODL /[id number]
--- NOTE | 2019-12-28 23:08 | Discharge Summary ---
FINAL DISCHARGE DIAGNOSES: 1. Atypical chest pain. 2. Acute exacerbation of congestive heart failure with diastolic dysfunction. 3. Type 2 diabetes. 4. Myelodysplastic syndrome. Follow up with Hematology as an outpatient. CONSULTANTS: Cardiology. PHYSICAL EXAMINATION: VITAL SIGNS: Temperature is 98.1, pulse 61, respiratory rate is 18, blood pressure 157/56, pulse ox 99% on room air. LABORATORIES: Show white count was 5.5, hemoglobin 8.5, hematocrit is 24.9, platelets of 120. Coagulation; PT 14, INR 1.09, PTT 37. Chemistry; sodium 138, potassium 3.2, replaced, chloride 104, bicarb 27, anion gap of 10, BUN is 23, creatinine is 1.1. Glucose is 114. Calcium is 8.2, phosphorus 3.2, magnesium 1.7. Total bilirubin 0.6. AST 16, ALT 10, alk phos 27. Troponins were all negative. BNP was found to be 885. LDL was 49. TSH 0.7. Lipase level 38. Serology, coronavirus not detected. Microbiology, none. IMAGING STUDIES: Chest x-ray shows some bilateral lower lobe opacity suggestive of atelectasis or pneumonia. HOSPITAL COURSE: This is an 84-year-old male, has a history of myelodysplastic syndrome. He came into the ED with complaints of chest pain and shortness of breath. The patient was admitted and Cardiology was consulted. The patient had cardiac enzymes, which were found to be negative. Imaging studies consistent with pulmonary edema and was given IV diuretics. He was evaluated by Cardiology and recommended cardioprotective meds as well as diuretics. The patient stayed overnight after given diuretics with much improvement. In fact, the patient had no more evidence of orthopnea or any dyspnea on exertion. Cardiology recommends outpatient followup with him in the office in 2 weeks' time. Cardiology reports the patient has diastolic heart failure, is likely etiology of his shortness of breath and now all resolved. He will need a cardiac stress test as an outpatient. As for his rest of his medical issues, they are currently at baseline with no changes needed. He will follow up with the rest of consultants as described that he sees as an outpatient. He will follow up with Cardiology in 1 to 2 weeks' time. The patient was back to normal baseline with no complaints. He was discharged on diuretics as well as oral antibiotics. Despite he does not have a white count or any fever in the event he did have some source of infection, he will be treated accordingly. On the day of discharge, vital signs were stable, labs reviewed and stable. The patient is seen and evaluated and examined thoroughly on the day of discharge, no other complaints. The patient verbalized understanding and agrees to plan of care to follow up as an outpatient with the primary care physician in 1 week and his spring tester in 1 to 2 weeks' time. MEDICATIONS: See med reconciliation form. DISPOSITION: Home. CONDITION: Stable. DIET: Heart healthy. In the event of any worsening symptoms, the patient was advised to come back to the ED for further evaluation. Discharge summary took greater than 35 minutes. The patient was stable prior to being discharged to home, is cleared for discharge by Cardiology. MD URSULA El/MODAlvarez /[id number]
[2019-12-29] MEDS ORDERED: Fenofibrate 160 MG PO SCH (09:00)
== END 2019-12-28 17:43 | disposition home or self-care (01) ==
LOC: ER 12:05 → ERHOLD 14:10 → MED/SURG3 15:18
PROVIDERS: ADMIT Internal Medicine; ATTEND Internal Medicine
DX: I11.0 Hypertensive heart disease with heart failure (principal); I50.33 Acute on chronic diastolic (congestive) heart failure; E11.9 Type 2 diabetes mellitus without complications; K21.9 Gastro-esophageal reflux disease without esophagitis; E78.5 Hyperlipidemia, unspecified; D46.9 Myelodysplastic syndrome, unspecified; I35.1 Nonrheumatic aortic (valve) insufficiency; D63.8 Anemia in other chronic diseases classified elsewhere; E87.6 Hypokalemia; N18.9 Chronic kidney disease, unspecified; N17.9 Acute kidney failure, unspecified; Z20.828 Contact with and (suspected) exposure to other viral communicable diseases
CPT/HCPCS: 36415; 71045; 80053; 80061; 82550; 82553; 82948; 83690; 83735; 83880; 84100; 84443; 84484; 85025; 85610; 85730; 93005; 93306; 99284; G0378; J1940; U0002

== ENCOUNTER 2020-01-22 08:35 | Inpatient (IN) | payer OTHER ==
[2020-01-20 13:04] LABS: BASOPHILS % 0.6 % (0.0-1.0); EOSINOPHILS # (AUTO) 0.1 (0.0-0.4); HEMATOCRIT 28.1 % (38.2-49.6); HEMOGLOBIN 9.2 g/dL (14.0-18.0); LYMPHOCYTES # (AUTO) 0.9 (1.0-3.2); MEAN CORPUSCULAR HEMOGLOBIN 30.4 pg (28-32); MEAN CORPUSCULAR HGB CONC 32.7 g/dL (31-35); MEAN CORPUSCULAR VOLUME 92.7 fL (81-99); MONOCYTES # (AUTO) 1.2 (0.2-0.8); MONOCYTES % 17.8 % (4.4-11.3); NEUTROPHILS # (AUTO) 4.4 (2.1-6.9); NEUTROPHILS % 65.6 % (38.7-80.0); PLATELET COUNT 122 x10e3/uL (140-360); RED BLOOD COUNT 3.03 x10e6/uL (4.3-5.7); RED CELL DISTRIBUTION WIDTH 14.6 % (11.7-14.4)
[2020-01-20 13:20] LABS: ANION GAP 14.6 mmol/L (8-16); CALCIUM 8.7 mg/dL (8.4-10.2); CREATININE, SERUM 1.3 mg/dL (0.72-1.25); POTASSIUM 3.6 mmol/L (3.5-5.1)
[~2020-01-22] VITALS: Ht 170.2 cm; Wt 66.2 kg
[~2020-01-22 08:35] MED LIST changes: +ARTIFICIAL TEAR15 ML OU; +ASPIRIN81 MG PO; +CEFDINIR300 MG PO; +FENOFIBRATE160 MG PO; +LASIX20 MG PO; +OXYBUTYNIN CHLOR5 MG PO
[2020-01-22] MEDS ORDERED: GENTAMICIN 80MG/NS 100 ML 100 ML IV ONE ×2 (09:52→10:02)
[2020-01-22] MEDS ORDERED: CEFTRIAXONE SOD 1 GM/NS 50 ML 50 ML IV ONE (09:52)
[2020-01-22] MEDS ORDERED: SODIUM CHLORIDE 0.9% 1000ML 1,000 ML ONE (09:55)
[2020-01-22] MEDS ORDERED: IOPAMIDOL 300MG/ML 50ML INFUS..BTL IV ONE (11:17)
[2020-01-22] MEDS ORDERED: B&O 60MG R/S 60 MG SUPP PR ONE (11:17)
[2020-01-22] MEDS ORDERED: SEVOFLURANE INHAL SOLN 250 ML PEN BTL ONE (12:17)
[2020-01-22] MEDS ORDERED: LIDOCAINE HCL 2% JELLY 5 ML TUBE ONE (12:17)
[2020-01-22] MEDS ORDERED: LIDOCAINE HCL 2% LOCAL INJ 5 ML SDV VIAL INJ ONE (12:17)
[2020-01-22] MEDS ORDERED: PROPOFOL IV EMULSION 10 MG/ML 20 ML VIAL ONE (12:17)
[2020-01-22] MEDS ORDERED: DIPHENHYDRAMINE HCL 25 MG CAP PO PRN (13:00)
[2020-01-22] MEDS ORDERED: METOCLOPRAMIDE HCL 10 MG/2ML VIAL IV PRN (13:00)
[2020-01-22] MEDS ORDERED: FENTANYL CITRATE/PF 100MCG/2 ML INJ ONE (13:29)
[2020-01-22 14:45] VITALS: BP 150/54
[2020-01-22 14:51] VITALS: BP 150/54
[2020-01-22] MEDS: SODIUM CHLORIDE 0.9% 1000ML 1,000 ML IV SCH ×2 (15:49→23:00)
[2020-01-22 15:57] LABS: BASOPHILS % 0.3 % (0.0-1.0); EOSINOPHILS % 0.7 % (0.0-6.0); HEMATOCRIT 21.1 % (38.2-49.6); LYMPHOCYTES # (AUTO) 1.1 (1.0-3.2); LYMPHOCYTES % 18.3 % (18.0-39.1); MEAN CORPUSCULAR HEMOGLOBIN 30.4 pg (28-32); MEAN CORPUSCULAR HGB CONC 32.7 g/dL (31-35); MONOCYTES # (AUTO) 0.9 (0.2-0.8); MONOCYTES % 15.3 % (4.4-11.3); NEUTROPHILS # (AUTO) 3.8 (2.1-6.9); NEUTROPHILS % 63.7 % (38.7-80.0); PLATELET COUNT 113 x10e3/uL (140-360); RED BLOOD COUNT 2.27 x10e6/uL (4.3-5.7); RED CELL DISTRIBUTION WIDTH 14.7 % (11.7-14.4)
[2020-01-22 16:02] LABS: HEMOGLOBIN 6.9 g/dL (14.0-18.0)
[2020-01-22 16:15] LABS: ANION GAP 9.4 mmol/L (8-16); CALCIUM 7.9 mg/dL (8.4-10.2); CREATININE, SERUM 1.28 mg/dL (0.72-1.25); POTASSIUM 3.4 mmol/L (3.5-5.1)
[2020-01-22 16:27] VITALS: BP 150/54
[2020-01-22] MEDS ORDERED: SODIUM CHLORIDE 0.9% 250ML 250 ML IV ONE (16:30)
[2020-01-22] MEDS: DOCUSATE SODIUM 100 MG CAP PO SCH (16:31)
[2020-01-22 20:00] VITALS: BP 105/46
[2020-01-22 20:45] VITALS: BP 105/46
[2020-01-22] MEDS ORDERED: SODIUM CHLORIDE 0.9% 250ML 250 ML ONE (21:28)
[2020-01-23] VITALS (7 sets, daily range): BP systolic 93–143; BP diastolic 43–55
[2020-01-23] MEDS ORDERED: SODIUM CHLORIDE 0.9% 250ML 250 ML ONE ×2 (00:01→07:36)
[2020-01-23] MEDS: ACETAMINOPHEN/CODEINE 300MG - 30MG TAB PO PRN ×2 (02:53→11:15)
[2020-01-23 04:47] LABS: BASOPHILS # (AUTO) 0.1 (0.0-0.1); BASOPHILS % 0.4 % (0.0-1.0); EOSINOPHILS # (AUTO) 0.1 (0.0-0.4); EOSINOPHILS % 0.9 % (0.0-6.0); HEMATOCRIT 23.1 % (38.2-49.6); HEMOGLOBIN 7.8 g/dL (14.0-18.0); LYMPHOCYTES # (AUTO) 0.5 (1.0-3.2); LYMPHOCYTES % 4.4 % (18.0-39.1); MEAN CORPUSCULAR HEMOGLOBIN 31.5 pg (28-32); MEAN CORPUSCULAR HGB CONC 33.8 g/dL (31-35); MEAN CORPUSCULAR VOLUME 93.1 fL (81-99); MONOCYTES # (AUTO) 1.8 (0.2-0.8); MONOCYTES % 15.5 % (4.4-11.3); NEUTROPHILS % 77.2 % (38.7-80.0); PLATELET COUNT 106 x10e3/uL (140-360); RED BLOOD COUNT 2.48 x10e6/uL (4.3-5.7); RED CELL DISTRIBUTION WIDTH 14.4 % (11.7-14.4)
[2020-01-23 05:04] LABS: ANION GAP 13.9 mmol/L (8-16); CALCIUM 7.9 mg/dL (8.4-10.2); CREATININE, SERUM 2.05 mg/dL (0.72-1.25); POTASSIUM 3.9 mmol/L (3.5-5.1)
[2020-01-23] MEDS ORDERED: HYDRALAZINE HCL 20 MG/ML VIAL IV PRN (08:15)
[2020-01-23] MEDS ORDERED: DEXTROSE 50% SYRINGE 50 ML IV PRN (08:15)
[2020-01-23] MEDS ORDERED: MAGNESIUM SULFATE 2GM/50ML IV ONE (08:15)
[2020-01-23] MEDS ORDERED: ARTIFICIAL TEARS (OPTH) 15 ML BTL OU PRN (08:15)
[2020-01-23] MEDS ORDERED: MAGNESIUM SULFATE 2GM/50ML 50 ML IV ONE (09:00)
[2020-01-23] MEDS: AMLODIPINE BESYLATE 5 MG TAB PO SCH (09:00)
[2020-01-23] MEDS ORDERED: FUROSEMIDE INJ 10 MG/ML 4 ML VIAL IV ONE (09:00)
[2020-01-23] MEDS: METOPROLOL TARTRATE 25 MG TAB PO SCH ×2 (10:02→16:23)
[2020-01-23] MEDS: CEFTRIAXONE SOD 1 GM/NS 50 ML 50 ML IV SCH (10:02)
[2020-01-23] MEDS: DOCUSATE SODIUM 100 MG CAP PO SCH ×2 (10:02→16:22)
[2020-01-23] MEDS: OMEPRAZOLE 20 MG CAP PO SCH (10:28)
[2020-01-23] MEDS: B&O 60MG R/S 60 MG SUPP PR PRN (12:10)
[2020-01-23] MEDS: INSULIN LISPRO 100 UNIT/1 ML 3ML VIAL SQ SCH ×2 (12:24→16:56)
[2020-01-23] MEDS: ONDANSETRON HCL INJ 2MG/ML 2ML 2 MG/ML VIAL IV PRN ×2 (14:28→20:43)
[2020-01-23] MEDS: MORPHINE SULFATE 2 MG/ML SYR 1ML IV PRN ×2 (14:28→20:43)
[2020-01-23] MEDS: SODIUM CHLORIDE 0.9% 1000ML 1,000 ML IV SCH (16:22)
[2020-01-23] MEDS: LATANOPROST(OPTH) 2.5 ML BTL OS SCH (20:42)
[2020-01-24] VITALS (8 sets, daily range): BP systolic 133–159; BP diastolic 52–68
[2020-01-24] MEDS: MORPHINE SULFATE 2 MG/ML SYR 1ML IV PRN ×3 (02:52→13:56)
[2020-01-24] MEDS: PHENAZOPYRIDINE HCL 100 MG TAB PO PRN ×2 (02:52→08:20)
[2020-01-24] MEDS: SODIUM CHLORIDE 0.9% 1000ML 1,000 ML IV SCH ×3 (02:53→15:00)
[2020-01-24 05:55] LABS: BASOPHILS % 0.4 % (0.0-1.0); EOSINOPHILS # (AUTO) 0.2 (0.0-0.4); EOSINOPHILS % 1.4 % (0.0-6.0); HEMATOCRIT 21.7 % (38.2-49.6); HEMOGLOBIN 7.1 g/dL (14.0-18.0); LYMPHOCYTES # (AUTO) 0.8 (1.0-3.2); LYMPHOCYTES % 7.4 % (18.0-39.1); MEAN CORPUSCULAR HEMOGLOBIN 29.6 pg (28-32); MEAN CORPUSCULAR HGB CONC 32.7 g/dL (31-35); MEAN CORPUSCULAR VOLUME 90.4 fL (81-99); MONOCYTES # (AUTO) 2.2 (0.2-0.8); MONOCYTES % 19.8 % (4.4-11.3); NEUTROPHILS # (AUTO) 7.7 (2.1-6.9); NEUTROPHILS % 68.6 % (38.7-80.0); PLATELET COUNT 110 x10e3/uL (140-360); RED CELL DISTRIBUTION WIDTH 18.7 % (11.7-14.4)
[2020-01-24 06:26] LABS: ANION GAP 12.9 mmol/L (8-16); CALCIUM 7.2 mg/dL (8.4-10.2); CREATININE, SERUM 2.26 mg/dL (0.72-1.25); POTASSIUM 3.9 mmol/L (3.5-5.1)
[2020-01-24 06:53] LABS: MAGNESIUM 1.8 MG/DL (1.3-2.1); PHOSPHORUS 4.6 MG/DL (2.3-4.7)
[2020-01-24] MEDS: INSULIN LISPRO 100 UNIT/1 ML 3ML VIAL SQ SCH (07:30)
[2020-01-24] MEDS ORDERED: SODIUM CHLORIDE 0.9% 250ML 250 ML IV SCH (07:45)
[2020-01-24] MEDS ORDERED: FUROSEMIDE INJ 10 MG/ML 4 ML VIAL IV ONE (08:00)
[2020-01-24] MEDS: ACETAMINOPHEN/CODEINE 300MG - 30MG TAB PO PRN ×2 (08:20→15:21)
[2020-01-24] MEDS: OMEPRAZOLE 20 MG CAP PO SCH (08:20)
[2020-01-24] MEDS: METOPROLOL TARTRATE 25 MG TAB PO SCH ×2 (08:21→18:27)
[2020-01-24] MEDS: CALCIUM CARBONATE 500 MG CHEWABLE TABS PO SCH ×3 (08:21→21:26)
[2020-01-24] MEDS: CEFTRIAXONE SOD 1 GM/NS 50 ML 50 ML IV SCH (08:21)
[2020-01-24] MEDS: AMLODIPINE BESYLATE 5 MG TAB PO SCH (08:21)
[2020-01-24] MEDS: DOCUSATE SODIUM 100 MG CAP PO SCH (08:21)
[2020-01-24 08:35] LABS: ANISOCYTOSIS SLIGHT; EOSINOPHILS % (MANUAL) 3 % (0-7); LYMPHOCYTES % (MANUAL) 9 % (19-48); MONOCYTES % (MANUAL) 12 % (3.4-9.0); NEUTROPHILS % (MANUAL) 76 % (40-74); PLATELET ESTIMATE SLIGHTLY DECREASED
[2020-01-24 08:37] LABS: OVALOCYTES FEW; SCHISTOCYTES RARE
[2020-01-24 08:39] LABS: PLATELET MORPHOLOGY COMMENT NORMAL; RBC MORPHOLOGY COMMENT NORMAL
[2020-01-24] MEDS ORDERED: BISACODYL 10 MG SUPP PR PRN (09:15)
[2020-01-24] MEDS ORDERED: SODIUM CHLORIDE 0.9% 250ML 250 ML ONE (12:26)
[2020-01-24] MEDS: SENNA-S TABLET PO SCH ×2 (13:56→18:27)
[2020-01-24] MEDS: MAGNESIUM HYDROXIDE 30 ML UDC PO PRN (13:56)
[2020-01-24] MEDS: LATANOPROST(OPTH) 2.5 ML BTL OS SCH (21:21)
[2020-01-24] MEDS: LACTATED RINGER'S 1,000 ML INJ SCH (21:25)
[2020-01-25] VITALS (8 sets, daily range): BP systolic 140–169; BP diastolic 53–68
[2020-01-25] MEDS: MORPHINE SULFATE 2 MG/ML SYR 1ML IV PRN (04:35)
[2020-01-25 06:09] LABS: BASOPHILS % 0.4 % (0.0-1.0); EOSINOPHILS # (AUTO) 0.2 (0.0-0.4); EOSINOPHILS % 1.9 % (0.0-6.0); HEMATOCRIT 27.8 % (38.2-49.6); HEMOGLOBIN 9.2 g/dL (14.0-18.0); LYMPHOCYTES # (AUTO) 0.7 (1.0-3.2); LYMPHOCYTES % 6.7 % (18.0-39.1); MEAN CORPUSCULAR HEMOGLOBIN 30.2 pg (28-32); MEAN CORPUSCULAR HGB CONC 33.1 g/dL (31-35); MEAN CORPUSCULAR VOLUME 91.1 fL (81-99); MONOCYTES # (AUTO) 1.9 (0.2-0.8); MONOCYTES % 18.8 % (4.4-11.3); NEUTROPHILS # (AUTO) 7.1 (2.1-6.9); NEUTROPHILS % 69.6 % (38.7-80.0); PLATELET COUNT 129 x10e3/uL (140-360); RED BLOOD COUNT 3.05 x10e6/uL (4.3-5.7); RED CELL DISTRIBUTION WIDTH 17.2 % (11.7-14.4)
[2020-01-25 06:27] LABS: ANION GAP 12.2 mmol/L (8-16); CALCIUM 7.7 mg/dL (8.4-10.2); CREATININE, SERUM 2.07 mg/dL (0.72-1.25); POTASSIUM 4.2 mmol/L (3.5-5.1)
[2020-01-25] MEDS: OMEPRAZOLE 20 MG CAP PO SCH (08:05)
[2020-01-25] MEDS: MAGNESIUM HYDROXIDE 30 ML UDC PO PRN (08:53)
[2020-01-25] MEDS: AMLODIPINE BESYLATE 5 MG TAB PO SCH (08:53)
[2020-01-25] MEDS: METOPROLOL TARTRATE 25 MG TAB PO SCH ×2 (08:53→18:00)
[2020-01-25] MEDS: CEFTRIAXONE SOD 1 GM/NS 50 ML 50 ML IV SCH (08:53)
[2020-01-25] MEDS: LACTATED RINGER'S 1,000 ML INJ SCH ×2 (08:53→21:01)
[2020-01-25] MEDS: SENNA-S TABLET PO SCH ×2 (08:53→18:00)
[2020-01-25] MEDS: PHENAZOPYRIDINE HCL 100 MG TAB PO PRN ×2 (08:53→18:00)
[2020-01-25] MEDS: CALCIUM CARBONATE 500 MG CHEWABLE TABS PO SCH ×3 (08:53→21:01)
[2020-01-25] MEDS: LATANOPROST(OPTH) 2.5 ML BTL OS SCH (21:00)
[2020-01-26] VITALS (7 sets, daily range): BP systolic 132–169; BP diastolic 60–85
[2020-01-26] MEDS: ACETAMINOPHEN/CODEINE 300MG - 30MG TAB PO PRN ×2 (01:30→17:17)
[2020-01-26 05:29] LABS: BASOPHILS % 0.5 % (0.0-1.0); EOSINOPHILS # (AUTO) 0.2 (0.0-0.4); EOSINOPHILS % 2.1 % (0.0-6.0); HEMATOCRIT 25.8 % (38.2-49.6); HEMOGLOBIN 8.5 g/dL (14.0-18.0); LYMPHOCYTES # (AUTO) 0.6 (1.0-3.2); LYMPHOCYTES % 7.2 % (18.0-39.1); MEAN CORPUSCULAR HEMOGLOBIN 29.7 pg (28-32); MEAN CORPUSCULAR HGB CONC 32.9 g/dL (31-35); MEAN CORPUSCULAR VOLUME 90.2 fL (81-99); MONOCYTES # (AUTO) 1.8 (0.2-0.8); NEUTROPHILS # (AUTO) 6.1 (2.1-6.9); NEUTROPHILS % 68.7 % (38.7-80.0); PLATELET COUNT 128 x10e3/uL (140-360); RED BLOOD COUNT 2.86 x10e6/uL (4.3-5.7)
[2020-01-26 05:47] LABS: ANION GAP 10.9 mmol/L (8-16); CALCIUM 7.8 mg/dL (8.4-10.2); CREATININE, SERUM 1.69 mg/dL (0.72-1.25); POTASSIUM 3.9 mmol/L (3.5-5.1)
[2020-01-26] MEDS: CEFTRIAXONE SOD 1 GM/NS 50 ML 50 ML IV SCH (08:12)
[2020-01-26] MEDS: CALCIUM CARBONATE 500 MG CHEWABLE TABS PO SCH ×3 (08:12→23:32)
[2020-01-26] MEDS: METOPROLOL TARTRATE 25 MG TAB PO SCH ×2 (08:12→15:40)
[2020-01-26] MEDS: SENNA-S TABLET PO SCH ×2 (08:12→15:40)
[2020-01-26] MEDS: AMLODIPINE BESYLATE 5 MG TAB PO SCH (08:12)
[2020-01-26] MEDS: OMEPRAZOLE 20 MG CAP PO SCH (09:05)
[2020-01-26] MEDS: B&O 60MG R/S 60 MG SUPP PR PRN (14:09)
[2020-01-26] MEDS: LATANOPROST(OPTH) 2.5 ML BTL OS SCH (20:32)
[2020-01-27] VITALS (8 sets, daily range): BP systolic 168–171; BP diastolic 60–66
[2020-01-27] MEDS: PHENAZOPYRIDINE HCL 100 MG TAB PO PRN (00:05)
[2020-01-27 05:14] LABS: BASOPHILS % 0.5 % (0.0-1.0); EOSINOPHILS # (AUTO) 0.2 (0.0-0.4); EOSINOPHILS % 2.7 % (0.0-6.0); HEMATOCRIT 27.5 % (38.2-49.6); HEMOGLOBIN 9.1 g/dL (14.0-18.0); LYMPHOCYTES # (AUTO) 0.6 (1.0-3.2); LYMPHOCYTES % 7.7 % (18.0-39.1); MEAN CORPUSCULAR HEMOGLOBIN 29.4 pg (28-32); MEAN CORPUSCULAR HGB CONC 33.1 g/dL (31-35); MONOCYTES # (AUTO) 1.7 (0.2-0.8); MONOCYTES % 21.4 % (4.4-11.3); NEUTROPHILS # (AUTO) 5.2 (2.1-6.9); NEUTROPHILS % 66.2 % (38.7-80.0); PLATELET COUNT 137 x10e3/uL (140-360); RED BLOOD COUNT 3.09 x10e6/uL (4.3-5.7); RED CELL DISTRIBUTION WIDTH 16.5 % (11.7-14.4)
[2020-01-27 05:33] LABS: ANION GAP 10.6 mmol/L (8-16); CREATININE, SERUM 1.39 mg/dL (0.72-1.25); POTASSIUM 3.6 mmol/L (3.5-5.1)
[2020-01-27] MEDS: CEFTRIAXONE SOD 1 GM/NS 50 ML 50 ML IV SCH (08:18)
[2020-01-27] MEDS: AMLODIPINE BESYLATE 5 MG TAB PO SCH (08:19)
[2020-01-27] MEDS: SENNA-S TABLET PO SCH ×2 (08:19→17:07)
[2020-01-27] MEDS: CALCIUM CARBONATE 500 MG CHEWABLE TABS PO SCH ×3 (08:19→21:09)
[2020-01-27] MEDS: OMEPRAZOLE 20 MG CAP PO SCH (08:19)
[2020-01-27] MEDS: METOPROLOL TARTRATE 25 MG TAB PO SCH ×2 (08:19→17:07)
[2020-01-27] MEDS: LATANOPROST(OPTH) 2.5 ML BTL OS SCH (21:09)
[2020-01-28] VITALS: BP 167/64
[2020-01-28] MEDS ORDERED: SODIUM CHLORIDE 0.9% 250ML 250 ML ONE (03:42)
[2020-01-28 04:00] VITALS: BP 171/62
[2020-01-28 07:41] VITALS: BP_SYST 168; BP_SYST 174; BP_DIAS 62; BP_DIAS 63
[2020-01-28 07:45] VITALS: BP 174/63
[2020-01-28] MEDS: OMEPRAZOLE 20 MG CAP PO SCH (07:55)
[2020-01-28] MEDS: SENNA-S TABLET PO SCH (08:05)
[2020-01-28] MEDS: AMLODIPINE BESYLATE 5 MG TAB PO SCH (08:05)
[2020-01-28] MEDS: CEFTRIAXONE SOD 1 GM/NS 50 ML 50 ML IV SCH (08:05)
[2020-01-28] MEDS: CALCIUM CARBONATE 500 MG CHEWABLE TABS PO SCH (08:05)
[2020-01-28] MEDS: METOPROLOL TARTRATE 25 MG TAB PO SCH (08:05)
[2020-01-28] MEDS ORDERED: TYLENOL EXTRA500 MG PO (08:09)
[2020-01-28] MEDS ORDERED: DITROPAN XL5 MG PO (08:10)
[2020-01-28] MEDS ORDERED: CEFUROXIME250 MG PO (08:11)
== END 2020-01-28 09:20 | disposition home or self-care (01) | DRG 709 ==
LOC: OR 08:35 → PACU V 13:02 → MED/SURG 14:45
PROVIDERS: ADMIT Internal Medicine; ATTEND Internal Medicine
PROC: 0TBB8ZX Excision of Bladder, Via Natural or Artificial Opening Endoscopic, Diagnostic (ICD-10-PCS; 2020-01-22)
PROC: 0VB08ZZ Excision of Prostate, Via Natural or Artificial Opening Endoscopic (ICD-10-PCS; 2020-01-22)
PROC: 0T788ZZ Dilation of Bilateral Ureters, Via Natural or Artificial Opening Endoscopic (ICD-10-PCS; 2020-01-22)
PROC: 30233N1 Transfusion of Nonautologous Red Blood Cells into Peripheral Vein, Percutaneous Approach (ICD-10-PCS; 2020-01-22)
PROC: BT14ZZZ Fluoroscopy of Kidneys, Ureters and Bladder (ICD-10-PCS; principal; 2020-01-22 10:30)
PROC: 0TSD4ZZ Reposition Urethra, Percutaneous Endoscopic Approach (ICD-10-PCS; 2020-01-22 10:30)
DX: N40.1 Benign prostatic hyperplasia with lower urinary tract symptoms (principal); C79.11 Secondary malignant neoplasm of bladder; D62 Acute posthemorrhagic anemia; I13.0 Hypertensive heart and chronic kidney disease with heart failure and stage 1 through stage 4 chronic kidney disease, or unspecified chronic kidney disease; N13.8 Other obstructive and reflux uropathy; I50.32 Chronic diastolic (congestive) heart failure; C80.1 Malignant (primary) neoplasm, unspecified; R31.0 Gross hematuria; N13.70 Vesicoureteral-reflux, unspecified; E11.21 Type 2 diabetes mellitus with diabetic nephropathy; E11.22 Type 2 diabetes mellitus with diabetic chronic kidney disease; N18.30 Chronic kidney disease, stage 3 unspecified; D69.6 Thrombocytopenia, unspecified; E78.5 Hyperlipidemia, unspecified; Z20.828 Contact with and (suspected) exposure to other viral communicable diseases
CPT/HCPCS: 36415; 71046; 74420; 80048; 82948; 83036; 83735; 84100; 85025; 86850; 86900; 86920; 88305; 93005; C1758; J0360; J0696; J1580; J1940; J2001; J2270; J2405; J3010; J3475; J7030; J7050; J7121; P9016; P9034; U0002

== ENCOUNTER 2020-02-08 07:56 | Emergency (ER) | payer OTHER ==
[~2020-02-08] VITALS: Ht 172.7 cm; Wt 70.8 kg
[~2020-02-08 07:56] MED LIST changes: +CEFUROXIME250 MG PO; +DITROPAN XL5 MG PO; +TYLENOL EXTRA500 MG PO
[2020-02-08] MEDS ORDERED: SODIUM CHLORIDE 0.9% 1000ML 1,000 ML IV STA (08:02)
[2020-02-08] MEDS ORDERED: FAMOTIDINE 20 MG/2 ML VIAL IV ONE ×2 (08:15→08:45)
[2020-02-08] MEDS ORDERED: ONDANSETRON HCL INJ 2MG/ML 2ML 2 MG/ML VIAL IV ONE ×2 (08:15→08:45)
[2020-02-08] MEDS ORDERED: ACETAMINOPHEN 325 MG TAB ONE (08:25)
[2020-02-08] MEDS ORDERED: SODIUM CHLORIDE 0.9% 1000ML 1,000 ML ONE (08:25)
[2020-02-08] MEDS ORDERED: CEFTRIAXONE SOD 1 GM/NS 50 ML 50 ML IV ONE (08:30)
[2020-02-08] MEDS ORDERED: ACETAMINOPHEN 325 MG TAB PO ONE (08:30)
[2020-02-08] MEDS ORDERED: CEFTRIAXONE SOD 1 GM VIAL IV ONE (08:30)
[2020-02-08] MEDS ORDERED: FLEET ENEMA133 ML PR (08:49)
[2020-02-08] MEDS ORDERED: OMEPRAZOLE20 M1 PO (08:49)
[2020-02-08] MEDS ORDERED: ZOFRAN4 MG PO (08:49)
[2020-02-08] MEDS ORDERED: TAMIFLU75 MG PO (09:01)
[2020-02-08 10:01] VITALS: BP 160/73
== END 2020-02-08 10:03 | disposition home or self-care (01) ==
LOC: FSED 08:11
DX: J10.1 Influenza due to other identified influenza virus with other respiratory manifestations (principal); K59.00 Constipation, unspecified; E86.0 Dehydration; I10 Essential (primary) hypertension; E11.9 Type 2 diabetes mellitus without complications; E78.5 Hyperlipidemia, unspecified; I50.9 Heart failure, unspecified; Z85.51 Personal history of malignant neoplasm of bladder
CPT/HCPCS: 74176; 80053; 81003; 83518; 85025; 87400; 96374; 96376; 99284; J0696; J2405; J7030

== ENCOUNTER 2020-02-17 10:31 | Emergency (ER) | payer OTHER ==
[~2020-02-17] VITALS: Ht 172.7 cm; Wt 70.8 kg
[~2020-02-17 10:31] MED LIST changes: +FLEET ENEMA133 ML PR; +OMEPRAZOLE20 M1 PO; +TAMIFLU75 MG PO; +ZOFRAN4 MG PO
[2020-02-17 11:17] LABS: EOSINOPHILS % 0.7 % (0.0-6.0); HEMATOCRIT 25.1 % (38.2-49.6); HEMOGLOBIN 8.5 g/dL (14.0-18.0); LYMPHOCYTES # (AUTO) 0.4 (1.0-3.2); MEAN CORPUSCULAR HGB CONC 33.9 g/dL (31-35); MEAN CORPUSCULAR VOLUME 85.7 fL (81-99); MONOCYTES # (AUTO) 1.1 (0.2-0.8); MONOCYTES % 27.6 % (4.4-11.3); NEUTROPHILS # (AUTO) 2.5 (2.1-6.9); NEUTROPHILS % 60.7 % (38.7-80.0); PLATELET COUNT 101 x10e3/uL (140-360); RED BLOOD COUNT 2.93 x10e6/uL (4.3-5.7); RED CELL DISTRIBUTION WIDTH 15.8 % (11.7-14.4)
[2020-02-17 12:03] LABS: CLARITY,URINE CLEAR (CLEAR); COLOR,URINE YELLOW (YELLOW)
[2020-02-17 12:04] LABS: KETONES,URINE NEGATIVE (NEGATIVE); LEUKOCYTE ESTERASE ,URINE SMALL (NEGATIVE); NITRITE,URINE NEGATIVE (NEGATIVE); PROTEIN,URINE DIPSTICK 2+ (NEGATIVE); URINE UROBILINOGEN 0.2 mg/dL (0.2 - 1)
[2020-02-17 12:08] LABS: ALBUMIN 2.9 g/dL (3.5-5.0); ALBUMIN/GLOBULIN RATIO 1.1 (0.8-2.0); ANION GAP 10.5 mmol/L (8-16); CALCIUM 7.7 mg/dL (8.4-10.2); CREATININE, SERUM 1.28 mg/dL (0.72-1.25)
[2020-02-17 12:18] LABS: POTASSIUM 2.5 mmol/L (3.5-5.1)
[2020-02-17 12:29] LABS: BACTERIA,URINE RARE /HPF; EPITHELIAL CELLS,URINE FEW /LPF; RBC,URINE 21-50 /HPF (0-5); WBC,URINE (MAN) 21-50 /HPF (0-5)
[2020-02-17] MEDS ORDERED: POTASSIUM CHLORIDE 10MEQ EA PO ONE (12:30)
[2020-02-17] MEDS ORDERED: SODIUM CHLORIDE 0.9% 1000ML 1,000 ML IV SCH (12:30)
[2020-02-17] MEDS ORDERED: POTASSIUM CHLORIDE 20MEQ/100ML 100 ML IV ONE (12:30)
[2020-02-17 15:26] VITALS: BP 151/61
== END 2020-02-17 15:27 | disposition home or self-care (01) ==
LOC: ER 10:58
DX: E87.6 Hypokalemia (principal); E87.1 Hypo-osmolality and hyponatremia; I10 Essential (primary) hypertension; I50.9 Heart failure, unspecified; E78.5 Hyperlipidemia, unspecified; E11.9 Type 2 diabetes mellitus without complications; Z85.51 Personal history of malignant neoplasm of bladder
CPT/HCPCS: 36415; 71045; 80053; 81001; 84484; 85025; 87086; 99284; J3480; J7030

== ENCOUNTER 2020-06-19 08:55 | Emergency (ER) | payer OTHER ==
[~2020-06-19] VITALS: Ht 172.7 cm; Wt 70.8 kg
[2020-06-19 09:39] LABS: BASOPHILS % 0.3 % (0.0-1.0); EOSINOPHILS # (AUTO) 0.2 (0.0-0.4); EOSINOPHILS % 1.4 % (0.0-6.0); HEMATOCRIT 26.5 % (38.2-49.6); HEMOGLOBIN 8.8 g/dL (14.0-18.0); LYMPHOCYTES # (AUTO) 0.6 (1.0-3.2); LYMPHOCYTES % 4.6 % (18.0-39.1); MEAN CORPUSCULAR HEMOGLOBIN 31.9 pg (28-32); MEAN CORPUSCULAR HGB CONC 33.2 g/dL (31-35); MONOCYTES % 16.4 % (4.4-11.3); NEUTROPHILS % 74.8 % (38.7-80.0); PLATELET COUNT 223 x10e3/uL (140-360); RED BLOOD COUNT 2.76 x10e6/uL (4.3-5.7); RED CELL DISTRIBUTION WIDTH 15.2 % (11.7-14.4)
[2020-06-19 09:45] LABS: CLARITY,URINE CLEAR (CLEAR); COLOR,URINE YELLOW (YELLOW); LEUKOCYTE ESTERASE ,URINE TRACE (NEGATIVE)
[2020-06-19 09:46] LABS: KETONES,URINE NEGATIVE (NEGATIVE); NITRITE,URINE NEGATIVE (NEGATIVE); PROTEIN,URINE DIPSTICK >=300 (NEGATIVE); URINE UROBILINOGEN 1 mg/dL (0.2 - 1)
[2020-06-19 09:52] LABS: BACTERIA,URINE MANY /HPF; EPITHELIAL CELLS,URINE FEW /LPF; RENAL EPITHELIAL CELLS,URINE MANY; TRANSITIONAL EPI CELLS,URINE FEW; WBC,URINE (MAN) >50 /HPF (0-5)
[2020-06-19 09:59] LABS: ALBUMIN 3.2 g/dL (3.5-5.0); ANION GAP 14.4 mmol/L (8-16); CALCIUM 8.7 mg/dL (8.4-10.2); CREATININE, SERUM 1.74 mg/dL (0.72-1.25); POTASSIUM 3.4 mmol/L (3.5-5.1)
[2020-06-19] MEDS ORDERED: SODIUM CHLORIDE 0.9% 1000ML 1,000 ML IV SCH (10:15)
[2020-06-19] MEDS ORDERED: SODIUM CHLORIDE 0.9% 250ML 250 ML ONE (10:54)
[2020-06-19] MEDS ORDERED: IOPAMIDOL 370 MG/ML 200 ML INFUS..BTL INJ ONE (10:54)
[2020-06-19] MEDS ORDERED: CEFTRIAXONE SOD 1 GM VIAL IM ONE (13:00)
[2020-06-19] MEDS ORDERED: SODIUM CHLORIDE 0.9% 50ML 50 ML ONE (13:43)
[2020-06-19] MEDS ORDERED: DIFLUCAN100 MG PO (14:48)
== END 2020-06-19 15:14 | disposition home or self-care (01) ==
LOC: ER 09:09
DX: R31.9 Hematuria, unspecified (principal); N39.0 Urinary tract infection, site not specified; I10 Essential (primary) hypertension; E11.9 Type 2 diabetes mellitus without complications; E78.5 Hyperlipidemia, unspecified; I50.9 Heart failure, unspecified; D64.9 Anemia, unspecified; Z85.51 Personal history of malignant neoplasm of bladder
CPT/HCPCS: 36415; 74178; 80053; 81001; 85025; 87086; 99284; J0696; J7030; J7050; Q9967

== ENCOUNTER 2020-06-21 11:42 | Emergency (ER) | payer OTHER ==
[~2020-06-21] VITALS: Ht 172.7 cm; Wt 70.8 kg
[~2020-06-21 11:42] MED LIST changes: +DIFLUCAN100 MG PO
[2020-06-21 18:44] VITALS: BP 124/52
== END 2020-06-21 17:00 | disposition home or self-care (01) ==
LOC: ER 12:36
DX: L27.0 Generalized skin eruption due to drugs and medicaments taken internally (principal); R19.7 Diarrhea, unspecified; T37.8X5A Adverse effect of other specified systemic anti-infectives and antiparasitics, initial encounter; I10 Essential (primary) hypertension; E11.9 Type 2 diabetes mellitus without complications; E78.5 Hyperlipidemia, unspecified; I50.9 Heart failure, unspecified; Z85.51 Personal history of malignant neoplasm of bladder